=== PATIENT | female | born 1965 | race Caucasian/White ===

== ENCOUNTER 2024-01-04 17:53 | Observation (INO) | payer OTHER ==
[2024-01-04 19:42] LABS: Anisocytosis Slight; Basophils % (A) 0 %; Eosinophils # (A) 0.1 k/uL (0-0.7); Eosinophils % (A) 2 %; HCT 30.7 % (34.0-46.0); HGB 9.8 gm/dL (11.4-16.0); Hypochromasia Marked; Lymphocytes # (A) 0.4 k/uL (1.0-4.8); Lymphocytes % (A) 13 %; MCH 32.6 pg (25.0-35.0); MCHC 31.7 g/dL (31.0-37.0); MCV 102.7 fL (80.0-100.0); Macrocytosis Moderate; Mean Platelet Volume 9.5; Monocytes # (A) 0.2 k/uL (0-1.0); Monocytes % (A) 8 %; Neutrophils # (A) 2.1 k/uL (1.3-7.7); Neutrophils % (A) 75 %; RBC 2.99 m/uL (3.80-5.40); WBC 2.8 k/uL (3.8-10.6)
[2024-01-04 19:59] LABS: ALT 47 U/L (4-34); African American GFR (CKD) >90 (>60 ml/min/1.73 sqM); Albumin 2.5 g/dL (3.5-5.0); Anion Gap 4 mmol/L; Blood Urea Nitrogen 11 mg/dL (7-17); Calcium 7.6 mg/dL (8.4-10.2); Carbon Dioxide 28 mmol/L (22-30); Chloride 108 mmol/L (98-107); Glucose 120 mg/dL (74-99); Non-African American GFR(CKD) 90 (>60 ml/min/1.73 sqM); Sodium 140 mmol/L (137-145); Total Bilirubin 1.4 mg/dL (0.2-1.3); Total Protein 5.8 g/dL (6.3-8.2)
[2024-01-04 20:02] LABS: AST 75 U/L (14-36); Alkaline Phosphatase 139 U/L (38-126); Magnesium 1.4 mg/dL (1.6-2.3); NT-Pro-B-Type Natriuretic Pept 279 pg/mL; Potassium 3.3 mmol/L (3.5-5.1)
[2024-01-04] MEDS: IPRATROPIUM-ALBUTEROL 3 ML NEB INHALATION STA (20:25)
--- NOTE | 2024-01-04 20:53 | XR ---
EXAMINATION TYPE: XR chest 2V DATE OF EXAM: 01/04/2024 7:36 PM CLINICAL INDICATION:Female, 58 years old with history of difficulty breathing COMPARISON: None TECHNIQUE: XR chest 2V frontal and lateral views. FINDINGS: Patient is slightly rotated on exam. Patchy airspace and interstitial opacities are seen. Trace bilateral pleural effusions. No pneumothor ax. The cardiac silhouette is unremarkable. Surgical hardware is seen in the cervical spine and parti ally within the left humerus. Left humeral head deformity is noted. IMPRESSION: 1. Patchy airspace disease may relate to acute infectious/inflammatory process. 2. Mild pulmonary edema. 3. Remote-appearing left humeral head deformity. Correlate with point tenderness.
[2024-01-04 21:02] LABS: INR 1.6 (<1.2); Partial Thromboplastin Time 31.1 sec (22.0-30.0); Prothrombin Time 16.3 sec (10.0-12.5)
[2024-01-04 21:23] LABS: Poikilocytosis (M) Present; RBC Fragments Present
[2024-01-04 21:24] LABS: Platelet Count 50 k/uL (150-450)
--- NOTE | 2024-01-04 21:50 | US ---
EXAMINATION TYPE: US liver DATE OF EXAM: 01/04/2024 COMPARISON: NONE CLINICAL INDICATION: Female, 58 years old with history of eval for cirrhosis; Hep C. Eval for cirrhos is. Abdominal distention. Patient states slight pain TECHNIQUE: Multiple sonographic images of the right upper quadrant are obtained. FINDINGS: EXAM MEASUREMENTS: Liver Length: 17.0 cm Gallbladder Wall: Anechoic area seen that may represent the gallbladder, wall measures 0.2cm. CBD: 1.4m Right Kidney: 8.6 x 5.0 x 4.8cm FIREFIGHTER NOTES:Very limited due to overlying bowel and patient body habitus Pancreas: Obscured by bowel gas Liver: Nodular contour, coarse echotexture. Free fluid seen within the abdomen Gallbladder: Structure seen that may represent the gallbladder vs fluid. WNL as best seen Evidence for sonographic Smith's sign: No CBD: Enlarged measuring 1.4 cm. Right Kidney: Very difficult to visualize, small echogenic area seen which may relate to small focus of fat versus nonobstructive punctate calculus. Small volume of fluid is noted within the 4 quadrants of the abdomen most pronounced in the bilateral lower quadrants. IMPRESSION: 1. Cirrhotic liver with small volume intra-abdominal ascites. 2. Enlarged common bile duct. Correlate with any known history or prior imaging otherwise further saima racterization with MRCP is recommended.
[2024-01-04] MEDS ORDERED: NALOXONE 0.4 MG/ML 1 ML VIAL IV PRN (21:59)
[2024-01-04] MEDS: MAGNESIUM SULFATE-D5W PMX 1 GM in DEXTROSE/WATER 1 100ML.BAG IVPB ONE (22:07)
[2024-01-04 22:10] LABS: Appearance,Urine Cloudy (Clear); Bacteria,Urine Few /hpf; Bilirubin,Urine Negative (Negative); Blood,Urine Negative (Negative); Color,Urine Yellow; Glucose,Urine (UA) Negative (Negative); Hyaline Casts,Urine 11 /lpf (0-2); Ketones,Urine Negative (Negative); Leukocyte Esterase,Urine Large (Negative); Mucus,Urine Occasional /hpf; Nitrite,Urine Positive (Negative); Protein,Urine Negative (Negative); RBC,Urine 1 /hpf (0-5); Specific Gravity,Urine 1.017 (1.001-1.035); Squamous Epithelial Cell,Urine 3 /hpf (0-4); Urobilinogen,Urine <2.0 mg/dL (<2.0); WBC,Urine 112 /hpf (0-5)
--- NOTE | 2024-01-04 22:20 | ED ---
General Adult HPI - General Chief complaint: Recheck/Abnormal Lab/Rx Stated complaint: fluid retention Time Seen by Provider: 01/04/24 19:04 Source: patient, RN notes reviewed, old records reviewed Mode of arrival: ambulatory - History of Present Illness Initial comments: Patient is a 58-year-old female presents emergency department for lower extremity swelling, abdominal swelling, nonproductive cough. Symptoms have been ongoing for weeks with worsening of symptoms over the last few days. Patient is currently at [facility] for cocaine abuse. Does have a remote history of hepatitis as well as cirrhosis. Was just started on diuretic recently however presents for further evaluation at this time. Think she has a history of heart failure but is noncompliant with medications. Has a history of COPD. Is not usually on oxygen. Denies any productive cough. Denies chest pain. Denies abdominal pain. Denies nausea or vomiting or diarrhea. No other acute c omplaints at this time. - Related Data Allergies Allergy/AdvReac Type Severity Reaction Status Date / Time tetracycline Allergy Rash/Hives Verified 01/04/24 21:13 Review of Systems ROS Statement: Those systems with pertinent positive or pertinent negative responses have been documented in the HPI. Review of Systems: CONST: Denies fever EYES: Denies blurry vision ENT: Denies nasal congestion C/V: Denies Chest pain RESP: Denies shortness of breath GI: Endorses abdominal distention : Denies dysuria SKIN: Denies rash. MSK: Endorses lower extremity swelling NEURO: Denies headache ROS Other: All systems not noted in ROS Statement are negative. Past Medical History Past Medical History: Heart Failure, COPD, Liver Disease Additional Past Medical History / Comment(s): hep c History of Any Multi-Drug Resistant Organisms: MRSA Date of last positivie culture/infection: 1999 MDRO Source:: skull Past Surgical History: Orthopedic Surgery Additional Past Surgical History / Comment(s): C1C2 fusion. Fusion thoracic spine. Brain bleed sx Past Psychological History: PTSD Smoking Status: Current every day smoker Past Alcohol Use History: Occasional Past Drug Use History: Cocaine, Opiates, Prescription Drug Abuse General Exam - General Exam Comments Initial Comments: General: Appears in no acute distress. HEAD: Normal with no signs of head trauma. EYES: PERRLA, EOMI, conjunctiva normal, no discharge. ENT: Hearing grossly intact, normal oropharynx. RESPIRATORY: Coarse breath sounds bilaterally. No significant hypoxia. No significant increased work of breathing. C/V: Regular rate and rhythm. S1 and S2 auscultated, bilateral lower extremity pitting edema, peripheral pulses 2+ and intact throughout ABD: Abdomen is distended. No tenderness. EXT: Normal range of motion, no obvious deformity SKIN: No rashes or lesions observed on exposed skin. NEURO: Alert and oriented x 4. Course Vital Signs 01/04/24 01/04/24 01/04/24 18:11 18:42 19:00 Temperature 98.5 F Pulse Rate 79 Respiratory 18 Rate Blood Pressure 125/77 122/58 O2 Sat by Pulse 94 L 93 L Oximetry 01/04/24 01/04/24 01/04/24 19:30 20:00 20:27 Temperature Pulse Rate 86 80 82 Respiratory 14 17 Rate Blood Pressure 104/68 O2 Sat by Pulse Oximetry 01/04/24 01/04/24 01/04/24 20:30 20:35 21:00 Temperature Pulse Rate 79 89 86 Respiratory 16 14 Rate Blood Pressure 118/75 98/59 O2 Sat by Pulse Oximetry 01/04/24 21:48 Temperature Pulse Rate 87 Respiratory 16 Rate Blood Pressure 113/65 O2 Sat by Pulse 97 Oximetry Medical Decision Making - Medical Decision Making Was pt. sent in by a medical professional or institution (, PA, BUNDLE SHAKER, urgent care, hospital, or usp...) When possible be specific @ -No Did you speak to anyone other than the patient for history (EMS, parent, family, police, friend...)? What history was obtained from this source @ -No Did you review nursing and triage notes (agree or disagree)? Why? @ -I reviewed and agree with nursing and triage notes Were old charts reviewed (outside hosp., previous admission, EMS record, old EKG, old radiological studies, urgent care reports/EKG's, usp records)? Report findings @ -No old charts were reviewed Differential Diagnosis (chest pain, altered mental status, abdominal pain women, abdominal pain men, vaginal bleeding, weakness, fever, dyspnea, syncope, headache, dizziness, GI bleed, back pain, seizure, CVA, palpatations, mental health, musculoskeletal)? @ -CHF, ascites, cirrhosis of the liver. This list is not all inclusive. EKG interpreted by me (3pts min.). @ -As above X-rays interpreted by me (1pt min.). @ -Chest x-ray interpreted by myself as revealing pulmonary vascular congestion and edema. Radiology concern for patchy airspace disease but clinical presen leander fits more with CHF and I believe this is likely the cause of the chest x- ray findings. CT interpreted by me (1pt min.). @ -None done U/S interpreted by me (1pt. min.). @ -Liver ultrasound shows cirrhosis. What testing was considered but not performed or refused? (CT, X-rays, U/S, labs)? Why? @ -None What meds were considered but not given or refused? Why? @ -None Did you discuss the management of the patient with other professionals (professionals i.e. , PA, [facility], lab, RT, psych nurse, psychiatric social worker supervisor, bundle packer, teacher, police officer crime prevention, director of casework services)? Give summary @ -Spoke with admitting physician, Dr. Avila who accepted the admission. Was smoking cessation discussed for >3mins.? @ -No Was critical care preformed (if so, how long)? @ -No Were there social determinants of health that impacted care today? How? (Homelessness, low income, unemployed, alcoholism, drug addiction, transportation, low edu. Level, literacy, decrease access to med. care, ch[facility], rehab)? @ -No Was there de-escalation of care discussed even if they declined (Discuss DNR or withdrawal of care, Hospice)? DNR status @ -No What co-morbidities impacted this encounter? (DM, HTN, Smoking, COPD, CAD, Canc er, CVA, ARF, Chemo, Hep., AIDS, mental health diagnosis, sleep apnea, morbid obesity)? @ -Cirrhosis, hepatitis, history of cocaine abuse Was patient admitted / discharged? Hospital course, mention meds given and route, prescriptions, significant lab abnormalities, going to OR and other pertinent info. @ -Patient presents with volume overload. Appears to be CHF based on her symptoms. She does have ascites and this could be contributed as well. We will obtain cardiopulmonary workup. She was in agreement this plan. Vital signs within acceptable limits. EKG shows no findings of acute ischemia chest x-ray shows what I interpret to be pulmonary vascular congestion. Radiology is concern for possible pneumonia however patient has no productive cough. Cough is nonproductive. No fevers. No congestion. She does have clinical lower extremity edema, exertional dyspnea. This seems to be more congestive heart failure and not infectious etiology. Liver ultrasound shows liver cirrhosis. Labs remarkable for anemia, leukopenia, hypomagnesemia, as well as slightly elevated LFTs. BNP is not significantly elevated however clinically patient does present as a CHF exacerbation. Urinalysis did return remarkable for findings consistent with UTI. On reevaluation, vitals remain within acceptable limits. Patient be started on IV antibiotics for urinalysis and urine culture sent. Patient be initiated on IV Lasix. Echo will be ordered. Cardiology consulted. Patient was in agreement this plan. I spoke with Dr. Avila of [facility] who accepted the admission and was in agreement the plan. Undiagnosed new problem with uncertain prognosis? @ -No Drug Therapy requiring intensive monitoring for toxicity (Heparin, Nitro, Insulin, Cardizem)? @ -No Were any procedures done? @ -No Diagnosis/symptom? @ -CHF, ascites, UTI, cirrhosis Acute, or Chronic, or Acute on Chronic? @ -Acute Uncomplicated (without systemic symptoms) or Complicated (systemic symptoms)? @ -Complicated Side effects of treatment? @ -No Exacerbation, Progression, or Severe Exacerbation? @ -No Poses a threat to life or bodily function? How? (Chest pain, [place], PR, pneumonia, PE, COPD, DKA, ARF, appy, cholecystitis, CVA, Diverticulitis, Homicidal, Suicidal, threat to staff... and all critical care pts) @ -Yes - Lab Data Result diagrams: 01/04/24 19:14 01/04/24 19:14 Lab Results 01/04/24 01/04/24 01/04/24 Range/Units 19:14 19:14 19:14 WBC 2.8 L (3.8-10.6) k/uL RBC 2.99 L (3.80-5.40) m/uL Hgb 9.8 L (11.4-16.0) gm/dL Hct 30.7 L (34.0-46.0) % MCV 102.7 H (80.0-100.0) fL MCH 32.6 (25.0-35.0) pg MCHC 31.7 (31.0-37.0) g/dL RDW 17.0 H (11.5-15.5) % Plt Count 50 L (150-450) k/uL MPV 9.5 Neutrophils % 75 % Lymphocytes % 13 % Monocytes % 8 % Eosinophils % 2 % Basophils % 0 % Neutrophils # 2.1 (1.3-7.7) k/uL Lymphocytes # 0.4 L (1.0-4.8) k/uL Monocytes # 0.2 (0-1.0) k/uL Eosinophils # 0.1 (0-0.7) k/uL Basophils # 0.0 (0-0.2) k/uL Manual Slide Review Performed Hypochromasia Marked Poikilocytosis (manual Present Anisocytosis Slight Macrocytosis Moderate Fragmented RBCs Present PT (10.0-12.5) sec INR (<1.2) APTT (22.0-30.0) sec Sodium 140 (137-145) mmol/L Potassium 3.3 L (3.5-5.1) mmol/L Chloride 108 H (98-107) mmol/L Carbon Dioxide 28 (22-30) mmol/L Anion Gap 4 mmol/L BUN 11 (7-17) mg/dL Creatinine 0.74 (0.52-1.04) mg/dL Est GFR (CKD-EPI)AfAm >90 (>60 ml/min/1.73 sqM) Est GFR (CKD-EPI)NonAf 90 (>60 ml/min/1.73 sqM) Glucose 120 H (74-99) mg/dL Calcium 7.6 L (8.4-10.2) mg/dL Magnesium 1.4 L (1.6-2.3) mg/dL Total Bilirubin 1.4 H (0.2-1.3) mg/dL AST 75 H (14-36) U/L ALT 47 H (4-34) U/L Alkaline Phosphatase 139 H (38-126) U/L Troponin I (0.000-0.034) ng/mL NT-Pro-B Natriuret Pep 279 pg/mL Total Protein 5.8 L (6.3-8.2) g/dL Albumin 2.5 L (3.5-5.0) g/dL Urine Color Yellow Urine Appearance Cloudy H (Clear) Urine pH 6.0 (5.0-8.0) Ur Specific [place] 1.017 (1.001-1.035) Urine Protein Negative (Negative) Urine Glucose (UA) Negative (Negative) Urine Ketones Negative (Negative) Urine Blood Negative (Negative) Urine Nitrite Positive H (Negative) Urine Bilirubin Negative (Negative) Urine Urobilinogen <2.0 (<2.0) mg/dL Ur Leukocyte Esterase Large H (Negative) Urine RBC 1 (0-5) /hpf Urine WBC 112 H (0-5) /hpf Urine WBC Clumps Rare H (None) /hpf Ur Squamous Epith Cells 3 (0-4) /hpf Urine Bacteria Few H (None) /hpf Hyaline Casts 11 H (0-2) /lpf Urine Mucus Occasional H (None) /hpf 01/04/24 01/04/24 Range/Units 19:14 20:35 WBC (3.8-10.6) k/uL RBC (3.80-5.40) m/uL Hgb (11.4-16.0) gm/dL Hct (34.0-46.0) % MCV (80.0-100.0) fL MCH (25.0-35.0) pg MCHC (31.0-37.0) g/dL RDW (11.5-15.5) % Plt Count (150-450) k/uL MPV Neutrophils % % Lymphocytes % % Monocytes % % Eosinophils % % Basophils % % Neutrophils # (1.3-7.7) k/uL Lymphocytes # (1.0-4.8) k/uL Monocytes # (0-1.0) k/uL Eosinophils # (0-0.7) k/uL Basophils # (0-0.2) k/uL Manual Slide Review Hypochromasia Poikilocytosis (manual Anisocytosis Macrocytosis Fragmented RBCs PT 16.3 H (10.0-12.5) sec INR 1.6 H (<1.2) APTT 31.1 H (22.0-30.0) sec Sodium (137-145) mmol/L Potassium (3.5-5.1) mmol/L Chloride (98-107) mmol/L Carbon Dioxide (22-30) mmol/L Anion Gap mmol/L BUN (7-17) mg/dL Creatinine (0.52-1.04) mg/dL Est GFR (CKD-EPI)AfAm (>60 ml/min/1.73 sqM) Est GFR (CKD-EPI)NonAf (>60 ml/min/1.73 sqM) Glucose (74-99) mg/dL Calcium (8.4-10.2) mg/dL Magnesium (1.6-2.3) mg/dL Total Bilirubin (0.2-1.3) mg/dL AST (14-36) U/L ALT (4-34) U/L Alkaline Phosphatase (38-126) U/L Troponin I 0.020 (0.000-0.034) ng/mL NT-Pro-B Natriuret Pep pg/mL Total Protein (6.3-8.2) g/dL Albumin (3.5-5.0) g/dL Urine Color Urine Appearance (Clear) Urine pH (5.0-8.0) Ur Specific [place] (1.001-1.035) Urine Protein (Negative) Urine Glucose (UA) (Negative) Urine Ketones (Negative) Urine Blood (Negative) Urine Nitrite (Negative) Urine Bilirubin (Negative) Urine Urobilinogen (<2.0) mg/dL Ur Leukocyte Esterase (Negative) Urine RBC (0-5) /hpf Urine WBC (0-5) /hpf Urine WBC Clumps (None) /hpf Ur Squamous Epith Cells (0-4) /hpf Urine Bacteria (None) /hpf Hyaline Casts (0-2) /lpf Urine Mucus (None) /hpf - EKG Data -: EKG Interpreted by Me EKG Comments: 12-lead Electrocardiogram Interpretation Note EKG was reviewed and interpreted by myself. 12-lead ECG performed at 1910 is interpreted by me as revealing normal sinus rhythm at a rate of 84 beats per minute. [place] is normal. [place] interval is 144 ms, QRS durations 101 ms, QTc is 430 ms.. There were no ST or T wave abnormalities to suggest myocardial ischemia or injury. R wave progression across the precordium was satisfactory. By my interpretation this EKG is non-diagnostic for acute ischemia. Disposition Clinical Impression: CHF (congestive heart failure), Ascites, Cirrhosis, UTI (urinary tract infection) Disposition: ADMITTED IP TO THIS HOSP Condition: Stable Time of Disposition: 21:59
[2024-01-04] MEDS: FUROSEMIDE 10 MG/ML 4 ML VIAL IV STA (23:07)
[2024-01-04] MEDS ORDERED: Potassium Replacement Protocol 1 EACH MISC MISCELLANE PRN (23:23)
[2024-01-04] MEDS: POTASSIUM CHLORIDE ER 20 MEQ TAB.ER PO SCH (23:43)
--- NOTE | 2024-01-05 01:06 | P.HPIM ---
History of Present Illness H&P Date: 01/04/24 Chief Complaint: SOB, ascites Patient is a 58-year-old female with a history of COPD, and unconfirmed congestive heart failure and liver failure secondary to hepatitis C presents to the ER with progressively worsening dyspnea since 1 week. Patient states that her dyspnea is exertional, worse with movements such as walking and standing up from sitting position and better with rest. It is associated with mild cough with clear and nonbloody 1 teaspoonful sputum. Patient denies chest pain. Patient also endorses bilateral leg swelling since 2 weeks. Patient states her right leg is worse than left and she was started on Lasix 40 mg p.o. daily 2 weeks ago at [facility] [address]. Reports that Lasix has been mildly effective in reducing her swelling of both legs. Denies recent hospitalization, calf pain, recent travel. Patient also endorses abdominal distention since 1 week and reports no previous episodes of ascites. Patient denies tremors. Patient states that she has been treated for congestive heart failure 6 months ago at [facility] and her symptoms especially shortness of breath is much worse this time around. Denies any prior episodes of heart failure and/or stroke. Patient reports that she has a remote history of hepatitis C. Per patient, she always knew that she has hepatitis C from long time but was diagnosed as per serology at [facility] while she was getting treated for CHF. Patient is currently undergoing rehab at [place] for drug addiction. Patient admits to having had used cocaine, fentanyl, and morphine in the past. Patient used cocaine last time 2 weeks ago before her rehab started. Patient otherwise denies fever, chills, nausea, vomiting, dizziness, abdominal pain, numbness or tingling or weakness in upper or lower extremities. At the end of interview, she does however reports increased urinary urgency and frequency since 1 week with no burning pain upon urination. Chest x-ray in the ER shows patchy airspace disease may relate to acute infectious/inflammatory process. Mild pulmonary edema. Liver ultrasound is remarkable for small volume of fluid within the 4 quadrants of the abdomen most pronounced in the bilateral lower quadrants EKG in the ER shows sinus rhythm with heart rate 84 bpm. WV interval 144 ms. QTc 433 ms, not prolonged. Normal R wave progression. Laboratory evaluation shows WBC 2.8, hemoglobin 9.8, hematocrit 30.7, MCV 102.7, platelet count 50, PT 16.3, INR 1.6, APTT 31.1, sodium 140, potassium 3.3, chloride 108, bicarb 28, BUN 11, creatinine 0.74, EGFR 90, glucose 120, calcium 7.6, magnesium 1.4, total bilirubin 1.4, AST 75, ALT 47, alkaline phosphate 139, troponin one 0.02, NT proBNP 279, albumin 2.5. Urinalysis shows nitrate positive, leukoesterase positive. Review of systems: Pertinent positives and negatives as discussed in HPI, a complete review of systems was performed and all other systems are negative. Social history: Tobacco: 2 packs/day x 25 years, quit recently Alcohol: Occasionally Recreational drugs: Cocaine (last used 2 weeks ago), opioids Travel: None Occupation: None Family History: Noncontributory Physical examination: Vital signs reviewed General: non toxic, no distress, appears at stated age, normal weight Derm: Large petechiae on the lateral side of the right upper arm (patient reports accidentally bumping into thermostat on the wall at the rehab center 2 weeks ago). No unusual rashes/lesions, warm Head: atraumatic, normocephalic, symmetric Eyes: EOMI, no lid lag, anicteric sclera, pupils equal round reactive to light ENT: Nose and ears atraumatic Mouth: no lip lesion, mucus membranes moist Cardiovascular: S1S2 reg, no murmur, positive dorsalis pedis pulse bilateral, ++ bilateral peripheral edema legs Lungs: Diffuse wheezing with bilateral expiratory rhonchi, no rales, no accessory muscle use Abdominal: Distended, nontender to palpation, no guarding, bowel sounds positive, transmitted thrill positive Ext: muscle strength 5 out of 5 in all 4 extremities grossly, no gross muscle atrophy, no contractures, Neuro: CN II-XI grossly intact, no gross focal neuro deficits Psych: Alert, oriented, appropriate affect Assessment/Plan: 58-year-old female with a history of COPD, and unconfirmed congestive heart failure and liver failure secondary to hepatitis C presents to the ER with progressively worsening dyspnea with peripheral edema, ascites and UTI since 1 to 2 weeks. #Acute on chronic congestive heart Chest x-ray in the ER shows patchy airspace disease may relate to acute infectious/inflammatory process. Mild pulmonary edema. Recent history of drug abuse such as cocaine. Continue with IV Lasix 40 mg every 12 hours Continue with cardiac monitoring Consult cardiology daily weight fluid restriction to 2 L daily strict I/O s check echo #Acute COPD exacerbation Patient is not on home oxygen therapy Continue with DuoNebs [id number] and as needed Continue with oxygen therapy nasal cannula 2 L Ordered prednisone 40 mg p.o. daily #Ascites, suspected due to cirrhosis secondary to hepatitis C Order hepatitis serology panel Consult IR for diagnostic and therapeutic paracentesis check ammonia level Total bilirubin 1.4, AST 75, ALT 47, alkaline phosphatase 139, Albumin 2.5 Continue to monitor CMP Abnormal coagulation profile, likely secondary to liver failure PT 16.3, INR 1.6, APTT 31.1 Continue monitor coagulation profile Patient is not on blood thinner #Uncomplicated urinary tract infection Urinalysis is positive for nitrite and leukoesterase Follow-up with urine culture Continue with ceftriaxone 2 g IVPB every 24 over #Pancytopenia, likely secondary to hepatitis C and liver failure WBC 2.8, hemoglobin 9.8, hematocrit 30.7, platelet count 50 Patient reports no active bleeding Continue monitoring CBC #Hypokalemia, likely secondary to nutritional deficiency Potassium 3.3 Ordered per patient chloride 40 mg mg p.o. with 1 dose of 20 mg every hourX2 Continue monitor potassium level #Hypomagnesemia Magnesium 1.4 ordered magnesium sulfate 1 g IVPB once Continue monitor magnesium levels corrected Ca level is 8.8 DVT prophylaxis: Mechanical secondary to thrombocytopenia The patient is admitted with an anticipated more than 2 midnight stay for evaluation of CHF, ascites CODE STATUS: Full code Discussed with: Patient Anticipated discharge place: Home Past Medical History Past Medical History: Heart Failure, COPD, Liver Disease Additional Past Medical History / Comment(s): hep c History of Any Multi-Drug Resistant Organisms: MRSA Date of last positivie culture/infection: 1999 MDRO Source:: skull Past Surgical History: Orthopedic Surgery Additional Past Surgical History / Comment(s): C1C2 fusion. Fusion thoracic spine. Brain bleed sx Past Psychological History: PTSD Smoking Status: Current every day smoker Past Alcohol Use History: Occasional Past Drug Use History: Cocaine, Opiates, Prescription Drug Abuse Medications and Allergies Allergies Allergy/AdvReac Type Severity Reaction Status Date / Time tetracycline Allergy Rash/Hives Verified 01/04/24 21:13 Physical Exam Vitals: Vital Signs Temp Pulse Resp BP Pulse Ox 01/04/24 21:48 87 16 113/65 97 01/04/24 21:00 86 14 98/59 01/04/24 20:35 89 01/04/24 20:30 79 16 118/75 01/04/24 20:27 82 01/04/24 20:00 80 17 01/04/24 19:30 86 14 104/68 01/04/24 19:00 122/58 01/04/24 18:42 93 L 01/04/24 18:11 98.5 F 79 18 125/77 94 L Intake and Output 01/04/24 01/04/24 01/05/24 14:59 22:59 06:59 Other: Weight 63.957 kg Results CBC & Chem 7: 01/04/24 19:14 01/04/24 19:14 Labs: Abnormal Lab Results - Last 24 Hours (Table) 01/04/24 01/04/24 01/04/24 Range/Units 19:14 19:14 19:14 WBC 2.8 L (3.8-10.6) k/uL RBC 2.99 L (3.80-5.40) m/uL Hgb 9.8 L (11.4-16.0) gm/dL Hct 30.7 L (34.0-46.0) % MCV 102.7 H (80.0-100.0) fL RDW 17.0 H (11.5-15.5) % Plt Count 50 L (150-450) k/uL Lymphocytes # 0.4 L (1.0-4.8) k/uL PT (10.0-12.5) sec INR (<1.2) APTT (22.0-30.0) sec Potassium 3.3 L (3.5-5.1) mmol/L Chloride 108 H (98-107) mmol/L Glucose 120 H (74-99) mg/dL Calcium 7.6 L (8.4-10.2) mg/dL Magnesium 1.4 L (1.6-2.3) mg/dL Total Bilirubin 1.4 H (0.2-1.3) mg/dL AST 75 H (14-36) U/L ALT 47 H (4-34) U/L Alkaline Phosphatase 139 H (38-126) U/L Total Protein 5.8 L (6.3-8.2) g/dL Albumin 2.5 L (3.5-5.0) g/dL Urine Appearance Cloudy H (Clear) Urine Nitrite Positive H (Negative) Ur Leukocyte Esterase Large H (Negative) Urine WBC 112 H (0-5) /hpf Urine WBC Clumps Rare H (None) /hpf Urine Bacteria Few H (None) /hpf Hyaline Casts 11 H (0-2) /lpf Urine Mucus Occasional H (None) /hpf 01/04/24 Range/Units 20:35 WBC (3.8-10.6) k/uL RBC (3.80-5.40) m/uL Hgb (11.4-16.0) gm/dL Hct (34.0-46.0) % MCV (80.0-100.0) fL RDW (11.5-15.5) % Plt Count (150-450) k/uL Lymphocytes # (1.0-4.8) k/uL PT 16.3 H (10.0-12.5) sec INR 1.6 H (<1.2) APTT 31.1 H (22.0-30.0) sec Potassium (3.5-5.1) mmol/L Chloride (98-107) mmol/L Glucose (74-99) mg/dL Calcium (8.4-10.2) mg/dL Magnesium (1.6-2.3) mg/dL Total Bilirubin (0.2-1.3) mg/dL AST (14-36) U/L ALT (4-34) U/L Alkaline Phosphatase (38-126) U/L Total Protein (6.3-8.2) g/dL Albumin (3.5-5.0) g/dL Urine Appearance (Clear) Urine Nitrite (Negative) Ur Leukocyte Esterase (Negative) Urine WBC (0-5) /hpf Urine WBC Clumps (None) /hpf Urine Bacteria (None) /hpf Hyaline Casts (0-2) /lpf Urine Mucus (None) /hpf Assessment and Plan Assessment: I have seen and evaluated the patient today. I Discussed the case with the resident and agree with the resident's findings I edited the assessment and plan as necessary as documented in the resident's note.
[2024-01-05] MEDS ORDERED: IPRATROPIUM-ALBUTEROL 3 ML NEB INHALATION PRN (02:56)
[2024-01-05 06:25] LABS: Anisocytosis Slight; Basophils % (A) 0 %; Eosinophils # (A) 0.1 k/uL (0-0.7); Eosinophils % (A) 4 %; HCT 32.5 % (34.0-46.0); HGB 10.4 gm/dL (11.4-16.0); Hypochromasia Marked; Lymphocytes # (A) 0.4 k/uL (1.0-4.8); Lymphocytes % (A) 20 %; MCH 32.9 pg (25.0-35.0); MCHC 31.9 g/dL (31.0-37.0); MCV 103.1 fL (80.0-100.0); Macrocytosis Moderate; Mean Platelet Volume 9.5; Monocytes # (A) 0.2 k/uL (0-1.0); Monocytes % (A) 10 %; Neutrophils # (A) 1.3 k/uL (1.3-7.7); Neutrophils % (A) 61 %; RBC 3.15 m/uL (3.80-5.40); RDW 16.9 % (11.5-15.5); WBC 2.2 k/uL (3.8-10.6)
[2024-01-05 06:34] LABS: Platelet Count 60 k/uL (150-450)
[2024-01-05] MEDS: NICOTINE GUM (POLACRILEX) 2 MG GUM BUCCAL STA (06:41)
[2024-01-05 06:44] LABS: ALT 50 U/L (4-34); AST 72 U/L (14-36); African American GFR (CKD) >90 (>60 ml/min/1.73 sqM); Albumin 2.5 g/dL (3.5-5.0); Alkaline Phosphatase 128 U/L (38-126); Anion Gap 0 mmol/L; Blood Urea Nitrogen 10 mg/dL (7-17); Calcium 7.7 mg/dL (8.4-10.2); Carbon Dioxide 28 mmol/L (22-30); Chloride 110 mmol/L (98-107); Glucose 80 mg/dL (74-99); Non-African American GFR(CKD) 87 (>60 ml/min/1.73 sqM); Potassium 3.3 mmol/L (3.5-5.1); Sodium 138 mmol/L (137-145); Total Bilirubin 1.5 mg/dL (0.2-1.3); Total Protein 5.9 g/dL (6.3-8.2)
[2024-01-05] MEDS: predniSONE 20 MG TAB PO SCH (08:22)
[2024-01-05] MEDS: FUROSEMIDE 10 MG/ML 4 ML VIAL IV SCH (08:22)
[2024-01-05] MEDS: SPIRONOLACTONE 25 MG TAB PO SCH (10:10)
--- NOTE | 2024-01-05 11:05 | P.CRDCN ---
History of Present Illness History of present illness: HISTORY OF PRESENT ILLNESS: This is a 58-year-old female with a past medical history significant for congestive heart failure, hepatitis C, history of drug abuse currently on methadone, and nicotine dependence. Patient does not follow with a parts control clerk. We have been asked to see the patient in consultation for congestive heart failure. Patient examined at the bedside. Patient presented to the hospital with a chief complaint of increasing swelling in her abdomen, legs, and shortn ess of breath. She states that she has had swelling in her legs previously but never this significant in her abdomen. She states because of the bloating she is having a hard time breathing. She does report she has gained about 15 pounds in the last 2 weeks. She reports a history of hepatitis C but denies a history of liver cirrhosis. She is a current cigarette smoker and smokes 3 to 5 cigaret michelle a day. DIAGNOSTICS: - EKG reveals sinus mechanism with no signs of acute ischemia - Chest xray patchy airspace disease may relate to acute infectious/inflammatory process. Mild pulmonary edema. - Laboratory data: WBC 2.2. Hemoglobin 10.4. Platelet count 60. INR 1.6. Sodium 138. Potassium 3.3. BUN 10. Creatinine 0.76. Magnesium 1.5. Bilirubin 1.5. AST 72. ALT 50. Troponin negative x 1. proBNP 279. - Current home cardiac medications include Lasix 40 mg daily REVIEW OF SYSTEMS: At the time of my exam: CONSTITUTIONAL: Denies fever or chills. HEENT: Denies blurred vision, vision changes, or eye pain. Denies hemoptysis CARDIOVASCULAR: Denies chest pain. Denies orthopnea. Denies PND. Denies palpitations RESPIRATORY: + shortness of breath. GASTROINTESTINAL: Denies abdominal pain. Denies nausea or vomiting. + abdominal bloating HEMATOLOGIC: Denies bleeding disorders. GENITOURINARY: Denies any blood in urine. SKIN: Denies pruitis. Denies rash. PHYSICAL EXAM: VITAL SIGNS: Reviewed. GENERAL: Well-developed in no acute distress. HEENT: Head is normocephalic. Pupils are equal, round. Sclerae anicteric. Mucous membranes of the mouth are moist. Neck supple. No JVD or thyromegaly LUNGS: Respirations even and unlabored. Lungs diminished bilaterally HEART: Regular rate and rhythm. S1 and S2 heard. ABDOMEN: Firm. Distended. EXTREMITIES: Normal range of motion. No clubbing or cyanosis. Peripheral pulses intact. 3+ pitting bilateral lower extremity edema NEUROLOGIC: Awake and alert. Oriented x 3. ASSESSMENT: Shortness of breath Acute on chronic congestive heart failure, type unknown, echo pending Ascites Hepatitis C Mild transaminitis Mild coagulopathy, INR 1.6 Thrombocytopenia, platelet count 60 History of drug abuse, currently on methadone Nicotine dependence, currently smoking 3 to 5 cigarettes a day PLAN: Interventional radiology consulted for possible paracentesis Obtain 2D echo to assess cardiac structure and function Continue IV Lasix 40 mg twice a day Daily weights, accurate intake and output, and monitoring of kidney function Add Aldactone 25 mg daily Further recommendations pending patient course Nurse practitioner note has been reviewed by physician. Signing provider agrees with the documented findings, assessment, and plan of care documented by SCHOOL CROSSING GUARD SUPERVISOR as a scribe. Past Medical History Past Medical History: Heart Failure, COPD, Liver Disease Additional Past Medical History / Comment(s): hep c History of Any Multi-Drug Resistant Organisms: MRSA Date of last positivie culture/infection: 1999 MDRO Source:: skull Past Surgical History: Orthopedic Surgery Additional Past Surgical History / Comment(s): C1C2 fusion. Fusion thoracic spine. Brain bleed sx Past Psychological History: PTSD Smoking Status: Current every day smoker Past Alcohol Use History: Occasional Past Drug Use History: Cocaine, Opiates, Prescription Drug Abuse Medications and Allergies Home Medications Medication Instructions Recorded Confirmed Type Acetaminophen [Tylenol] 650 mg PO Q4H PRN 01/05/24 01/05/24 History Albuterol Sulfate [Ventolin HFA] 1 - 2 puff INHALATION RT-QID PRN 01/05/24 01/05/24 History Budesonide/Formoterol Fumarate 2 puff INHALATION RT-BID 01/05/24 01/05/24 History [Symbicort 80-4.5 Mcg Inhaler] Calcium Carbonate [Tums] 1,000 mg PO Q4H PRN 01/05/24 01/05/24 History Calcium Phos/D3/Magnesium/Zinc 1 tab PO TID PRN 01/05/24 01/05/24 History [Souirgl-Jxw-Uozz-Vitamin D3] Citalopram Hydrobromide [CeleXA] 40 mg PO DAILY 01/05/24 01/05/24 History Furosemide [Lasix] 40 mg PO DAILY 01/05/24 01/05/24 History Gabapentin 600 mg PO BID PRN 01/05/24 01/05/24 History Ibuprofen [Motrin Ib] 600 mg PO Q6H PRN 01/05/24 01/05/24 History Loperamide HCl [Imodium A-D] 4 mg PO QID PRN 01/05/24 01/05/24 History Mag Hydrox/Aluminum Hyd/Simeth 30 ml PO Q4H PRN 01/05/24 01/05/24 History [Mylanta Maximum Strength Liq] Melatonin 10 mg PO HS 01/05/24 01/05/24 History Methadone HCl [Methadone Intensol] 55 mg PO DAILY 01/05/24 01/05/24 History Multivitamins, Thera [Multivitamin 1 tab PO DAILY 01/05/24 01/05/24 History (formulary)] Thiamine [Vitamin B-1] 100 mg PO DAILY 01/05/24 01/05/24 History Zofran 2ml(4mg) 4 mg IM Q6H PRN 01/05/24 01/05/24 History ondansetron HCL [Ondansetron HCl] 8 mg PO Q6H PRN 01/05/24 01/05/24 History traZODone HCL [Desyrel] 50 mg PO HS 01/05/24 01/05/24 History Allergies Allergy/AdvReac Type Severity Reaction Status Date / Time tetracycline Allergy Rash/Hives Verified 01/04/24 21:13 Physical Exam Vitals: Vital Signs Temp Pulse Resp BP Pulse Ox 01/05/24 07:53 88 18 107/85 94 L 01/05/24 05:00 88 20 107/85 95 01/05/24 04:00 82 20 112/79 99 01/05/24 00:31 80 18 111/78 94 L 01/04/24 21:48 87 16 113/65 97 01/04/24 21:00 86 14 98/59 01/04/24 20:35 89 01/04/24 20:30 79 16 118/75 01/04/24 20:27 82 01/04/24 20:00 80 17 01/04/24 19:30 86 14 104/68 01/04/24 19:00 122/58 01/04/24 18:42 93 L 01/04/24 18:11 98.5 F 79 18 125/77 94 L Intake and Output 01/04/24 01/05/24 01/05/24 22:59 06:59 14:59 Intake Total 830 Balance 830 Intake: Oral 830 Other: Weight 63.957 kg Results 01/05/24 05:57 01/05/24 05:57 Cardiac Enzymes 01/04/24 01/04/24 01/05/24 Range/Units 19:14 19:14 05:57 AST 75 H 72 H (14-36) U/L Troponin I 0.020 (0.000-0.034) ng/mL Coagulation 01/04/24 Range/Units 20:35 PT 16.3 H (10.0-12.5) sec APTT 31.1 H (22.0-30.0) sec CBC 01/04/24 01/05/24 Range/Units 19:14 05:57 WBC 2.8 L 2.2 L (3.8-10.6) k/uL RBC 2.99 L 3.15 L (3.80-5.40) m/uL Hgb 9.8 L 10.4 L (11.4-16.0) gm/dL Hct 30.7 L 32.5 L (34.0-46.0) % Plt Count 50 L 60 L (150-450) k/uL Comprehensive Metabolic Panel 01/04/24 01/05/24 Range/Units 19:14 05:57 Sodium 140 138 (137-145) mmol/L Potassium 3.3 L 3.3 L (3.5-5.1) mmol/L Chloride 108 H 110 H (98-107) mmol/L Carbon Dioxide 28 28 (22-30) mmol/L BUN 11 10 (7-17) mg/dL Creatinine 0.74 0.76 (0.52-1.04) mg/dL Glucose 120 H 80 (74-99) mg/dL Calcium 7.6 L 7.7 L (8.4-10.2) mg/dL AST 75 H 72 H (14-36) U/L ALT 47 H 50 H (4-34) U/L Alkaline Phosphatase 139 H 128 H (38-126) U/L Total Protein 5.8 L 5.9 L (6.3-8.2) g/dL Albumin 2.5 L 2.5 L (3.5-5.0) g/dL Current Medications Generic Name Dose Route Start Last Admin Trade Name Freq PRN Reason Stop Dose Admin Albuterol/Ipratropium 3 ml 01/05/24 02:56 Ipratropium-Albuterol 3 Ml Neb INHALATION RT-Q2H PRN Shortness Of Breath Or Wheezing Furosemide 40 mg 01/05/24 09:00 01/05/24 08:22 Furosemide 10 Mg/Ml 4 Ml Vial IV 40 mg Q12HR PRECIOUS Administration Ceftriaxone Sodium 2 gm/ 50 mls @ 100 mls/hr 01/04/24 23:30 01/05/24 08:21 Sodium Chloride IVPB 100 mls/hr Q24HR PRECIOUS Administration Protocol Miscellaneous Information 1 each 01/04/24 23:23 Potassium Replacement Protocol 1 Each Misc MISCELLANE DAILY PRN Per Protocol Protocol Naloxone HCl 0.2 mg 01/04/24 21:59 Naloxone 0.4 Mg/Ml 1 Ml Vial IV Q2M PRN Opioid Reversal Prednisone 40 mg 01/05/24 09:00 01/05/24 08:22 Prednisone 20 Mg Tab PO 40 mg DAILY PRECIOUS Administration Intake and Output 01/04/24 01/05/24 01/05/24 22:59 06:59 14:59 Intake Total 830 Balance 830 Intake: Oral 830 Other: Weight 63.957 kg 01/05/24 05:57 01/05/24 05:57
[2024-01-05 11:10] LABS: Hepatitis B Surface Antigen Nonreactive (Nonreactive); Hepatitis C IgG Antibody Reactive (Nonreactive)
[2024-01-05] MEDS: METHADONE 10 MG TAB PO SCH (14:29)
[2024-01-05] MEDS: METHADONE 10 MG TAB PO ONE (14:30)
[2024-01-05] MEDS: METHADONE 5 MG TAB PO SCH (14:32)
--- NOTE | 2024-01-05 14:46 | P.PN ---
Subjective Progress Note Date: 01/05/24 Hospital course Patient is a 58-year-old female with a history of COPD, and unconfirmed congestive heart failure and liver failure secondary to hepatitis C presents to the ER with progressively worsening dyspnea since 1 week. Patient states that her dyspnea is exertional, worse with movements such as walking and standing up from sitting position and better with rest. It is associated with mild cough with clear and nonbloody 1 teaspoonful sputum. Patient denies chest pain. Patient also endorses bilateral leg swelling since 2 weeks. Patient states her right leg is worse than left and she was started on Lasix 40 mg p.o. daily 2 weeks ago at [facility]. Reports that Lasix has been mildly effective in reducing her swelling of both legs.Patient also endorses abdominal distention since 1 week and reports no previous episodes of ascites. Patient denies tremors. Patient states that she has been treated for congestive heart failure 6 months ago at [facility] and her symptoms especially shortness of breath is much worse this time around. Patient reports that she has a remote history of hepatitis C. Patient is currently undergoing rehab at [facility] for drug addiction. Patient admits to having had used cocaine, fentanyl, and morphine in the past. Patient used cocaine last time 2 weeks ago before her rehab started. She reports increased urinary urgency and frequency since 1 week with no burning pain upon urination. Chest x-ray in the ER shows patchy airspace disease may relate to acute infectious/inflammatory process. Mild pulmonary edema. Liver ultrasound is remarkable for small volume of fluid within the 4 quadrants of the abdomen most pronounced in the bilateral lower quadrants. EKG in the ER shows sinus rhythm with heart rate 84 bpm. NH interval 144 ms. QTc 433 ms, not prolonged. Normal R wave progression. Laboratory evaluation shows WBC 2.8, hemoglobin 9.8, hematocrit 30.7, MCV 102.7, platelet count 50, PT 16.3, INR 1.6, APTT 31.1, sodium 140, potassium 3.3, chloride 108, bicarb 28, BUN 11, creatinine 0.74, EGFR 90, glucose 120, calcium 7.6, magnesium 1.4, total bilirubin 1.4, AST 75, ALT 47, alkaline phosphate 139, troponin one 0.02, NT proBNP 279, albumin 2.5. Urinalysis shows nitrate positive, leukoesterase positive. Subjective: Patient seen and examined at bedside. No acute events overnight. Pertinent positives and negatives as discussed above, a complete review of systems was performed and all other systems are negative. Vitals: Signs Reviewed Physical Exam: General: non toxic, no distress, appears at stated age, normal weight Derm: Large petechiae on the lateral side of the right upper arm (patient reports accidentally bumping into thermostat on the wall at the rehab center 2 weeks ago). No unusual rashes/lesions, warm Head: atraumatic, normocephalic, symmetric Eyes: EOMI, no lid lag, anicteric sclera, pupils equal round reactive to light ENT: Nose and ears atraumatic Mouth: no lip lesion, mucus membranes moist Cardiovascular: S1S2 reg, no murmur, positive dorsalis pedis pulse bilateral, ++ bilateral peripheral edema legs Lungs: Diffuse wheezing with bilateral expiratory rhonchi, no rales, no accessory muscle use Abdominal: Distended, nontender to palpation, no guarding, bowel sounds positive, transmitted thrill positive Ext: muscle strength 5 out of 5 in all 4 extremities grossly, no gross muscle atrophy, no contractures, Neuro: CN II-XI grossly intact, no gross focal neuro deficits Psych: Alert, oriented, appropriate affect Data Received Today: Pertinent Labs: WBC 2.2, Hgb 10.4, PLT 60, potassium, AST 72 ALT 50, alkaline phosphatase 120, total protein 5.9, albumin 5.2, ammonia 73, magnesium 1.5, hep C IgG antibody: Reactive Imaging: No new imaging Assessment and Plan: 58-year-old female with a history of COPD, and unconfirmed congestive heart failure and liver failure secondary to hepatitis C presents to the ER with progressively worsening dyspnea with peripheral edema, ascites and UTI since 1 to 2 weeks. #Suspected acute on chronic CHF Chest x-ray in the ER shows patchy airspace disease may relate to acute infectious/inflammatory process. Mild pulmonary edema. Recent history of drug abuse such as cocaine. Continue with cardiac monitoring daily weight checks fluid restriction to 2 L daily strict I/O s Echo pending Cardiology note reviewed.Continue with IV Lasix 40 mg every 12 hours. Added spironolactone 25mg p.o. daily #Acute COPD exacerbation Patient is not on home oxygen therapy Continue with DuoNebs [id number] and as needed Continue with oxygen therapy nasal cannula 2 L Ordered prednisone 40 mg p.o. daily On Symbicort inhaler #Ascites, suspected due to cirrhosis secondary to hepatitis C hep C IgG antibody: Reactive ammonia 73 Continue to monitor CMP Abnormal coagulation profile, likely secondary to liver failure 40 mg IV Lasix Continue monitor coagulation profile Continue spironolactone 25 mg p.o. daily Continue with ceftriaxone 2 g IVPB, SPO ppx Consulted IR for diagnostic and therapeutic paracentesis #Uncomplicated urinary tract infection Urinalysis is positive for nitrite and leukoesterase Follow-up with urine culture #Pancytopenia, likely secondary to hepatitis C and liver failure WBC 2.8, hemoglobin 9.8, hematocrit 30.7, platelet count 50 Patient reports no active bleeding Continue monitoring CBC #Hypokalemia, likely secondary to nutritional deficiency Potassium 3.3 Ordered per patient chloride 40 mg mg p.o. with 1 dose of 20 mg every hourX2 Continue monitor potassium level #Hypomagnesemia Magnesium 1.4 ordered magnesium sulfate 1 g IVPB once Continue monitor magnesium levels corrected Ca level is 8.8 Anxiety/depression Celexa 40 mg p.o. daily GI prophylaxis: Tums DVT prophylaxis: CODE STATUS: Full I have seen and evaluated the patient today. Discussed with the resident and agree with the residents subjective and objective as documented in the resident's note. The assessment and plan was discussed and outlined as below. Patient requesting to restart Methadone, Cymbalta, Ibuprofen and Gabapentin. Dyspnea likely related to pulmonary edema: Cardiology consulted. Lasix 40 mg IV BID. Strict intake and outtake. Daily weights. Await Echo. Acute COPD exacerbation: Duoneb scheduled and PRN for SOB/wheezing. Prednisone 40 mg PO QD. Symbicort 2 INH BID. Ascites related to decompensated cirrhosis: IR consulted for paracentesis. Rocephin 2g IV QD for SBP prophylaxis. Aldactone 25 mg PO QD. Currently being worked up outpatient for treatment of Hep C. Abnormal UA: Follow UCx. Rocephin as above. Pancytopenia and Supratherapeutic INR due to cirrhosis Hypokalemia: KCl 40 meq PO x 1. HypoMag Mag sulfate IV x 1. Objective - Vital Signs Vital signs: Vital Signs Temp 98.5 F 01/04/24 18:11 Pulse 88 01/05/24 07:53 Resp 18 07/23/24 07:53 BP 107/85 01/05/24 07:53 Pulse Ox 94 L 01/05/24 07:53 FiO2 Intake & Output 01/04/24 01/05/24 01/05/24 18:59 06:59 18:59 Intake Total 948 Balance 948 Weight 63.957 kg Intake: Oral 948 - Labs CBC & Chem 7: 01/05/24 05:57 01/05/24 05:57 Labs: Abnormal Lab Results - Last 24 Hours (Table) 01/04/24 01/04/24 01/04/24 Range/Units 19:14 19:14 19:14 WBC 2.8 L (3.8-10.6) k/uL RBC 2.99 L (3.80-5.40) m/uL Hgb 9.8 L (11.4-16.0) gm/dL Hct 30.7 L (34.0-46.0) % MCV 102.7 H (80.0-100.0) fL RDW 17.0 H (11.5-15.5) % Plt Count 50 L (150-450) k/uL Lymphocytes # 0.4 L (1.0-4.8) k/uL PT (10.0-12.5) sec INR (<1.2) APTT (22.0-30.0) sec Potassium 3.3 L (3.5-5.1) mmol/L Chloride 108 H (98-107) mmol/L Glucose 120 H (74-99) mg/dL Calcium 7.6 L (8.4-10.2) mg/dL Magnesium 1.4 L (1.6-2.3) mg/dL Total Bilirubin 1.4 H (0.2-1.3) mg/dL AST 75 H (14-36) U/L ALT 47 H (4-34) U/L Alkaline Phosphatase 139 H (38-126) U/L Ammonia (<30) umol/L Total Protein 5.8 L (6.3-8.2) g/dL Albumin 2.5 L (3.5-5.0) g/dL Urine Appearance Cloudy H (Clear) Urine Nitrite Positive H (Negative) Ur Leukocyte Esterase Large H (Negative) Urine WBC 112 H (0-5) /hpf Urine WBC Clumps Rare H (None) /hpf Urine Bacteria Few H (None) /hpf Hyaline Casts 11 H (0-2) /lpf Urine Mucus Occasional H (None) /hpf Hep C IgG Ab (Nonreactive) 01/04/24 01/05/24 01/05/24 Range/Units 20:35 05:57 05:57 WBC 2.2 L (3.8-10.6) k/uL RBC 3.15 L (3.80-5.40) m/uL Hgb 10.4 L (11.4-16.0) gm/dL Hct 32.5 L (34.0-46.0) % MCV 103.1 H (80.0-100.0) fL RDW 16.9 H (11.5-15.5) % Plt Count 60 L (150-450) k/uL Lymphocytes # 0.4 L (1.0-4.8) k/uL PT 16.3 H (10.0-12.5) sec INR 1.6 H (<1.2) APTT 31.1 H (22.0-30.0) sec Potassium 3.3 L (3.5-5.1) mmol/L Chloride 110 H (98-107) mmol/L Glucose (74-99) mg/dL Calcium 7.7 L (8.4-10.2) mg/dL Magnesium (1.6-2.3) mg/dL Total Bilirubin 1.5 H (0.2-1.3) mg/dL AST 72 H (14-36) U/L ALT 50 H (4-34) U/L Alkaline Phosphatase 128 H (38-126) U/L Ammonia (<30) umol/L Total Protein 5.9 L (6.3-8.2) g/dL Albumin 2.5 L (3.5-5.0) g/dL Urine Appearance (Clear) Urine Nitrite (Negative) Ur Leukocyte Esterase (Negative) Urine WBC (0-5) /hpf Urine WBC Clumps (None) /hpf Urine Bacteria (None) /hpf Hyaline Casts (0-2) /lpf Urine Mucus (None) /hpf Hep C IgG Ab (Nonreactive) 01/05/24 01/05/24 01/05/24 Range/Units 05:57 05:57 05:57 WBC (3.8-10.6) k/uL RBC (3.80-5.40) m/uL Hgb (11.4-16.0) gm/dL Hct (34.0-46.0) % MCV (80.0-100.0) fL RDW (11.5-15.5) % Plt Count (150-450) k/uL Lymphocytes # (1.0-4.8) k/uL PT (10.0-12.5) sec INR (<1.2) APTT (22.0-30.0) sec Potassium (3.5-5.1) mmol/L Chloride (98-107) mmol/L Glucose (74-99) mg/dL Calcium (8.4-10.2) mg/dL Magnesium 1.5 L (1.6-2.3) mg/dL Total Bilirubin (0.2-1.3) mg/dL AST (14-36) U/L ALT (4-34) U/L Alkaline Phosphatase (38-126) U/L Ammonia 73 H (<30) umol/L Total Protein (6.3-8.2) g/dL Albumin (3.5-5.0) g/dL Urine Appearance (Clear) Urine Nitrite (Negative) Ur Leukocyte Esterase (Negative) Urine WBC (0-5) /hpf Urine WBC Clumps (None) /hpf Urine Bacteria (None) /hpf Hyaline Casts (0-2) /lpf Urine Mucus (None) /hpf Hep C IgG Ab Reactive A (Nonreactive)
[2024-01-05 14:58] LABS: Hepatitis B Surface AB- Quant 3.5 mIU/mL
--- NOTE | 2024-01-05 17:40 | CA ---
Transthoracic Echo Report Name: Lyn West Age: 58 Gender: F : 1965 Exam Date: 01/05/2024 10:21 Exam Location: [place] Echo Ht (in): 64 Wt (lb): 141 Ordering Physician: Milton Shankar MD Attending/Referring Phys: Electric Motor Repair Supervisor Sanjuana Barnett RDCS Procedure CPT: Indications: chf Cardiac Hx: Technical Quality: Good Contrast 1: Total Dose (mL): Contrast 2: Total Dose (mL): MEASUREMENTS (Male / Female) Normal Values 2D ECHO LV Diastolic Diameter PLAX 3.8 cm 4.2 - 5.9 / 3.9 - 5.3 cm LV Systolic Diameter PLAX 2.7 cm IVS Diastolic Thickness 0.9 cm 0.6 - 1.0 / 0.6 - 0.9 cm LVPW Diastolic Thickness 0.9 cm 0.6 - 1.0 / 0.6 - 0.9 cm LV Relative Wall Thickness 0.5 RV Internal Dim ED PLAX 2.8 cm LA Systolic Diameter LX 3.8 cm 3.0 - 4.0 / 2.7 - 3.8 cm LV Diastolic Volume MOD 4C 87.4 cm??? LV Systolic Volume MOD 4C 38.7 cm??? LV Ejection Fraction MOD 4C 55.7 % LV Cardiac Index MOD 4C 2166.2 cm???/min???m??? LV Diastolic Length 4C 8.3 cm LV Systolic Length 4C 6.1 cm LV Diastolic Volume MOD 2C 77.2 cm??? LV Systolic Volume MOD 2C 24.7 cm??? LV Ejection Fraction MOD 2C 68.0 % LV Cardiac Index MOD 2C 2335.9 cm???/min???m??? LV Diastolic Length 2C 8.9 cm LV Systolic Length 2C 6.1 cm LA Volume 58.0 cm??? 18 - 58 / 22 - 52 cm??? LA Volume Index 34.0 cm???/m??? 16 - 28 cm???/m??? M-MODE Aortic Root Diameter MM 2.9 cm AV Cusp Separation MM 2.2 cm DOPPLER AV Peak Velocity 201.1 cm/s AV Peak Gradient 16.2 mmHg AV Mean Velocity 131.7 cm/s AV Mean Gradient 8.0 mmHg AV Velocity Time Integral 44.2 cm LVOT Peak Velocity 177.0 cm/s LVOT Peak Gradient 12.5 mmHg LVOT Velocity Time Integral 40.8 cm MV Area PHT 2.7 cm??? Mitral E Point Velocity 133.8 cm/s Mitral A Point Velocity 122.5 cm/s Mitral E to A Ratio 1.1 MV Deceleration Time 275.9 ms TR Peak Velocity 302.7 cm/s TR Peak Gradient 36.7 mmHg Right Ventricular Systolic Press 41.7 mmHg FINDINGS Left Ventricle Left ventricular ejection fraction is estimated at 60-65 %. Small left ventricular cavity. Normal left ventricular wall motion. Left ventricular wall thickness normal. Right Ventricle Normal right ventricular size and function. Mild pulmonary hypertension. Right Atrium Normal right atrial size. No right atrial thrombus or mass seen. Left Atrium Mildly increased left atrial volume. No left atrial thrombus or mass present. Mitral Valve Mitral valve thickened. Trace to mild mitral regurgitation. Aortic Valve Trileaflet aortic valve. No aortic valve stenosis or regurgitation. Tricuspid Valve Structurally normal tricuspid valve. Mild tricuspid regurgitation. Pulmonic Valve Structurally normal pulmonic valve. No pulmonic regurgitation. Pericardium No pericardial effusion. Pleural effusioN with fibryn Aorta Normal size aortic root and proximal ascending aorta. CONCLUSIONS Normal LV function Mild pulmonary hypertension Previewed by: Dr. Marvel Rodríguez MD (Electronically Signed) Final Date: 05 January 2024 17:39
[2024-01-05] MEDS: IBUPROFEN 400 MG TAB PO PRN (17:53)
[2024-01-05] MEDS: MAGNESIUM SULFATE-D5W PMX 1 GM in DEXTROSE/WATER 1 100ML.BAG IVPB SCH (17:55)
[2024-01-05] MEDS ORDERED: Potassium Replacement Protocol 1 EACH MISC MISCELLANE PRN (18:00)
[2024-01-05] MEDS: POTASSIUM CHLORIDE ER 20 MEQ TAB.ER PO SCH (18:07)
[2024-01-05] MEDS: traZODone HCL 50 MG TAB PO SCH (20:11)
[2024-01-05] MEDS: GABAPENTIN 300 MG CAP PO PRN (20:11)
[2024-01-05] MEDS: SYMBICORT 80-4.5 MCG INHALER INHALATION SCH (20:41)
[2024-01-06 01:13] VITALS: TEMP 98.1
[2024-01-06] MEDS: CALCIUM CARBONATE 500 MG CHEWABLE PO PRN (04:46)
[2024-01-06 08:46] VITALS: BP 113/71; PULSE 75; RESP 16
[2024-01-06] MEDS: CITALOPRAM HYDROBROMIDE 20 MG TAB PO SCH (08:46)
[2024-01-06 09:16] LABS: Anisocytosis Slight; Basophils % (A) 0 %; Eosinophils # (A) 0.1 k/uL (0-0.7); Eosinophils % (A) 3 %; HCT 31.5 % (34.0-46.0); Hypochromasia Moderate; Lymphocytes # (A) 0.5 k/uL (1.0-4.8); Lymphocytes % (A) 20 %; MCH 32.9 pg (25.0-35.0); MCHC 31.9 g/dL (31.0-37.0); Macrocytosis Moderate; Mean Platelet Volume 9.7; Monocytes # (A) 0.2 k/uL (0-1.0); Monocytes % (A) 8 %; Neutrophils # (A) 1.6 k/uL (1.3-7.7); Neutrophils % (A) 65 %; RBC 3.06 m/uL (3.80-5.40); RDW 17.1 % (11.5-15.5); WBC 2.5 k/uL (3.8-10.6)
[2024-01-06 09:22] LABS: Platelet Count 62 k/uL (150-450)
[2024-01-06 10:45] LABS: African American GFR (CKD) >90 (>60 ml/min/1.73 sqM); Anion Gap 2 mmol/L; Blood Urea Nitrogen 13 mg/dL (7-17); Calcium 8.3 mg/dL (8.4-10.2); Carbon Dioxide 31 mmol/L (22-30); Chloride 106 mmol/L (98-107); Glucose 91 mg/dL (74-99); Magnesium 1.8 mg/dL (1.6-2.3); Non-African American GFR(CKD) 84 (>60 ml/min/1.73 sqM); Potassium 3.6 mmol/L (3.5-5.1); Sodium 139 mmol/L (137-145)
--- NOTE | 2024-01-06 11:09 | P.DS ---
Providers Date of admission: 01/04/24 22:01 Discharge Diagnosis: Dyspnea likely related to pulmonary edema Acute COPD exacerbation Ascites related to decompensated cirrhosis Abnormal UA Pancytopenia and subtherapeutic INR due to cirrhosis Hypokalemia Hypomagnesemia Hospital Course: Patient is a 58-year-old female with a history of COPD, and unconfirmed congestive heart failure and liver failure secondary to hepatitis C presents to the ER with progressively worsening dyspnea since 1 week. Patient states that her dyspnea is exertional, worse with movements such as walking and standing up from sitting position and better with rest. It is associated with mild cough with clear and nonbloody 1 teaspoonful sputum. Patient denies chest pain. Patient also endorses bilateral leg swelling since 2 weeks. Patient states her right leg is worse than left and she was started on Lasix 40 mg p.o. daily 2 weeks ago at [facility]. Reports that Lasix has been mildly effective in reducing her swelling of both legs.Patient also endorses abdominal distention since 1 week and reports no previous episodes of ascites. Patient denies tremors. Patient states that she has been treated for congestive heart failure 6 months ago at [facility] and her symptoms especially shortness of breath is much worse this time around. Patient reports that she has a remote history of hepatitis C. Patient is currently undergoing rehab at [facility] for drug addiction. Patient admits to having had used cocaine, fentanyl, and morphine in the past. Patient used cocaine last time 2 weeks ago before her rehab started. She reports increased urinary urgency and frequency since 1 week with no burning pain upon urination. Chest x-ray in the ER shows patchy airspace disease may relate to acute infectious/inflammatory process. Mild pulmonary edema. Liver ultrasound is remarkable for small volume of fluid within the 4 quadrants of the abdomen most pronounced in the bilateral lower quadrants. EKG in the ER shows sinus rhythm with heart rate 84 bpm. MO interval 144 ms. QTc 433 ms, not prolonged. Normal R wave progression. Laboratory evaluation shows WBC 2.8, hemoglobin 9.8, hematocrit 30.7, MCV 102.7, platelet count 50, PT 16.3, INR 1.6, APTT 31.1, sodium 140, potassium 3.3, chloride 108, bicarb 28, BUN 11, creatinine 0.74, EGFR 90, glucose 120, calcium 7.6, magnesium 1.4, total bilirubin 1.4, AST 75, ALT 47, alkaline phosphate 139, troponin one 0.02, NT pr oBNP 279, albumin 2.5. Urinalysis shows nitrate positive, leukoesterase positive. IR consulted for possible diagnostic and therapeutic paracentesis. Cardiology consulted. To be admitted for further assessment. Echocardiogram left ventricular ejection fraction 60 to 65%. Small left ventricular cavity. Normal left ventricular wall motion. Left ventricular wall thickness normal. Mild pulmonary hypertension. Was seen by IR and was decided that she did not have enough fluid to do a paracentesis. She was given inhalers and oral steroids for her COPD exacerbation. Her breathing has improved. Being sent home with oral steroids to finish off course. Also being sent home with Aldactone. She is to follow-up with cardiology and PCP. She is being discharged to home. 01/06/2024: Patient seen and examined at bedside. No acute events overnight. Says shortness of breath has improved. Vital signs reviewed and stable. Physical Exam: General: non toxic, no distress, appears at stated age, normal weight Derm: No unusual rashes/lesions, warm Head: atraumatic, normocephalic, symmetric Eyes: EOMI, no lid lag, anicteric sclera, pupils equal round reactive to light ENT: Nose and ears atraumatic Mouth: no lip lesion, mucus membranes moist Cardiovascular: S1S2 reg, no murmur, positive dorsalis pedis pulse bilateral, ++ bilateral peripheral edema legs Lungs: Diffuse wheezing with bilateral expiratory rhonchi, no rales, no accessory muscle use Abdominal: Distended, nontender to palpation, no guarding, bowel sounds positive, transmitted thrill positive Ext: muscle strength 5 out of 5 in all 4 extremities grossly, no gross muscle atrophy, no contractures, Neuro: CN II-XI grossly intact, no gross focal neuro deficits Psych: Alert, oriented, appropriate affect A total of 30 minutes of time were spent preparing this complex discharge summary. Patient was discharge on 01/06/2024 at 10:58 AM Expected date of discharge: 01/06/24 Attending physician: Evan Avila MD Consults: 01/04/24 22:50 Consult Physician Routine Consulting Provider: [facility] Consult Reason/Comments: volume overload, concern for chf Do you want consulting provider notified?: Yes Primary care physician: Stated None Hospital Course: I have seen and evaluated the patient today. Discussed with the resident and agree with the residents subjective and objective as documented in the resident's note. The assessment and plan was discussed and outlined as below. Breathing and lower extremity swelling improved. Not enough peritoneal fluid for paracentesis. Echo shows normal LV function. Will convert Lasix IV to 40 mg PO QD. Prescription for Aldactone 25 mg PO QD sent. 3 days of Prednisone 40 mg PO QD to complete a total of 5 days for mild asthma exacerbation. Advised 1.5L fluid restriction and 2g salt restriction. Follow up with PCP in 1-[address] Rodríguez (or her Cheese Cook) within 1 week of discharge for further workup and management of cirrhosis/Hep C. Discharge Diagnosis: Dyspnea likely related to pulmonary edema Acute COPD exacerbation Ascites related to decompensated cirrhosis from Hep C Abnormal UA Pancytopenia and Supratherapeutic INR due to cirrhosis Hypokalemia HypoMag Patient Condition at Discharge: Stable Plan - Discharge Summary Discharge Rx Participant: No New Discharge Prescriptions: New predniSONE [Deltasone] 40 mg PO DAILY #3 tab Spironolactone [Aldactone] 25 mg PO DAILY #30 tab Continue Acetaminophen [Tylenol] 650 mg PO Q4H PRN PRN Reason: Fever And/ Or Pain Thiamine [Vitamin B-1] 100 mg PO DAILY Calcium Carbonate [Tums] 1,000 mg PO Q4H PRN PRN Reason: Gi Upset Multivitamins, Thera [Multivitamin (formulary)] 1 tab PO DAILY Mag Hydrox/Aluminum Hyd/Simeth [Mylanta Maximum Strength Liq] 30 ml PO Q4H PRN PRN Reason: Gi Upset Melatonin 10 mg PO HS Loperamide HCl [Imodium A-D] 4 mg PO QID PRN PRN Reason: Loose Stool Calcium Phos/D3/Magnesium/Zinc [Wgpetey-Ojt-Joix-Vitamin D3] 1 tab PO TID PRN PRN Reason: Supplement Albuterol Sulfate [Ventolin HFA] 1 - 2 puff INHALATION RT-QID PRN PRN Reason: Shortness Of Breath Citalopram Hydrobromide [CeleXA] 40 mg PO DAILY ondansetron HCL [Zofran] 8 mg PO Q6H PRN PRN Reason: Nausea And Vomiting Zofran 2ml(4mg) 4 mg IM Q6H PRN PRN Reason: Nausea And Vomiting Furosemide [Lasix] 40 mg PO DAILY Ibuprofen [Motrin Ib] 600 mg PO Q6H PRN PRN Reason: Fever And/ Or Pain traZODone HCL [Desyrel] 50 mg PO HS Gabapentin 600 mg PO BID PRN PRN Reason: Pain Budesonide/Formoterol Fumarate [Symbicort 80-4.5 Mcg Inhaler] 2 puff INHALATION RT-BID Methadone HCl [Methadone Intensol] 55 mg PO DAILY Discharge Medication List Acetaminophen [Tylenol] 650 mg PO Q4H PRN 01/05/24 [History] Albuterol Sulfate [Ventolin HFA] 1 - 2 puff INHALATION RT-QID PRN 01/05/24 [History] Budesonide/Formoterol Fumarate [Symbicort 80-4.5 Mcg Inhaler] 2 puff INHALATION RT-BID 01/05/24 [History] Calcium Carbonate [Tums] 1,000 mg PO Q4H PRN 01/05/24 [History] Calcium Phos/D3/Magnesium/Zinc [Vwqvold-Ffs-Aunz-Vitamin D3] 1 tab PO TID PRN 01/05/24 [History] Citalopram Hydrobromide [CeleXA] 40 mg PO DAILY 01/05/24 [History] Furosemide [Lasix] 40 mg PO DAILY 01/05/24 [History] Gabapentin 600 mg PO BID PRN 01/05/24 [History] Ibuprofen [Motrin Ib] 600 mg PO Q6H PRN 01/05/24 [History] Loperamide HCl [Imodium A-D] 4 mg PO QID PRN 01/05/24 [History] Mag Hydrox/Aluminum Hyd/Simeth [Mylanta Maximum Strength Liq] 30 ml PO Q4H PRN 01/05/24 [History] Melatonin 10 mg PO HS 01/05/24 [History] Methadone HCl [Methadone Intensol] 55 mg PO DAILY 01/05/24 [History] Multivitamins, Thera [Multivitamin (formulary)] 1 tab PO DAILY 01/05/24 [History] Thiamine [Vitamin B-1] 100 mg PO DAILY 01/05/24 [History] Zofran 2ml(4mg) 4 mg IM Q6H PRN 01/05/24 [History] ondansetron HCL [Zofran] 8 mg PO Q6H PRN 01/05/24 [History] traZODone HCL [Desyrel] 50 mg PO HS 01/05/24 [History] Spironolactone [Aldactone] 25 mg PO DAILY #30 tab 01/06/24 [Rx] predniSONE [Deltasone] 40 mg PO DAILY #3 tab 01/06/24 [Rx] Follow up Appointment(s)/Referral(s): Mayda Rodríguez MD [STAFF PHYSICIAN] - 1 Week None,Stated [Primary Care Provider] - 1-2 days Activity/Diet/Wound Care/Special Instructions: 1.5 L fluid restriction Salt restriction to 2g/day Discharge Disposition: HOME SELF-CARE
--- NOTE | 2024-01-06 13:27 | P.PN ---
Subjective HISTORY OF PRESENT ILLNESS: This is a 58-year-old female with a past medical history significant for congestive heart failure, hepatitis C, history of drug abuse currently on methadone, and nicotine dependence. 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 We have been asked to see the patient in consultation for congestive heart failure. Patient examined at the bedside. Patient presented to the hospital with a chief complaint of increasing swelling in her abdomen, legs, and shortness of breath. She states that she has had swelling in her legs previously but never this significant in her abdomen. She states because of the bloating she is having a hard time breathing. She does report she has gained about 15 pounds in the last 2 weeks. She reports a history of hepatitis C but denies a history of liver cirrhosis. She is a current cigarette smoker and smokes 3 to 5 cigarettes a day. DIAGNOSTICS: - EKG reveals sinus mechanism with no signs of acute ischemia - Chest xray patchy airspace disease may relate to acute infectious/inflammatory process. Mild pulmonary edema. - Laboratory data: WBC 2.2. Hemoglobin 10.4. Platelet count 60. INR 1.6. Sodium 138. Potassium 3.3. BUN 10. Creatinine 0.76. Magnesium 1.5. Bilirubin 1.5. AST 72. ALT 50. Troponin negative x 1. proBNP 279. - Current home cardiac medications include Lasix 40 mg daily 01/06/2024 Patient examined this morning at bedside. Patient denies chest pain or pressure. She denies shortness of breath. Patient continues to have significant lower extremity edema. She remains on IV diuretics. Echocardiogram completed revealing ejection fraction 60 to 65%, mild pulmonary hypertension PHYSICAL EXAM: VITAL SIGNS: Reviewed. GENERAL: Well-developed in no acute distress. HEENT: Head is normocephalic. Pupils are equal, round. Sclerae anicteric. Mucous membranes of the mouth are moist. Neck supple. No JVD or thyromegaly LUNGS: Respirations even and unlabored. Lungs diminished bilaterally HEART: Regular rate and rhythm. S1 and S2 heard. ABDOMEN: Firm. Distended. EXTREMITIES: Normal range of motion. No clubbing or cyanosis. Peripheral pulses intact. 3-4+ pitting bilateral lower extremity edema NEUROLOGIC: Awake and alert. Oriented x 3. ASSESSMENT: Shortness of breath Acute on chronic congestive heart failure with preserved EF, 60 to 65% Ascites Hepatitis C Mild transaminitis Mild coagulopathy, INR 1.6 Thrombocytopenia, platelet count 60 History of drug abuse, currently on methadone Nicotine dependence, currently smoking 3 to 5 cigarettes a day PLAN: Continue current cardiac medications Continue IV diuretics for an additional 24-48 hours due to significant lower extremity edema Daily weights, accurate intake and output, and monitoring of kidney function Further recommendations pending patient course Nurse practitioner note has been reviewed by physician. Signing provider agrees with the documented findings, assessment, and plan of care documented by ALTERATION WORKER as a scribe. Objective - Vital Signs Vital signs: Vital Signs Temp 98.1 F 01/06/24 08:45 Pulse 75 01/06/24 08:45 Resp 16 01/06/24 08:45 BP 113/71 01/06/24 08:45 Pulse Ox 94 L 01/06/24 08:45 FiO2 Intake & Output 01/05/24 01/06/24 01/06/24 18:59 06:59 18:59 Intake Total 1488 10 Output Total 950 1000 Balance 1488 -950 -990 Weight 63.957 kg 62.3 kg Intake: IV 10 Invasive Line 2 10 Oral 1488 Output: Urine 950 1000 Other: Voiding Method Toilet Toilet # Voids 3 0 # Bowel Movements 0 - Labs CBC & Chem 7: 01/06/24 08:47 01/06/24 08:47 Labs: Abnormal Lab Results - Last 24 Hours (Table) 01/06/24 01/06/24 Range/Units 08:47 08:47 WBC 2.5 L (3.8-10.6) k/uL RBC 3.06 L (3.80-5.40) m/uL Hgb 10.0 L (11.4-16.0) gm/dL Hct 31.5 L (34.0-46.0) % MCV 103.0 H (80.0-100.0) fL RDW 17.1 H (11.5-15.5) % Plt Count 62 L (150-450) k/uL Lymphocytes # 0.5 L (1.0-4.8) k/uL Carbon Dioxide 31 H (22-30) mmol/L Calcium 8.3 L (8.4-10.2) mg/dL Microbiology - Last 24 Hours (Table) 01/05/24 01:35 Urine Culture - Final Urine,Clean Catch
== END 2024-01-06 12:45 | disposition home or self-care (01) ==
LOC: EC 17:53 → 3SCARD 22:01 → INTOOBSV 22:01 → 3SCARD 01-05 00:05 → UNDODISIN 01-06 12:45
PROVIDERS: ADMIT Internal Medicine; ATTEND Internal Medicine
DX: I50.33 Acute on chronic diastolic (congestive) heart failure (principal); J44.1 Chronic obstructive pulmonary disease with (acute) exacerbation; J45.901 Unspecified asthma with (acute) exacerbation; K74.69 Other cirrhosis of liver; R18.8 Other ascites; D61.818 Other pancytopenia; E83.42 Hypomagnesemia; E87.6 Hypokalemia; I27.20 Pulmonary hypertension, unspecified; R79.1 Abnormal coagulation profile; Z91.148 Patient's other noncompliance with medication regimen for other reason; K72.90 Hepatic failure, unspecified without coma; B19.20 Unspecified viral hepatitis C without hepatic coma; F14.20 Cocaine dependence, uncomplicated; F11.20 Opioid dependence, uncomplicated; F32.A Depression, unspecified; F41.9 Anxiety disorder, unspecified; F17.210 Nicotine dependence, cigarettes, uncomplicated; Z79.51 Long term (current) use of inhaled steroids; Z79.899 Other long term (current) drug therapy; Z88.1 Allergy status to other antibiotic agents
CPT/HCPCS: 96376 ×3; 96366 ×3; 96365; 96367; 96375; 99285; 36415; 94640 ×3; 93005; 93306; 86803; 86705; 83880; 80053 ×2; 80048; 82140; 83735 ×3; 84484; 85025 ×3; 85610; 85730; 86706; 87340; 81001; 86704; 87086; 71046; 76705; G0378 ×3; J1940 ×3; J0696 ×3; S0109 ×3; J3475 ×2; J7512 ×2

== ENCOUNTER 2024-01-10 12:57 | Observation (INO) | payer OTHER ==
--- NOTE | 2024-01-10 13:48 | ED ---
Altered Mental Status HPI - General Chief Complaint: Altered Mental Status Stated Complaint: Weakness, shaking, AMS Time Seen by Provider: 01/10/24 13:15 Source: patient, RN notes reviewed Mode of arrival: wheelchair Limitations: no limitations - History of Present Illness Initial Comments: 59-year-old female who is here from [place] where she has been on for 3 weeks for rehab for heroin and cocaine abuse who also does have a history of cirrhosis COPD hypertension she is currently a smoker. She was sent in for decreased level of consciousness slow to response to verbal stimulus. She denies any drug or alcohol use since her arrival at [place] no new edema no shortness of breath or cough fevers chills or sweats. She was noticed to have some protrusion of her tongue and some erratic extremity movements. This apparently is new per the report. MD Complaint: confusion, decreased responsiveness - Related Data Home Medications Medication Instructions Recorded Confirmed Albuterol Sulfate [Ventolin HFA] 1 - 2 puff INHALATION RT-QID PRN 01/05/24 01/10/24 Budesonide/Formoterol Fumarate 2 puff INHALATION RT-BID 01/05/24 01/10/24 [Symbicort 80-4.5 Mcg Inhaler] Calcium Carbonate [Tums] 1,000 mg PO Q4H PRN 01/05/24 01/10/24 Calcium Phos/D3/Magnesium/Zinc 1 tab PO TID PRN 01/05/24 01/10/24 [Xjimchj-Mmw-Ldpk-Vitamin D3] Citalopram Hydrobromide [CeleXA] 40 mg PO DAILY 01/05/24 01/10/24 Furosemide [Lasix] 40 mg PO DAILY 01/05/24 01/10/24 Gabapentin 600 mg PO TID PRN 01/05/24 01/10/24 Ibuprofen [Motrin Ib] 600 mg PO Q6H PRN 01/05/24 01/10/24 Loperamide HCl [Imodium A-D] 4 mg PO QID PRN MDD 16 MG 01/05/24 01/10/24 Melatonin 10 mg PO HS 01/05/24 01/10/24 Methadone HCl [Methadone Intensol] 55 mg PO DAILY 01/05/24 01/10/24 Multivitamins, Thera [Multivitamin 1 tab PO DAILY 01/05/24 01/10/24 (formulary)] Thiamine [Vitamin B-1] 100 mg PO DAILY 01/05/24 01/10/24 Zofran 2ml(4mg) 4 mg IM Q6H PRN 01/05/24 01/10/24 ondansetron HCL [Zofran] 8 mg PO Q6H PRN 01/05/24 01/10/24 traZODone HCL [Desyrel] 50 mg PO HS 01/05/24 01/10/24 Chlorpheniramine Maleate 4 mg PO Q4H PRN 01/10/24 01/10/24 [Chlor-Trimeton] Mylanta Regular Strength 30 ml PO Q4H PRN 01/10/24 01/10/24 Previous Rx's Medication Instructions Recorded Spironolactone [Aldactone] 25 mg PO DAILY #30 tab 01/06/24 Allergies Allergy/AdvReac Type Severity Reaction Status Date / Time tetracycline Allergy Rash/Hives Verified 01/10/24 16:31 Review of Systems ROS Statement: Those systems with pertinent positive or pertinent negative responses have been documented in the HPI. ROS Other: All systems not noted in ROS Statement are negative. Past Medical History Past Medical History: Heart Failure, COPD, Hypertension, Liver Disease Additional Past Medical History / Comment(s): hep c History of Any Multi-Drug Resistant Organisms: MRSA Date of last positivie culture/infection: 1999 MDRO Source:: skull Past Surgical History: Orthopedic Surgery Additional Past Surgical History / Comment(s): C1C2 fusion. Fusion thoracic spine. Brain bleed sx Past Psychological History: PTSD Smoking Status: Current every day smoker Past Alcohol Use History: Occasional Past Drug Use History: Cocaine, Opiates, Prescription Drug Abuse General Exam - General Exam Comments Initial Comments: Is a well-developed frail-appearing female who is awake and does respond though slowly to questions. She denies any pain any increased girth of his abdomen no peripheral edema that is new. Limitations: no limitations General appearance: lethargic Head exam: Present: atraumatic, normocephalic, normal inspection Eye exam: Present: normal appearance, PERRL, EOMI. Absent: scleral icterus, conjunctival injection, periorbital swelling ENT exam: Present: mucous membranes dry, other (Protrusion of the tongue) Neck exam: Present: normal inspection, full ROM, other (No Stridor JVD or bruits) Respiratory exam: Present: wheezes, decreased breath sounds Cardiovascular Exam: Present: regular rate, normal rhythm, normal heart sounds. Absent: systolic murmur, diastolic murmur, rubs, gallop, clicks GI/Abdominal exam: Present: soft, distended Extremities exam: Present: pedal edema Back exam: Present: normal inspection Neurological exam: Present: alert, CN II-XII intact Psychiatric exam: Present: flat affect Skin exam: Present: warm, dry, intact, normal color. Absent: rash Course Vital Signs 01/10/24 01/10/24 01/10/24 13:05 13:39 14:04 Temperature 98.1 F Pulse Rate 78 72 73 Respiratory 16 18 18 Rate Blood Pressure 100/60 111/76 109/68 O2 Sat by Pulse 94 L 94 L 95 Oximetry 01/10/24 01/10/24 01/10/24 15:18 15:26 17:00 Temperature Pulse Rate 70 70 Respiratory 18 16 20 Rate Blood Pressure 121/75 O2 Sat by Pulse 93 L Oximetry 01/10/24 18:00 Temperature 98.1 F Pulse Rate Respiratory 20 Rate Blood Pressure 122/82 O2 Sat by Pulse 93 L Oximetry Medical Decision Making - Medical Decision Making Discussed the findings with Dr. Serrano. The patient demonstrates altered mental status she does have an elevated ammonia level evidence of dehydration and anemia. CT negative for acute process does have elevated liver enzymes. Patient will be admitted with consultation by neurology and GI. Was pt. sent in by a medical professional or institution (, PA, EXPLORATION DRILLER, urgent care, hospital, or jail...) When possible be specific @ -No Did you speak to anyone other than the patient for history (EMS, parent, family, police, friend...)? What history was obtained from this source @ -Personnel Did you review nursing and triage notes (agree or disagree)? Why? @ -I reviewed and agree with nursing and triage notes Were old charts reviewed (outside hosp., previous admission, EMS record, old EKG, old radiological studies, urgent care reports/EKG's, jail records)? Report findings @ -Old charts were reviewed Differential Diagnosis (chest pain, altered mental status, abdominal pain women, abdominal pain men, vaginal bleeding, weakness, fever, dyspnea, syncope, headache, dizziness, GI bleed, back pain, seizure, CVA, palpatations, mental health, musculoskeletal)? @ -Mental status alteration EKG interpreted by me (3pts min.). @ -As above EKG interpreted by me normal sinus rhythm at 71 UT interval 154 QRS duration 96 QT/QTc 429/[address]-T wave changes X-rays interpreted by me (1pt min.). @ -X-ray interpreted by me no acute findings CT interpreted by me (1pt min.). @ -CT interpreted by me no evidence of acute process U/S interpreted by me (1pt. min.). @ -None done What testing was considered but not performed or refused? (CT, X-rays, U/S, labs)? Why? @ -None What meds were considered but not given or refused? Why? @ -None Did you discuss the management of the patient with other professionals (professionals i.e. , PA, EXPLORATION DRILLER, lab, RT, psych nurse, social media editor, oracle specialist, teacher, county health officer, case work aide)? Give summary @ -No Was smoking cessation discussed for >3mins.? @ -No Was critical care preformed (if so, how long)? @ -31 minutes Were there social determinants of health that impacted care today? How? (Home lessness, low income, unemployed, alcoholism, drug addiction, transportation, low edu. Level, literacy, decrease access to med. care, half-way, rehab)? @ -No Was there de-escalation of care discussed even if they declined (Discuss DNR or withdrawal of care, Hospice)? DNR status @ -No What co-morbidities impacted this encounter? (DM, HTN, Smoking, COPD, CAD, Cancer, CVA, ARF, Chemo, Hep., AIDS, mental health diagnosis, sleep apnea, morbid obesity)? @ -COPD, hypertension, cirrhosis, hepatitis C] Was patient admitted / discharged? Hospital course, mention meds given and route, prescriptions, significant lab abnormalities, going to OR and other pertinent info. @ -Hospital course was admitted Undiagnosed new problem with uncertain prognosis? @ -No Drug Therapy requiring intensive monitoring for toxicity (Heparin, Nitro, Insulin, Cardizem)? @ -No Were any procedures done? @ -No Diagnosis/symptom? @ -Confusional state, elevated ammonia level, altered mental status, dehydration Acute, or Chronic, or Acute on Chronic? @ -Default Uncomplicated (without systemic symptoms) or Complicated (systemic symptoms)? @ -Default Side effects of treatment? @ -No Exacerbation, Progression, or Severe Exacerbation? @ -No Poses a threat to life or bodily function? How? (Chest pain, [place], [place], pneumonia, PE, COPD, DKA, ARF, appy, cholecystitis, CVA, Diverticulitis, Homicidal, Suicidal, threat to staff... and all critical care pts) @ -Potential - Lab Data Result diagrams: 01/10/24 14:00 01/10/24 14:00 Lab Results 01/10/24 01/10/24 01/10/24 Range/Units 14:00 14:00 14:00 WBC 2.0 L (3.8-10.6) k/uL RBC 3.23 L (3.80-5.40) m/uL Hgb 9.8 L (11.4-16.0) gm/dL Hct 33.0 L (34.0-46.0) % MCV 102.3 H (80.0-100.0) fL MCH 30.4 (25.0-35.0) pg MCHC 29.7 L (31.0-37.0) g/dL RDW 16.7 H (11.5-15.5) % Plt Count 62 L (150-450) k/uL MPV 9.4 Neutrophils % 57 % Lymphocytes % 21 % Monocytes % 12 % Eosinophils % 6 % Basophils % 1 % Neutrophils # 1.2 L (1.3-7.7) k/uL Lymphocytes # 0.4 L (1.0-4.8) k/uL Monocytes # 0.3 (0-1.0) k/uL Eosinophils # 0.1 (0-0.7) k/uL Basophils # 0.0 (0-0.2) k/uL Manual Slide Review Performed Hypochromasia Moderate Anisocytosis Slight Macrocytosis Moderate PT 14.8 H (10.0-12.5) sec INR 1.4 H (<1.2) APTT 31.4 H (22.0-30.0) sec Sodium (137-145) mmol/L Potassium (3.5-5.1) mmol/L Chloride (98-107) mmol/L Carbon Dioxide (22-30) mmol/L Anion Gap mmol/L BUN (7-17) mg/dL Creatinine (0.52-1.04) mg/dL Est GFR (CKD-EPI)AfAm (>60 ml/min/1.73 sqM) Est GFR (CKD-EPI)NonAf (>60 ml/min/1.73 sqM) Glucose (74-99) mg/dL Calcium (8.4-10.2) mg/dL Magnesium (1.6-2.3) mg/dL Total Bilirubin (0.2-1.3) mg/dL AST (14-36) U/L ALT (4-34) U/L Alkaline Phosphatase (38-126) U/L Ammonia (<30) umol/L Creatine Kinase (30-135) U/L Troponin I (0.000-0.034) ng/mL NT-Pro-B Natriuret Pep pg/mL Total Protein (6.3-8.2) g/dL Albumin (3.5-5.0) g/dL Lipase (23-300) U/L TSH (0.465-4.680) mIU/L Urine Color Colorless Urine Appearance Clear (Clear) Urine pH 7.0 (5.0-8.0) Ur Specific [place] 1.005 (1.001-1.035) Urine Protein Negative (Negative) Urine Glucose (UA) Negative (Negative) Urine Ketones Negative (Negative) Urine Blood Negative (Negative) Urine Nitrite Negative (Negative) Urine Bilirubin Negative (Negative) Urine Urobilinogen <2.0 (<2.0) mg/dL Ur Leukocyte Esterase Negative (Negative) Urine Opiates Screen Not Detected (NotDetected) Ur Oxycodone Screen Not Detected (NotDetected) Urine Methadone Screen Detected H (NotDetected) Ur Barbiturates Screen Not Detected (NotDetected) U Tricyclic Antidepress Not Detected (NotDetected) Ur Phencyclidine Scrn Not Detected (NotDetected) Ur Amphetamines Screen Not Detected (NotDetected) U Methamphetamines Scrn Not Detected (NotDetected) U Benzodiazepines Scrn Not Detected (NotDetected) Urine Cocaine Screen Not Detected (NotDetected) U Marijuana (THC) Screen Not Detected (NotDetected) Serum Alcohol mg/dL Influenza Type A (PCR) (Not Detectd) Influenza Type B (PCR) (Not Detectd) RSV (PCR) (Not Detectd) SARS-CoV-2 (PCR) (Not Detectd) 01/10/24 01/10/24 01/10/24 Range/Units 14:00 14:00 14:00 WBC (3.8-10.6) k/uL RBC (3.80-5.40) m/uL Hgb (11.4-16.0) gm/dL Hct (34.0-46.0) % MCV (80.0-100.0) fL MCH (25.0-35.0) pg MCHC (31.0-37.0) g/dL RDW (11.5-15.5) % Plt Count (150-450) k/uL MPV Neutrophils % % Lymphocytes % % Monocytes % % Eosinophils % % Basophils % % Neutrophils # (1.3-7.7) k/uL Lymphocytes # (1.0-4.8) k/uL Monocytes # (0-1.0) k/uL Eosinophils # (0-0.7) k/uL Basophils # (0-0.2) k/uL Manual Slide Review Hypochromasia Anisocytosis Macrocytosis PT (10.0-12.5) sec INR (<1.2) APTT (22.0-30.0) sec Sodium 139 (137-145) mmol/L Potassium 4.0 (3.5-5.1) mmol/L Chloride 103 (98-107) mmol/L Carbon Dioxide 37 H (22-30) mmol/L Anion Gap -1 mmol/L BUN 15 (7-17) mg/dL Creatinine 0.68 (0.52-1.04) mg/dL Est GFR (CKD-EPI)AfAm >90 (>60 ml/min/1.73 sqM) Est GFR (CKD-EPI)NonAf >90 (>60 ml/min/1.73 sqM) Glucose 103 H (74-99) mg/dL Calcium 8.0 L (8.4-10.2) mg/dL Magnesium 1.9 (1.6-2.3) mg/dL Total Bilirubin 1.5 H (0.2-1.3) mg/dL AST 67 H (14-36) U/L ALT 48 H (4-34) U/L Alkaline Phosphatase 124 (38-126) U/L Ammonia 57 H (<30) umol/L Creatine Kinase 49 (30-135) U/L Troponin I <0.012 (0.000-0.034) ng/mL NT-Pro-B Natriuret Pep 244 pg/mL Total Protein 6.1 L (6.3-8.2) g/dL Albumin 2.8 L (3.5-5.0) g/dL Lipase 67 (23-300) U/L TSH 3.660 (0.465-4.680) mIU/L Urine Color Urine Appearance (Clear) Urine pH (5.0-8.0) Ur Specific [place] (1.001-1.035) Urine Protein (Negative) Urine Glucose (UA) (Negative) Urine Ketones (Negative) Urine Blood (Negative) Urine Nitrite (Negative) Urine Bilirubin (Negative) Urine Urobilinogen (<2.0) mg/dL Ur Leukocyte Esterase (Negative) Urine Opiates Screen (NotDetected) Ur Oxycodone Screen (NotDetected) Urine Methadone Screen (NotDetected) Ur Barbiturates Screen (NotDetected) U Tricyclic Antidepress (NotDetected) Ur Phencyclidine Scrn (NotDetected) Ur Amphetamines Screen (NotDetected) U Methamphetamines Scrn (NotDetected) U Benzodiazepines Scrn (NotDetected) Urine Cocaine Screen (NotDetected) U Marijuana (THC) Screen (NotDetected) Serum Alcohol <10 mg/dL Influenza Type A (PCR) (Not Detectd) Influenza Type B (PCR) (Not Detectd) RSV (PCR) (Not Detectd) SARS-CoV-2 (PCR) (Not Detectd) 01/10/24 Range/Units 14:00 WBC (3.8-10.6) k/uL RBC (3.80-5.40) m/uL Hgb (11.4-16.0) gm/dL Hct (34.0-46.0) % MCV (80.0-100.0) fL MCH (25.0-35.0) pg MCHC (31.0-37.0) g/dL RDW (11.5-15.5) % Plt Count (150-450) k/uL MPV Neutrophils % % Lymphocytes % % Monocytes % % Eosinophils % % Basophils % % Neutrophils # (1.3-7.7) k/uL Lymphocytes # (1.0-4.8) k/uL Monocytes # (0-1.0) k/uL Eosinophils # (0-0.7) k/uL Basophils # (0-0.2) k/uL Manual Slide Review Hypochromasia Anisocytosis Macrocytosis PT (10.0-12.5) sec INR (<1.2) APTT (22.0-30.0) sec Sodium (137-145) mmol/L Potassium (3.5-5.1) mmol/L Chloride (98-107) mmol/L Carbon Dioxide (22-30) mmol/L Anion Gap mmol/L BUN (7-17) mg/dL Creatinine (0.52-1.04) mg/dL Est GFR (CKD-EPI)AfAm (>60 ml/min/1.73 sqM) Est GFR (CKD-EPI)NonAf (>60 ml/min/1.73 sqM) Glucose (74-99) mg/dL Calcium (8.4-10.2) mg/dL Magnesium (1.6-2.3) mg/dL Total Bilirubin (0.2-1.3) mg/dL AST (14-36) U/L ALT (4-34) U/L Alkaline Phosphatase (38-126) U/L Ammonia (<30) umol/L Creatine Kinase (30-135) U/L Troponin I (0.000-0.034) ng/mL NT-Pro-B Natriuret Pep pg/mL Total Protein (6.3-8.2) g/dL Albumin (3.5-5.0) g/dL Lipase (23-300) U/L TSH (0.465-4.680) mIU/L Urine Color Urine Appearance (Clear) Urine pH (5.0-8.0) Ur Specific [place] (1.001-1.035) Urine Protein (Negative) Urine Glucose (UA) (Negative) Urine Ketones (Negative) Urine Blood (Negative) Urine Nitrite (Negative) Urine Bilirubin (Negative) Urine Urobilinogen (<2.0) mg/dL Ur Leukocyte Esterase (Negative) Urine Opiates Screen (NotDetected) Ur Oxycodone Screen (NotDetected) Urine Methadone Screen (NotDetected) Ur Barbiturates Screen (NotDetected) U Tricyclic Antidepress (NotDetected) Ur Phencyclidine Scrn (NotDetected) Ur Amphetamines Screen (NotDetected) U Methamphetamines Scrn (NotDetected) U Benzodiazepines Scrn (NotDetected) Urine Cocaine Screen (NotDetected) U Marijuana (THC) Screen (NotDetected) Serum Alcohol mg/dL Influenza Type A (PCR) Not Detected (Not Detectd) Influenza Type B (PCR) Not Detected (Not Detectd) RSV (PCR) Not Detected (Not Detectd) SARS-CoV-2 (PCR) Not Detected (Not Detectd) Disposition Clinical Impression: Altered mental status, Delirium due to general medical condition, Hyperammonemia, Dehydration Disposition: ADMITTED IP TO THIS [facility] Condition: Fair Referrals: None,Stated [Primary Care Provider] - 1-2 days Time of Disposition: 18:30 Decision Date: 01/10/24 Decision Time: 18:30
[2024-01-10] MEDS: SODIUM CHLORIDE 0.9% 1,000 ML IV ONE (14:13)
[2024-01-10] MEDS: diphenhydrAMINE 50 MG/ML 1 ML VIAL IVP STA ×2 (14:13→17:01)
[2024-01-10 14:33] LABS: Anisocytosis Slight; Basophils % (A) 1 %; Eosinophils # (A) 0.1 k/uL (0-0.7); Eosinophils % (A) 6 %; HGB 9.8 gm/dL (11.4-16.0); Hypochromasia Moderate; Lymphocytes # (A) 0.4 k/uL (1.0-4.8); Lymphocytes % (A) 21 %; MCH 30.4 pg (25.0-35.0); MCHC 29.7 g/dL (31.0-37.0); MCV 102.3 fL (80.0-100.0); Macrocytosis Moderate; Mean Platelet Volume 9.4; Monocytes # (A) 0.3 k/uL (0-1.0); Monocytes % (A) 12 %; Neutrophils # (A) 1.2 k/uL (1.3-7.7); Neutrophils % (A) 57 %; RBC 3.23 m/uL (3.80-5.40); RDW 16.7 % (11.5-15.5)
[2024-01-10 14:39] LABS: ALT 48 U/L (4-34); AST 67 U/L (14-36); African American GFR (CKD) >90 (>60 ml/min/1.73 sqM); Albumin 2.8 g/dL (3.5-5.0); Alcohol <10 mg/dL; Alkaline Phosphatase 124 U/L (38-126); Anion Gap -1 mmol/L; Blood Urea Nitrogen 15 mg/dL (7-17); Carbon Dioxide 37 mmol/L (22-30); Chloride 103 mmol/L (98-107); Creatine Kinase 49 U/L (30-135); Glucose 103 mg/dL (74-99); Lipase 67 U/L (23-300); Magnesium 1.9 mg/dL (1.6-2.3); Non-African American GFR(CKD) >90 (>60 ml/min/1.73 sqM); Sodium 139 mmol/L (137-145); Total Bilirubin 1.5 mg/dL (0.2-1.3); Total Protein 6.1 g/dL (6.3-8.2)
--- NOTE | 2024-01-10 14:44 | XR ---
EXAMINATION TYPE: XR chest 2V DATE OF EXAM: 01/10/2024 2:37 PM CLINICAL INDICATION:Female, 59 years old with history of altered mental status; COMPARISON: Chest radiographs from 01/04/2024. TECHNIQUE: XR chest 2V Frontal view of the chest. FINDINGS: Lungs/Pleura: There is no evidence of pleural effusion, focal consolidation, or pneumothorax. Pulmonary vascularity: Unremarkable. Heart/mediastinum: Cardiomediastinal silhouette is unremarkable. Musculoskeletal: No acute osseous pathology. There is fixation hardware in the lower cervical spine. Left fixation hardware in the humerus. Deformity to the left humerus surgical neck/humeral head. Other findings: None IMPRESSION: Similar appearance of the lung. No definitive airspace disease.
[2024-01-10 14:47] LABS: NT-Pro-B-Type Natriuretic Pept 244 pg/mL
[2024-01-10 14:57] LABS: Platelet Count 62 k/uL (150-450)
[2024-01-10] MEDS: IPRATROPIUM-ALBUTEROL 3 ML NEB INHALATION STA (15:18)
[2024-01-10 15:54] LABS: Appearance,Urine Clear (Clear); Bilirubin,Urine Negative (Negative); Blood,Urine Negative (Negative); Color,Urine Colorless; Glucose,Urine (UA) Negative (Negative); Ketones,Urine Negative (Negative); Leukocyte Esterase,Urine Negative (Negative); Nitrite,Urine Negative (Negative); Protein,Urine Negative (Negative); Specific Gravity,Urine 1.005 (1.001-1.035); Urobilinogen,Urine <2.0 mg/dL (<2.0)
--- NOTE | 2024-01-10 15:55 | CT ---
EXAMINATION TYPE: CT brain wo con CT DLP: 1145.4 mGycm, Automated exposure control for dose reduction was used. DATE OF EXAM: 01/10/2024 3:17 PM COMPARISON: None. CLINICAL INDICATION:Female, 59 years old with history of Altered mental status, AMS TECHNIQUE: Brain: Axial CT images of the brain were obtained with coronal and sagittal reformats created and rev iewed. Contrast used: None. Oral contrast used: None. FINDINGS: Brain: Extra-axial spaces: No abnormal extra-axial fluid collections. Ventricular system: Within normal limits Cerebral parenchyma: No acute intraparenchymal hemorrhage or mass effect. The [place]-white junction is well differentiated. Cerebellum: Unremarkable. Mass effect: No evidence of midline shift. Intracranial vasculature: Atherosclerotic calcifications of the intracranial vessels. Soft tissues: Normal. Calvarium/osseous structures: No depressed skull fracture. Postsurgical changes to the right scalp. Paranasal sinuses and mastoid air cells: Mild scattered paranasal sinus disease. Visualized orbits: Orbital contents are intact. IMPRESSION: No acute intracranial process.
[2024-01-10 16:06] LABS: INR 1.4 (<1.2); Partial Thromboplastin Time 31.4 sec (22.0-30.0); Prothrombin Time 14.8 sec (10.0-12.5)
[2024-01-10 16:07] LABS: Amphetamine Screen,Urine Not Detected (NotDetected); Barbiturate Screen,Urine Not Detected (NotDetected); Benzodiazepines Screen,Urine Not Detected (NotDetected); Cocaine Screen,Urine Not Detected (NotDetected); Methadone Screen, Urine Detected (NotDetected); Opiate Screen,Urine Not Detected (NotDetected); Oxycodone Screen, Urine Not Detected (NotDetected); Phencyclidine Screen,Urine Not Detected (NotDetected); Tricyclic Antidepressant,Urine Not Detected (NotDetected); Urn Cannabinoid Scrn Not Detected (NotDetected)
[2024-01-10] MEDS ORDERED: NALOXONE 0.4 MG/ML 1 ML VIAL IV PRN (20:15)
[2024-01-10] MEDS ORDERED: LOPERAMIDE 2 MG CAP PO PRN (20:19)
[2024-01-10] MEDS ORDERED: GABAPENTIN 300 MG CAP PO PRN (20:19)
[2024-01-10] MEDS ORDERED: IBUPROFEN 600 MG TAB PO PRN (20:19)
[2024-01-10] MEDS ORDERED: diphenhydrAMINE 25 MG CAP PO PRN (20:19)
[2024-01-10] MEDS ORDERED: ONDANSETRON 4 MG TAB PO PRN (20:19)
[2024-01-10] MEDS ORDERED: ALBUTEROL NEBULIZED 2.5 MG/3 ML INHALATION PRN (20:19)
[2024-01-10] MEDS ORDERED: NON FORMULARY DRUG (Calcium Phos/D3/Magnesium/Zinc [Calcium-Mag-Zinc-Vitamin D3] 1 EACH Ta PO PRN (20:19)
[2024-01-10] MEDS ORDERED: CALCIUM CARBONATE 500 MG CHEWABLE PO PRN (20:19)
[2024-01-10] MEDS: SODIUM CHLORIDE 0.9% 1,000 ML IV SCH (21:09)
[2024-01-10] MEDS: MELATONIN 5 MG TABLET PO SCH (21:10)
[2024-01-10] MEDS: traZODone HCL 50 MG TAB PO SCH (21:10)
[2024-01-10] MEDS: LACTULOSE 20 GM/30 ML CUP PO ONE (23:04)
--- NOTE | 2024-01-11 01:44 | P.HPIM ---
History of Present Illness H&P Date: 01/10/24 Patient is a 59-year-old female with a PMH of cirrhosis secondary to hepatitis C, COPD, and polysubstance abuse who was sent in from [place] for altered mental status and generalized weakness. The patient notes that she has been at [facility] for the past several days due to her substance use including cocaine and methadone. She does report abdominal bloating but had no additional complaints. Denied experiencing abdominal discomfort, nausea, vomiting, fever, chills, cough, diarrhea. Reports that she last used any substances several weeks ago. CT brain was unremarkable with chest x-ray also unremarkable and EKG showing sinus rhythm at [address]/T wave changes noted as reviewed by me. Laboratory evaluation revealed ammonia of 67, T. bili 1.5, AST 67, ALT 48, troponin less than 0.012, pancytopenia with WBC count 2.0, hemoglobin 9.8, and platelet count 62 (all at baseline), CO2 37,, with urine toxicology positive for methadone. ED documentation reviewed and case discussed with ED provider. Review of systems: Pertinent positives and negatives as discussed in HPI, a complete review of systems was performed and all other systems are negative. Physical examination: Vital signs reviewed General: non toxic, no distress, appears older than stated age, normal weight Derm: no unusual rashes/lesions, warm Head: atraumatic, normocephalic, symmetric Eyes: EOMI, no lid lag, anicteric sclera, pupils equal round reactive to light ENT: Nose and ears atraumatic Neck: No cervical lymphadenopathy, trachea midline, supple Mouth: no lip lesion, mucus membranes moist Cardiovascular: S1S2 reg, no murmur, positive dorsalis pedis pulse bilateral, no edema Lungs: CTA bilateral, no rhonchi, no rales, no accessory muscle use Abdominal: Mildly distended, nontender to palpation, no guarding Ext: muscle strength 5 out of 5 in all 4 extremities grossly, no gross muscle atrophy, no contractures, no asterixis noted on examination Neuro: CN II-XI grossly intact, no gross focal neuro deficits Psych: Alert, oriented, appropriate affect Assessment: Altered mental status and generalized weakness, possibly secondary to hepatic encephalopathy, now improved Abnormal LFTs in setting of cirrhosis secondary to chronic hep C, at baseline Pancytopenia, at baseline Alkalosis, suspect due to underlying COPD with chronic hypercapnia Chronic conditions: COPD, Polysusbtance abuse Imaging: CT brain was unremarkable with chest x-ray also unremarkable and EKG showing sinus rhythm at [address]/T wave changes noted as reviewed by me. Data Review: Laboratory evaluation revealed ammonia of 67, T. bili 1.5, AST 67, ALT 48, troponin less than 0.012, pancytopenia with WBC count 2.0, hemoglobin 9.8, and platelet count 62 (all at baseline), CO2 37,, with urine toxicology positive for methadone. Plan: Start patient on lactulose 20 mg QID, titrate to 2-3 soft bowel movements daily Monitor ammonia levels GI consulted Continue with neurochecks every 4 hours Resume home medications including Symbicort, Celexa, Lasix, gabapentin, melatonin, methadone, Aldactone, trazodone DVT prophylaxis: Lovenox subcu The patient is admitted with an anticipated greater than 2 midnight stay for evaluation of altered mental status CODE STATUS: Full Code Discussed with: Patient Anticipated discharge place: Home Past Medical History Past Medical History: Heart Failure, COPD, Hypertension, Liver Disease Additional Past Medical History / Comment(s): hep c History of Any Multi-Drug Resistant Organisms: MRSA Date of last positivie culture/infection: 1999 MDRO Source:: skull Past Surgical History: Orthopedic Surgery Additional Past Surgical History / Comment(s): C1C2 fusion. Fusion thoracic spine. Brain bleed sx Past Psychological History: PTSD Smoking Status: Current every day smoker Past Alcohol Use History: Occasional Past Drug Use History: Cocaine, Opiates, Prescription Drug Abuse Medications and Allergies Home Medications Medication Instructions Recorded Confirmed Type Albuterol Sulfate [Ventolin HFA] 1 - 2 puff INHALATION RT-QID PRN 01/05/24 01/10/24 History Budesonide/Formoterol Fumarate 2 puff INHALATION RT-BID 01/05/24 01/10/24 History [Symbicort 80-4.5 Mcg Inhaler] Calcium Carbonate [Tums] 1,000 mg PO Q4H PRN 01/05/24 01/10/24 History Calcium Phos/D3/Magnesium/Zinc 1 tab PO TID PRN 01/05/24 01/10/24 History [Sykpurc-Udm-Cswz-Vitamin D3] Citalopram Hydrobromide [CeleXA] 40 mg PO DAILY 01/05/24 01/10/24 History Furosemide [Lasix] 40 mg PO DAILY 01/05/24 01/10/24 History Gabapentin 600 mg PO TID PRN 01/05/24 01/10/24 History Ibuprofen [Motrin Ib] 600 mg PO Q6H PRN 01/05/24 01/10/24 History Loperamide HCl [Imodium A-D] 4 mg PO QID PRN MDD 16 MG 01/05/24 01/10/24 History Melatonin 10 mg PO HS 01/05/24 01/10/24 History Methadone HCl [Methadone Intensol] 55 mg PO DAILY 01/05/24 01/10/24 History Multivitamins, Thera [Multivitamin 1 tab PO DAILY 01/05/24 01/10/24 History (formulary)] Thiamine [Vitamin B-1] 100 mg PO DAILY 01/05/24 01/10/24 History Zofran 2ml(4mg) 4 mg IM Q6H PRN 01/05/24 01/10/24 History ondansetron HCL [Zofran] 8 mg PO Q6H PRN 01/05/24 01/10/24 History traZODone HCL [Desyrel] 50 mg PO HS 01/05/24 01/10/24 History Spironolactone [Aldactone] 25 mg PO DAILY #30 tab 01/06/24 01/10/24 Rx Chlorpheniramine Maleate 4 mg PO Q4H PRN 01/10/24 01/10/24 History [Chlor-Trimeton] Mylanta Regular Strength 30 ml PO Q4H PRN 01/10/24 01/10/24 History Allergies Allergy/AdvReac Type Severity Reaction Status Date / Time tetracycline Allergy Rash/Hives Verified 01/10/24 16:31 Physical Exam Vitals: Vital Signs Temp Pulse Resp BP Pulse Ox 01/10/24 20:56 80 18 138/94 94 L 01/10/24 18:00 98.1 F 20 122/82 93 L 01/10/24 17:00 20 121/75 93 L 01/10/24 15:26 70 16 01/10/24 15:18 70 18 01/10/24 14:04 73 18 109/68 95 01/10/24 13:39 72 18 111/76 94 L 01/10/24 13:05 98.1 F 78 16 100/60 94 L Intake and Output 01/10/24 01/10/24 01/10/24 06:59 14:59 22:59 Other: Weight 61.235 kg Results CBC & Chem 7: 01/10/24 14:00 01/10/24 14:00 Labs: Abnormal Lab Results - Last 24 Hours (Table) 01/10/24 01/10/24 01/10/24 Range/Units 14:00 14:00 14:00 WBC 2.0 L (3.8-10.6) k/uL RBC 3.23 L (3.80-5.40) m/uL Hgb 9.8 L (11.4-16.0) gm/dL Hct 33.0 L (34.0-46.0) % MCV 102.3 H (80.0-100.0) fL MCHC 29.7 L (31.0-37.0) g/dL RDW 16.7 H (11.5-15.5) % Plt Count 62 L (150-450) k/uL Neutrophils # 1.2 L (1.3-7.7) k/uL Lymphocytes # 0.4 L (1.0-4.8) k/uL PT 14.8 H (10.0-12.5) sec INR 1.4 H (<1.2) APTT 31.4 H (22.0-30.0) sec Carbon Dioxide (22-30) mmol/L Glucose (74-99) mg/dL Calcium (8.4-10.2) mg/dL Total Bilirubin (0.2-1.3) mg/dL AST (14-36) U/L ALT (4-34) U/L Ammonia (<30) umol/L Total Protein (6.3-8.2) g/dL Albumin (3.5-5.0) g/dL Urine Methadone Screen Detected H (NotDetected) 01/10/24 01/10/24 Range/Units 14:00 14:00 WBC (3.8-10.6) k/uL RBC (3.80-5.40) m/uL Hgb (11.4-16.0) gm/dL Hct (34.0-46.0) % MCV (80.0-100.0) fL MCHC (31.0-37.0) g/dL RDW (11.5-15.5) % Plt Count (150-450) k/uL Neutrophils # (1.3-7.7) k/uL Lymphocytes # (1.0-4.8) k/uL PT (10.0-12.5) sec INR (<1.2) APTT (22.0-30.0) sec Carbon Dioxide 37 H (22-30) mmol/L Glucose 103 H (74-99) mg/dL Calcium 8.0 L (8.4-10.2) mg/dL Total Bilirubin 1.5 H (0.2-1.3) mg/dL AST 67 H (14-36) U/L ALT 48 H (4-34) U/L Ammonia 57 H (<30) umol/L Total Protein 6.1 L (6.3-8.2) g/dL Albumin 2.8 L (3.5-5.0) g/dL Urine Methadone Screen (NotDetected)
[2024-01-11 07:06] LABS: Anisocytosis Slight; HCT 32.2 % (34.0-46.0); HGB 10.2 gm/dL (11.4-16.0); Hypochromasia Marked; MCH 33.1 pg (25.0-35.0); MCHC 31.7 g/dL (31.0-37.0); MCV 104.4 fL (80.0-100.0); Macrocytosis Moderate; RBC 3.08 m/uL (3.80-5.40); RDW 16.8 % (11.5-15.5)
[2024-01-11 07:20] LABS: Platelet Count 43 k/uL (150-450)
[2024-01-11 07:21] LABS: ALT 49 U/L (4-34); AST 66 U/L (14-36); African American GFR (CKD) >90 (>60 ml/min/1.73 sqM); Albumin 2.7 g/dL (3.5-5.0); Albumin/Globulin Ratio 0.8; Alkaline Phosphatase 115 U/L (38-126); Anion Gap -2 mmol/L; Blood Urea Nitrogen 13 mg/dL (7-17); Calcium 8.1 mg/dL (8.4-10.2); Carbon Dioxide 38 mmol/L (22-30); Chloride 104 mmol/L (98-107); Globulin 3.4 g/dL; Glucose 102 mg/dL (74-99); Non-African American GFR(CKD) >90 (>60 ml/min/1.73 sqM); Potassium 3.9 mmol/L (3.5-5.1); Sodium 140 mmol/L (137-145); Total Bilirubin 1.5 mg/dL (0.2-1.3); Total Protein 6.1 g/dL (6.3-8.2)
[2024-01-11] MEDS: SYMBICORT 80-4.5 MCG INHALER INHALATION SCH (08:08)
[2024-01-11] MEDS: ENOXAPARIN 40 MG/0.4 ML SYRINGE SQ SCH (10:31)
[2024-01-11] MEDS: LACTULOSE 20 GM/30 ML CUP PO SCH (10:31)
[2024-01-11] MEDS: MAG HYDROX/AL HYDROX/SIMETH 30 ML CUP PO PRN (10:31)
[2024-01-11] MEDS: THIAMINE 100 MG TAB PO SCH (10:32)
[2024-01-11] MEDS: MULTIVITAMINS, THERA 1 EACH TAB PO SCH (10:32)
[2024-01-11] MEDS: METHADONE 5 MG TAB PO SCH (10:32)
[2024-01-11] MEDS: FUROSEMIDE 40 MG TAB PO SCH (10:32)
[2024-01-11] MEDS: SPIRONOLACTONE 25 MG TAB PO SCH (10:32)
[2024-01-11] MEDS: METHADONE 10 MG TAB PO SCH (10:33)
[2024-01-11] MEDS: CITALOPRAM HYDROBROMIDE 20 MG TAB PO SCH (10:46)
--- NOTE | 2024-01-11 11:24 | P.PN ---
Subjective Progress Note Date: 01/11/24 Subjective: Patient seen at bedside. No significant overnight events. Patient reports she is feeling less confused and has decreased weakness compared to when she arrived. Pertinent positives and negatives discussed above, a complete review of systems was preformed and all the other sytems were negative. Vitals Signs Reveiwed. General: non toxic, no distress, appears older than stated age, normal weight Derm: no unusual rashes/lesions, warm Head: atraumatic, normocephalic, symmetric Eyes: EOMI, no lid lag, anicteric sclera, pupils equal round reactive to light ENT: Nose and ears atraumatic Neck: No cervical lymphadenopathy, trachea midline, supple Mouth: no lip lesion, mucus membranes moist Cardiovascular: S1S2 reg, no murmur, positive dorsalis pedis pulse bilateral, no edema Lungs: CTA bilateral, no rhonchi, no rales, no accessory muscle use Abdominal: Mildly distended, nontender to palpation, no guarding Ext: muscle strength 5 out of 5 in all 4 extremities grossly, no gross muscle atrophy, no contractures, no asterixis noted on examination Neuro: CN II-XI grossly intact, no gross focal neuro deficits Psych: Alert, oriented, appropriate affect Data Reveiwed Today: Patient Labs: Sodium 140, potassium 3.9, chloride 104, bicarb 38, glucose 102, calcium 8.1, total bili 1.5, AST 66, ALT 49, ammonia 52, WBC 2, hemoglobin 10.2, MCV 104.4, and platelet count 43. Imaging: No new imaging Assessment: 59-year-old female with a past medical history of cirrhosis secondary to hepatitis C, COPD, and polysubstance abuse presents from [facility] for altered mental status and generalized weakness. Patient is being worked up and treated for altered mental status likely secondary to hepatic encephalopathy. Plan: Altered mental status and generalized weakness, possibly secondary to hepatic encephalopathy, now improved: Continue lactulose 20 mg QID, titrate to 2-3 soft bowel movements daily Ammonia levels decreased from 57 on admission to now 52, lactulose is working Per GI, will continue lactulose and titrate to have 3-4 bowel movements daily. They also recommend increasing lactulose to 30 g 3 times daily on discharge. They also recommended discontinuing Imodium. Abdominal ultrasound ordered to evaluate for ascites Continue with neurochecks every 4 hours Transaminitis: Abnormal LFTs in setting of cirrhosis secondary to chronic hep C, at baseline Pancytopenia: Currently at baseline Continue to monitor Alkalosis, suspect due to underlying COPD with chronic hypercapnia Chronic conditions: COPD, Polysusbtance abuse Resume home medications including Symbicort, Celexa, Lasix, gabapentin, melatonin, methadone, Aldactone, trazodone F none E thiamine 100 mg p.o. daily DVT ppx: Lovenox 40 SQ Code Status: Full code Anticipated discharge place: Likely back to [facility] Anticipated discharge time: Pending clinical course I have seen and evaluated the patient today. Discussed with the resident and agree with the residents subjective and objective as documented in the resident's note. The assessment and plan was discussed and outlined as below. Patient no longer confused. She is somewhat lethargic but she is also on Benadryl, Methadone and Gabapentin. Acute metabolic encephalopathy due to hyperammonemia: Lactulose 30 g PO TID. Discontinue Immodium. Repeat Ammonia levels tomorrow. Stop Benadryl and Gabapentin. GI on board. Ascites related to decompensated cirrhosis from Hep C: Lasix 40 mg PO QD. Aldactone 25 mg PO QD. Lactulose as above. Outpatient GI followup to initiate treatment for Hep C. Abd US ordered to evaluate for ascites. Pancytopenia and Supratherapeutic INR due to cirrhosis Metabolic alkalosis: Likely due to initiation of Lasix. Anticipate discharge tomorrow if ammonia levels continue to trend down. Objective - Vital Signs Vital signs: Vital Signs Temp 98.1 F 01/10/24 18:00 Pulse 69 01/11/24 07:11 Resp 16 01/11/24 07:11 BP 127/84 01/11/24 07:11 Pulse Ox 100 01/11/24 07:11 FiO2 Intake & Output 01/10/24 01/11/24 01/11/24 18:59 06:59 18:59 Weight 61.235 kg - Labs CBC & Chem 7: 01/11/24 06:49 01/11/24 06:49 Labs: Abnormal Lab Results - Last 24 Hours (Table) 01/10/24 01/10/24 01/10/24 Range/Units 14:00 14:00 14:00 WBC 2.0 L (3.8-10.6) k/uL RBC 3.23 L (3.80-5.40) m/uL Hgb 9.8 L (11.4-16.0) gm/dL Hct 33.0 L (34.0-46.0) % MCV 102.3 H (80.0-100.0) fL MCHC 29.7 L (31.0-37.0) g/dL RDW 16.7 H (11.5-15.5) % Plt Count 62 L (150-450) k/uL Neutrophils # 1.2 L (1.3-7.7) k/uL Lymphocytes # 0.4 L (1.0-4.8) k/uL PT 14.8 H (10.0-12.5) sec INR 1.4 H (<1.2) APTT 31.4 H (22.0-30.0) sec Carbon Dioxide (22-30) mmol/L Glucose (74-99) mg/dL Calcium (8.4-10.2) mg/dL Total Bilirubin (0.2-1.3) mg/dL AST (14-36) U/L ALT (4-34) U/L Ammonia (<30) umol/L Total Protein (6.3-8.2) g/dL Albumin (3.5-5.0) g/dL Urine Methadone Screen Detected H (NotDetected) 01/10/24 01/10/24 01/11/24 Range/Units 14:00 14:00 06:49 WBC 2.0 L (3.8-10.6) k/uL RBC 3.08 L (3.80-5.40) m/uL Hgb 10.2 L (11.4-16.0) gm/dL Hct 32.2 L (34.0-46.0) % MCV 104.4 H (80.0-100.0) fL MCHC (31.0-37.0) g/dL RDW 16.8 H (11.5-15.5) % Plt Count 43 L (150-450) k/uL Neutrophils # (1.3-7.7) k/uL Lymphocytes # (1.0-4.8) k/uL PT (10.0-12.5) sec INR (<1.2) APTT (22.0-30.0) sec Carbon Dioxide 37 H (22-30) mmol/L Glucose 103 H (74-99) mg/dL Calcium 8.0 L (8.4-10.2) mg/dL Total Bilirubin 1.5 H (0.2-1.3) mg/dL AST 67 H (14-36) U/L ALT 48 H (4-34) U/L Ammonia 57 H (<30) umol/L Total Protein 6.1 L (6.3-8.2) g/dL Albumin 2.8 L (3.5-5.0) g/dL Urine Methadone Screen (NotDetected) 01/11/24 01/11/24 Range/Units 06:49 06:49 WBC (3.8-10.6) k/uL RBC (3.80-5.40) m/uL Hgb (11.4-16.0) gm/dL Hct (34.0-46.0) % MCV (80.0-100.0) fL MCHC (31.0-37.0) g/dL RDW (11.5-15.5) % Plt Count (150-450) k/uL Neutrophils # (1.3-7.7) k/uL Lymphocytes # (1.0-4.8) k/uL PT (10.0-12.5) sec INR (<1.2) APTT (22.0-30.0) sec Carbon Dioxide 38 H (22-30) mmol/L Glucose 102 H (74-99) mg/dL Calcium 8.1 L (8.4-10.2) mg/dL Total Bilirubin 1.5 H (0.2-1.3) mg/dL AST 66 H (14-36) U/L ALT 49 H (4-34) U/L Ammonia 52 H (<30) umol/L Total Protein 6.1 L (6.3-8.2) g/dL Albumin 2.7 L (3.5-5.0) g/dL Urine Methadone Screen (NotDetected)
--- NOTE | 2024-01-11 12:45 | P.CONS ---
History of Present Illness - Reason for Consult Consult date: 01/11/24 elevated amminia levels Requesting physician: Sergio Macdonald - Chief Complaint Altered mental status changes - History of Present Illness This is a pleasant 59-year-old female who was sent into the emergency department from [facility] for concerns of altered mental status changes. According to the emergency department note patient was found to be lethargic and difficult to arouse so she was sent into the emergency department. She has a past medical history including cocaine and heroin abuse, nicotine dependence, hepatitis C, cirrhosis of the liver, COPD, and hypertension. Patient is currently alert and oriented x 3. She does seem somewhat drowsy. She had an elevated ammonia level on admission and was given lactulose 40 g x 1 dose and now on lactulose 20 g 4 times daily. Patient denies knowing history of cirrhosis, she is not answering all questions and not answering if she has been treated for hepatitis C and apparently looking at patient's history she was just admitted for abdominal distention and shortness of breath week ago. At that time she had a ultrasound of the liver that showed cirrhotic appearing liver with small amount of ascites. Will interventional radiology was consulted however there was not enough fluid for paracentesis. Patient states she has not had previous paracentesis. She is on Aldactone 25 mg daily as well as Lasix 40 mg daily. Labs are consistent with underlying liver disease. Patient denies any abdominal pain, nausea, or vomiting. Review of Systems REVIEW OF SYSTEMS: CARDIOPULMONARY: No chest pain or shortness of breath. Gastrointestinal: No abdominal pain. No nausea or vomiting. No hematemesis, coffee-ground emesis. No rectal bleeding, or melena. GENITOURINARY: No dysuria or hematuria. MUSCULOSKELETAL: Reports normal range of motion., Joint pain. SKIN: No rashes. No jaundice. ENDOCRINE: No chills, fevers. No excessive weight gain or loss. No polydipsia or polyuria. PSYCHIATRIC: Unremarkable. NEUROLOGY: Altered mental status changes, decreased arousal. Denies dizziness, headache. ENT: Vision unremarkable. CONSTITUTIONAL: No recent weight loss. No fever, chills, night sweats. Past Medical History Past Medical History: Heart Failure, COPD, Hypertension, Liver Disease Additional Past Medical History / Comment(s): hep c History of Any Multi-Drug Resistant Organisms: MRSA Year Discovered:: 1999 MDRO Source:: skull Past Surgical History: Orthopedic Surgery Additional Past Surgical History / Comment(s): C1C2 fusion. Fusion thoracic spine. Brain bleed sx Past Psychological History: PTSD Smoking Status: Current every day smoker Past Alcohol Use History: Occasional Past Drug Use History: Cocaine, Opiates, Prescription Drug Abuse Medications and Allergies Home Medications Medication Instructions Recorded Confirmed Type Albuterol Sulfate [Ventolin HFA] 1 - 2 puff INHALATION RT-QID PRN 01/05/24 01/10/24 History Budesonide/Formoterol Fumarate 2 puff INHALATION RT-BID 01/05/24 01/10/24 History [Symbicort 80-4.5 Mcg Inhaler] Calcium Carbonate [Tums] 1,000 mg PO Q4H PRN 01/05/24 01/10/24 History Calcium Phos/D3/Magnesium/Zinc 1 tab PO TID PRN 01/05/24 01/10/24 History [Padbced-Zmn-Rkyg-Vitamin D3] Citalopram Hydrobromide [CeleXA] 40 mg PO DAILY 01/05/24 01/10/24 History Furosemide [Lasix] 40 mg PO DAILY 01/05/24 01/10/24 History Gabapentin 600 mg PO TID PRN 01/05/24 01/10/24 History Ibuprofen [Motrin Ib] 600 mg PO Q6H PRN 01/05/24 01/10/24 History Loperamide HCl [Imodium A-D] 4 mg PO QID PRN MDD 16 MG 01/05/24 01/10/24 History Melatonin 10 mg PO HS 01/05/24 01/10/24 History Methadone HCl [Methadone Intensol] 55 mg PO DAILY 01/05/24 01/10/24 History Multivitamins, Thera [Multivitamin 1 tab PO DAILY 01/05/24 01/10/24 History (formulary)] Thiamine [Vitamin B-1] 100 mg PO DAILY 01/05/24 01/10/24 History Zofran 2ml(4mg) 4 mg IM Q6H PRN 01/05/24 01/10/24 History ondansetron HCL [Zofran] 8 mg PO Q6H PRN 01/05/24 01/10/24 History traZODone HCL [Desyrel] 50 mg PO HS 01/05/24 01/10/24 History Spironolactone [Aldactone] 25 mg PO DAILY #30 tab 01/06/24 01/10/24 Rx Chlorpheniramine Maleate 4 mg PO Q4H PRN 01/10/24 01/10/24 History [Chlor-Trimeton] Mylanta Regular Strength 30 ml PO Q4H PRN 01/10/24 01/10/24 History Allergies Allergy/AdvReac Type Severity Reaction Status Date / Time tetracycline Allergy Rash/Hives Verified 01/10/24 16:31 Physical Exam Vitals: Vital Signs Temp Pulse Resp BP Pulse Ox 01/11/24 08:10 98 01/11/24 07:11 69 16 127/84 100 01/11/24 07:00 70 18 127/84 100 01/11/24 06:00 81 18 134/96 97 01/11/24 04:00 71 18 131/85 95 01/11/24 02:00 79 18 140/86 97 01/11/24 00:00 74 18 141/88 97 01/10/24 22:00 72 18 134/88 97 01/10/24 20:56 80 18 138/94 94 L 01/10/24 18:00 98.1 F 20 122/82 93 L 01/10/24 17:00 20 121/75 93 L 01/10/24 15:26 70 16 01/10/24 15:18 70 18 01/10/24 14:04 73 18 109/68 95 01/10/24 13:39 72 18 111/76 94 L 01/10/24 13:05 98.1 F 78 16 100/60 94 L General appearance: The patient is alert, oriented, appears in no acute distress. HET: Head is normocephalic and atraumatic. Conjunctiva pink. Sclera anicteric. Neck: Supple without lymphadenopathy. Trachea midline. Heart: Regular. Lungs: Equal expansion, normal respiratory effort. Abdomen: Distended, tympanic, nontender. Skin: No rashes. No jaundice. Extremities: Normal skin color and turgor. No pedal edema. Neurological: No focal deficits. Alert and oriented x3. Results CBC & Chem 7: 01/11/24 06:49 01/11/24 06:49 Labs: Abnormal Lab Results - Last 24 Hours (Table) 01/10/24 01/10/24 01/10/24 Range/Units 14:00 14:00 14:00 WBC 2.0 L (3.8-10.6) k/uL RBC 3.23 L (3.80-5.40) m/uL Hgb 9.8 L (11.4-16.0) gm/dL Hct 33.0 L (34.0-46.0) % MCV 102.3 H (80.0-100.0) fL MCHC 29.7 L (31.0-37.0) g/dL RDW 16.7 H (11.5-15.5) % Plt Count 62 L (150-450) k/uL Neutrophils # 1.2 L (1.3-7.7) k/uL Lymphocytes # 0.4 L (1.0-4.8) k/uL PT 14.8 H (10.0-12.5) sec INR 1.4 H (<1.2) APTT 31.4 H (22.0-30.0) sec Carbon Dioxide (22-30) mmol/L Glucose (74-99) mg/dL Calcium (8.4-10.2) mg/dL Total Bilirubin (0.2-1.3) mg/dL AST (14-36) U/L ALT (4-34) U/L Ammonia (<30) umol/L Total Protein (6.3-8.2) g/dL Albumin (3.5-5.0) g/dL Urine Methadone Screen Detected H (NotDetected) 01/10/24 01/10/24 01/11/24 Range/Units 14:00 14:00 06:49 WBC 2.0 L (3.8-10.6) k/uL RBC 3.08 L (3.80-5.40) m/uL Hgb 10.2 L (11.4-16.0) gm/dL Hct 32.2 L (34.0-46.0) % MCV 104.4 H (80.0-100.0) fL MCHC (31.0-37.0) g/dL RDW 16.8 H (11.5-15.5) % Plt Count 43 L (150-450) k/uL Neutrophils # (1.3-7.7) k/uL Lymphocytes # (1.0-4.8) k/uL PT (10.0-12.5) sec INR (<1.2) APTT (22.0-30.0) sec Carbon Dioxide 37 H (22-30) mmol/L Glucose 103 H (74-99) mg/dL Calcium 8.0 L (8.4-10.2) mg/dL Total Bilirubin 1.5 H (0.2-1.3) mg/dL AST 67 H (14-36) U/L ALT 48 H (4-34) U/L Ammonia 57 H (<30) umol/L Total Protein 6.1 L (6.3-8.2) g/dL Albumin 2.8 L (3.5-5.0) g/dL Urine Methadone Screen (NotDetected) 01/11/24 01/11/24 Range/Units 06:49 06:49 WBC (3.8-10.6) k/uL RBC (3.80-5.40) m/uL Hgb (11.4-16.0) gm/dL Hct (34.0-46.0) % MCV (80.0-100.0) fL MCHC (31.0-37.0) g/dL RDW (11.5-15.5) % Plt Count (150-450) k/uL Neutrophils # (1.3-7.7) k/uL Lymphocytes # (1.0-4.8) k/uL PT (10.0-12.5) sec INR (<1.2) APTT (22.0-30.0) sec Carbon Dioxide 38 H (22-30) mmol/L Glucose 102 H (74-99) mg/dL Calcium 8.1 L (8.4-10.2) mg/dL Total Bilirubin 1.5 H (0.2-1.3) mg/dL AST 66 H (14-36) U/L ALT 49 H (4-34) U/L Ammonia 52 H (<30) umol/L Total Protein 6.1 L (6.3-8.2) g/dL Albumin 2.7 L (3.5-5.0) g/dL Urine Methadone Screen (NotDetected) Comments: Brain CT reports no acute intracranial process Assessment and Plan (1) Hepatic encephalopathy Narrative/Plan: 59-year-old female presenting with altered mental status changes from rehab with known history of hepatitis C secondary to heroin IV use. Patient came in with elevated ammonia level at 57 secondary to liver cirrhosis from hepatitis C. Was started on lactulose with mild improvement to 52 however patient's mental status is improved. Patient is poor historian unclear if chronic hepatitis as he is untreated which is likely as patient still active heroin user up until 3 weeks ago. Will obtain hepatitis RNA and genotype. Continue with lactulose, patient will need to follow-up with outside machinist apprentice on discharge for continued surveillance of liver cirrhosis. Current Visit: Yes Status: Acute Code(s): K76.82 - HEPATIC ENCEPHALOPATHY SNOMED Code(s): 08552200 (2) Cirrhosis Current Visit: No Status: Acute Code(s): K74.60 - UNSPECIFIED CIRRHOSIS OF LIVER SNOMED Code(s): 54284271 (3) Hepatitis C Current Visit: Yes Status: Acute Code(s): B19.20 - UNSPECIFIED VIRAL HEPATITIS C WITHOUT HEPATIC COMA SNOMED Code(s): 13472213 (4) Heroin abuse Current Visit: Yes Status: Acute Code(s): F11.10 - OPIOID ABUSE, UNCOMPLICATED SNOMED Code(s): 9140186 (5) Cocaine abuse Current Visit: Yes Status: Acute Code(s): F14.10 - COCAINE ABUSE, UNCOMPLICATED SNOMED Code(s): 12671766 (6) Altered mental status Current Visit: Yes Status: Acute Code(s): R41.82 - ALTERED MENTAL STATUS, UNSPECIFIED SNOMED Code(s): 370015639 Plan: 1. Continue symptomatic and supportive care 2. Continue lactulose, titrate to have 3-4 bowel movements daily. Recommend lactulose 30 g 3 times daily on discharge with titrate to 2-4 bowel movements daily 3. Continue diuretics as ordered 4. Discontinue Imodium 5. Hepatitis C RNA and genotype ordered 6. Abdominal ultrasound ordered to evaluate for ascites 7. Discussed with patient importance to continue with refraining from heroin IV drug use 8. Patient will need follow-up with outside machinist apprentice to manage hepatitis C and for liver surveillance. Patient lives in [place] Thank you for this consultation, we will continue to follow. Dr. Paulina Rodríguez I agree with the dictator's note, documented as a scribe by Sherry Day
--- NOTE | 2024-01-11 16:10 | US ---
EXAMINATION TYPE: US abdomen limited DATE OF EXAM: 01/11/2024 COMPARISON: NONE CLINICAL INDICATION: Female, 59 years old with history of evaluate for ascites; eval for ascites Technique: Grayscale imaging of the abdomen for ascites. Findings: Anechoic fluid throughout 4 quadrants Mild ascites seen in all 4 quadrants. Incidental: spleen is measuring 19.7cm IMPRESSION: 1. Small ascites. 2. Splenomegaly.
[2024-01-11 20:12] LABS: Hepatitis A Antibody IgM Nonreactive (Nonreactive); Hepatitis B Core IgM Nonreactive (Nonreactive); Hepatitis B Surface Antigen Nonreactive (Nonreactive); Hepatitis C IgG Antibody Reactive (Nonreactive)
[2024-01-12 03:10] VITALS: RESP 16
[2024-01-12 07:59] LABS: ALT 43 U/L (4-34); AST 64 U/L (14-36); African American GFR (CKD) >90 (>60 ml/min/1.73 sqM); Albumin 2.4 g/dL (3.5-5.0); Albumin/Globulin Ratio 0.8; Alkaline Phosphatase 115 U/L (38-126); Anion Gap -1 mmol/L; Blood Urea Nitrogen 11 mg/dL (7-17); Carbon Dioxide 32 mmol/L (22-30); Chloride 107 mmol/L (98-107); Globulin 3.1 g/dL; Glucose 73 mg/dL (74-99); Non-African American GFR(CKD) >90 (>60 ml/min/1.73 sqM); Potassium 3.7 mmol/L (3.5-5.1); Sodium 138 mmol/L (137-145); Total Protein 5.5 g/dL (6.3-8.2)
[2024-01-12 08:01] LABS: Anisocytosis Slight; HCT 30.6 % (34.0-46.0); HGB 9.9 gm/dL (11.4-16.0); Hypochromasia Moderate; MCH 32.5 pg (25.0-35.0); MCHC 32.3 g/dL (31.0-37.0); MCV 100.5 fL (80.0-100.0); Macrocytosis Slight; Mean Platelet Volume 8.5; RBC 3.05 m/uL (3.80-5.40); RDW 16.4 % (11.5-15.5)
[2024-01-12 08:06] LABS: WBC 1.4 k/uL (3.8-10.6)
[2024-01-12 09:05] LABS: Platelet Count 58 k/uL (150-450)
[2024-01-12] MEDS: LACTULOSE 20 GM/30 ML CUP PO SCH (09:13)
[2024-01-12 09:20] LABS: Eosinophils # (M) 0.14 k/uL (0-0.7); Lymphocytes # (M) 0.43 k/uL (1.0-4.8); Metamyelocytes # (M) 0.04 k/uL (0); Metamyelocytes % 3 %; Monocytes # (M) 0.07 k/uL (0-1.0); Myelocytes # (M) 0.01 k/uL (0); Myelocytes % 1 %; Neutrophils # (M) 0.73 k/uL (1.3-7.7); Neutrophils % (M) 52 %; Nucleated Red Blood Cells 0 /100 WBC (0-0); Total Cells Counted 200
[2024-01-12 09:22] LABS: Ovalocytes Present; Poikilocytosis (M) Present
--- NOTE | 2024-01-12 11:42 | P.DS ---
Providers Date of admission: 01/10/24 20:15 Discharge Diagnosis: Acute metabolic encephalopathy due to hyperammonia Ascites related to decompensated cirrhosis from hep C Pancytopenia and supra therapeutic INR due to cirrhosis Metabolic alkalosis Hospital Course: 59-year-old female with a PMH of cirrhosis secondary to hepatitis C, COPD, and polysubstance abuse who was sent in from [facility] for altered mental status and generalized weakness. The patient notes that she has been at [facility] for the past several days due to her substance use including cocaine and methadone. She does report abdominal bloating but had no additional complaints. Denied experiencing abdominal discomfort, nausea, vomiting, fever, chills, cough, diarrhea. Reports that she last used any substances several weeks ago. In the ED patient's vitals were significant for temperature 98.1, heart rate 78, respiratory rate 16, blood pressure 100/60, and 94 L O2 saturation on room air. In the ED patient's labs were significant for sodium 139, potassium 4, BUN 15, creatinine 0.68, glucose 103, calcium 8, total bilirubin 1.5, AST 67, ALT 48, ammonia 57, troponins less than 0.012, BNP 244, creatinine kinase 49, lipase 67, WBC 2, hemoglobin 9.8, MCV 102.3, PT 14.8, INR 1.4, and APTT 31.4. Imaging in the ED included a chest x-ray which showed similar appearance of the lung. No definitive airspace disease. Patient also received a brain CT in the ED which showed no acute intracranial process. Patient also received an EKG in the ED which showed normal sinus rhythm with a ventricular rate of 71 bpm, MS interval 154, and QTc 452 not prolonged. At this point patient was admitted for further workup and treatment of her altered mental status and generalized weakness. While admitted, patient was started on lactulose 30 g p.o. 3 times daily with titration for 2-3 stools a day. This led to a significant improvement in the patient's altered mental status in congruence with a decrease in her ammonia level from 57 on arrival to 38. Patient also received an abdominal ultrasound which showed a small amount of ascitic fluid and splenomegaly. At this stage with the patient's weakness improved and altered mental status receding in the context of an improving ammonia level status post lactulose it was decided the patient was hemodynamically stable and medically clear for discharge back to rehab at [facility]. Patient is discharged to [facility] rehabilitation facility. Patient is advised to follow-up with her primary care and her her custom applicator. Patient advised to read literature given upon discharge in regards to diet and low-salt 1.5 L fluid restriction. (01/11) Pt seen and examined at bedside: Patient seen at bedside this morning, patient was drowsy but able to communicate. Patient reported her weakness had improved since admission. Vital signs reveiwed and stable: General: non toxic, no distress, appears older than stated age, normal weight Derm: no unusual rashes/lesions, warm Head: atraumatic, normocephalic, symmetric Eyes: EOMI, no lid lag, anicteric sclera, pupils equal round reactive to light ENT: Nose and ears atraumatic Neck: No cervical lymphadenopathy, trachea midline, supple Mouth: no lip lesion, mucus membranes moist Cardiovascular: S1S2 reg, no murmur, positive dorsalis pedis pulse bilateral, no edema Lungs: CTA bilateral, no rhonchi, no rales, no accessory muscle use Abdominal: Mildly distended, nontender to palpation, no guarding Ext: muscle strength 5 out of 5 in all 4 extremities grossly, no gross muscle atrophy, no contractures, no asterixis noted on examination Neuro: CN II-XI grossly intact, no gross focal neuro deficits Psych: Alert, oriented, appropriate affect A total of [] minutes were spent preparing this complex discarge summary. Patient was discharged on []. Attending physician: Phoenix Savage MD Consults: 01/10/24 20:15 Consult Physician Routine Consulting Provider: Mayda Rodríguez Consult Reason/Comments: elevated ammonia levels Do you want consulting provider notified?: Yes, Notify in am Primary care physician: Stated None Hospital Course: I have seen and evaluated the patient today. Discussed with the resident and agree with the residents subjective and objective as documented in the reside nt's note. The assessment and plan was discussed and outlined as below. Patient no longer confused. She is somewhat lethargic but she is also on Benadryl, Methadone and Gabapentin. Ammonia is trending down. B I recommend discontinuing Imodium, Benadryl, Chlorpheniramine, Trazaone and Gabapentin. Since Methadone is hepatically metabolized, we will decrease her dose to Meth adone 15 mg PO QD. Continue Lactulose 30g PO TID. Follow up with PCP within 1-2 days and GI within 1 week of discharge. Discharge Diagnosis: Acute metabolic encephalopathy due to hyperammonemia Ascites related to decompensated cirrhosis from Hep C Pancytopenia and Supratherapeutic INR due to cirrhosis Metabolic alkalosis Patient Condition at Discharge: Fair Plan - Discharge Summary Discharge Rx Participant: Yes New Discharge Prescriptions: New Lactulose [Cephulac] 30 gm PO TID #4050 ml Methadone [Dolophine] 15 mg PO DAILY tab Continue Thiamine [Vitamin B-1] 100 mg PO DAILY Calcium Carbonate [Tums] 1,000 mg PO Q4H PRN PRN Reason: Gi Upset Multivitamins, Thera [Multivitamin (formulary)] 1 tab PO DAILY Melatonin 10 mg PO HS Calcium Phos/D3/Magnesium/Zinc [Myzminx-Jrb-Cjcw-Vitamin D3] 1 tab PO TID PRN PRN Reason: Supplement Albuterol Sulfate [Ventolin HFA] 1 - 2 puff INHALATION RT-QID PRN PRN Reason: Shortness Of Breath Citalopram Hydrobromide [CeleXA] 40 mg PO DAILY ondansetron HCL [Zofran] 8 mg PO Q6H PRN PRN Reason: Nausea And Vomiting Zofran 2ml(4mg) 4 mg IM Q6H PRN PRN Reason: Nausea And Vomiting Furosemide [Lasix] 40 mg PO DAILY Ibuprofen [Motrin Ib] 600 mg PO Q6H PRN PRN Reason: Fever And/ Or Pain Budesonide/Formoterol Fumarate [Symbicort 80-4.5 Mcg Inhaler] 2 puff INHALATION RT-BID Spironolactone [Aldactone] 25 mg PO DAILY #30 tab Mylanta Regular Strength 30 ml PO Q4H PRN PRN Reason: GI UPSET Discontinued Loperamide HCl [Imodium A-D] 4 mg PO QID PRN MDD 16 MG PRN Reason: Loose Stool Chlorpheniramine Maleate [Chlor-Trimeton] 4 mg PO Q4H PRN PRN Reason: Allergy Symptoms traZODone HCL [Desyrel] 50 mg PO HS Gabapentin 600 mg PO TID PRN PRN Reason: Pain Methadone HCl [Methadone Intensol] 55 mg PO DAILY Discharge Medication List Albuterol Sulfate [Ventolin HFA] 1 - 2 puff INHALATION RT-QID PRN 01/05/24 [History] Budesonide/Formoterol Fumarate [Symbicort 80-4.5 Mcg Inhaler] 2 puff INHALATION RT-BID 01/05/24 [History] Calcium Carbonate [Tums] 1,000 mg PO Q4H PRN 01/05/24 [History] Calcium Phos/D3/Magnesium/Zinc [Yembhwb-Kwe-Jtav-Vitamin D3] 1 tab PO TID PRN 01/05/24 [History] Citalopram Hydrobromide [CeleXA] 40 mg PO DAILY 01/05/24 [History] Furosemide [Lasix] 40 mg PO DAILY 01/05/24 [History] Ibuprofen [Motrin Ib] 600 mg PO Q6H PRN 01/05/24 [History] Melatonin 10 mg PO HS 01/05/24 [History] Multivitamins, Thera [Multivitamin (formulary)] 1 tab PO DAILY 01/05/24 [History] Thiamine [Vitamin B-1] 100 mg PO DAILY 01/05/24 [History] Zofran 2ml(4mg) 4 mg IM Q6H PRN 01/05/24 [History] ondansetron HCL [Zofran] 8 mg PO Q6H PRN 01/05/24 [History] Spironolactone [Aldactone] 25 mg PO DAILY #30 tab 01/06/24 [Rx] Mylanta Regular Strength 30 ml PO Q4H PRN 01/10/24 [History] Lactulose [Cephulac] 30 gm PO TID #4050 ml 01/12/24 [Rx] Methadone [Dolophine] 15 mg PO DAILY tab 01/12/24 [Rx] Follow up Appointment(s)/Referral(s): Mayda Rodríguez MD [STAFF PHYSICIAN] - 1 Week (Please follow-up with our office or custom applicator near your home to follow-up on hepatitis C treatment and decompensated cirrhosis of the liver.) None,Stated [Primary Care Provider] - 1-2 days Activity/Diet/Wound Care/Special Instructions: Diet: Low salt 1.5L fluid restriction Discharge Disposition: OTHER INSTITUTION NOT DEFINED
--- NOTE | 2024-01-12 11:58 | P.PN ---
Subjective Progress Note Date: 01/12/24 Principal diagnosis: Altered mental status changes, hepatic encephalopathy This is a pleasant 59-year-old female who was sent into the emergency department from [facility] for concerns of altered mental status changes. According to the emergency department note patient was found to be lethargic and difficult to arouse so she was sent into the emergency department. She has a past medical history including cocaine and heroin abuse, nicotine dependence, hepatitis C, cirrhosis of the liver, COPD, and hypertension. Patient is currently alert and oriented x 3. She does seem somewhat drowsy. She had an elevated ammonia level on admission and was given lactulose 40 g x 1 dose and now on lactulose 20 g 4 times daily. Patient denies knowing history of cirrhosis, she is not answering all questions and not answering if she has been treated for hepatitis C and apparently looking at patient's history she was just admitted for abdominal distention and shortness of breath week ago. At that time she had a ultrasound of the liver that showed cirrhotic appearing liver with small amount of ascites. Will interventional radiology was consulted however there was not enough fluid for paracentesis. Patient states she has not had previous paracentesis. She is on Aldactone 25 mg daily as well as Lasix 40 mg daily. Labs are consistent with underlying liver disease. Patient denies any abdominal pain, nausea, or vomiting. 01/12/2024 Patient seen and examined today as a follow-up. Patient remains drowsy. States she had several bowel movements yesterday. Abdominal ultrasound completed yesterday to evaluate for ascites and reports small ascites, splenomegaly. Today's labs WBC 1.4 hemoglobin 9.9 platelet count 58,000 total bilirubin 2.0 AST 64 ALT 43 alkaline phosphatase 115 ammonia 38 hepatitis C antibody reactive. Quantitative and genotype pending. Discharge orders have been placed per primary medical team. Objective - Vital Signs Vital signs: Vital Signs Temp 98.1 F 01/10/24 18:00 Pulse 73 01/12/24 02:00 Resp 16 01/12/24 02:00 BP 144/77 01/12/24 02:00 Pulse Ox 96 01/12/24 08:33 FiO2 Intake & Output 01/11/24 01/12/24 01/12/24 18:59 06:59 18:59 Weight 61.235 kg - Exam General appearance: The patient is alert, oriented, drowsy but easily arousable. Appears in no acute distress. HET: Head is normocephalic and atraumatic. Conjunctiva pink. Sclera anicteric. Neck: Supple without lymphadenopathy. Trachea midline. Heart: Regular. Lungs: Equal expansion, normal respiratory effort. Abdomen: Soft, nontender, distended. Skin: No rashes. No jaundice. Extremities: Normal skin color and turgor. No pedal edema. Neurological: No focal deficits. Alert and oriented x3. - Labs CBC & Chem 7: 01/12/24 07:23 01/12/24 07:23 Labs: Abnormal Lab Results - Last 24 Hours (Table) 01/11/24 01/12/24 01/12/24 Range/Units 06:49 07:23 07:23 WBC 1.4 L* (3.8-10.6) k/uL RBC 3.05 L (3.80-5.40) m/uL Hgb 9.9 L (11.4-16.0) gm/dL Hct 30.6 L (34.0-46.0) % MCV 100.5 H (80.0-100.0) fL RDW 16.4 H (11.5-15.5) % Plt Count 58 L (150-450) k/uL Carbon Dioxide 32 H (22-30) mmol/L Glucose 73 L (74-99) mg/dL Calcium 8.0 L (8.4-10.2) mg/dL Total Bilirubin 2.0 H (0.2-1.3) mg/dL AST 64 H (14-36) U/L ALT 43 H (4-34) U/L Ammonia (<30) umol/L Total Protein 5.5 L (6.3-8.2) g/dL Albumin 2.4 L (3.5-5.0) g/dL Hep C IgG Ab Reactive A (Nonreactive) 01/12/24 Range/Units 07:23 WBC (3.8-10.6) k/uL RBC (3.80-5.40) m/uL Hgb (11.4-16.0) gm/dL Hct (34.0-46.0) % MCV (80.0-100.0) fL RDW (11.5-15.5) % Plt Count (150-450) k/uL Carbon Dioxide (22-30) mmol/L Glucose (74-99) mg/dL Calcium (8.4-10.2) mg/dL Total Bilirubin (0.2-1.3) mg/dL AST (14-36) U/L ALT (4-34) U/L Ammonia 38 H (<30) umol/L Total Protein (6.3-8.2) g/dL Albumin (3.5-5.0) g/dL Hep C IgG Ab (Nonreactive) Assessment and Plan (1) Hepatic encephalopathy Narrative/Plan: 59-year-old female presenting with altered mental status changes from rehab with known history of hepatitis C secondary to heroin IV use. Patient came in with elevated ammonia level at 57 secondary to liver cirrhosis from hepatitis C. Was started on lactulose with mild improvement to 52 however patient's mental status is improved. Patient is poor historian unclear if chronic hepatitis as he is untreated which is likely as patient still active heroin user up until 3 weeks ago. Will obtain hepatitis RNA and genotype. Continue with lactulose, patient will need to follow-up with spout liner helper on discharge for continued surveillance of liver cirrhosis. Continue with lactulose 30 g 3 times daily. Current Visit: Yes Status: Acute Code(s): K76.82 - HEPATIC ENCEPHALOPATHY SNOMED Code(s): 37697370 (2) Cirrhosis Narrative/Plan: [place] ultrasound with small amount of ascites, not enough for paracentesis. Current Visit: No Status: Acute Code(s): K74.60 - UNSPECIFIED CIRRHOSIS OF LIVER SNOMED Code(s): 92515931 (3) Hepatitis C Current Visit: Yes Status: Acute Code(s): B19.20 - UNSPECIFIED VIRAL HEPATITIS C WITHOUT HEPATIC COMA SNOMED Code(s): 92485939 (4) Heroin abuse Current Visit: Yes Status: Acute Code(s): F11.10 - OPIOID ABUSE, UNCOMPLICATED SNOMED Code(s): 9309691 (5) Cocaine abuse Current Visit: Yes Status: Acute Code(s): F14.10 - COCAINE ABUSE, UNCOMPLICATED SNOMED Code(s): 51667833 (6) Altered mental status Current Visit: Yes Status: Acute Code(s): R41.82 - ALTERED MENTAL STATUS, UNSPECIFIED SNOMED Code(s): 808051861 Plan: 1. Continue symptomatic and supportive care 2. Continue lactulose. Recommend lactulose 30 g 3 times daily on discharge with titrate to 2-4 bowel movements daily 3. Continue diuretics as ordered 4. Discontinue Imodium 5. Hepatitis C RNA and genotype ordered, pending 6. Abdominal ultrasound ordered to evaluate for ascites and reviewed 7. Discussed with patient importance to continue with refraining from heroin IV drug use 8. Patient will need follow-up with spout liner helper to manage hepatitis C and for liver surveillance. Patient lives in [place] but certainly can follow-up with us. Thank you for this consultation, patient is cleared from gastroenterology for discharge. Dr. Paulina Rodríguez I agree with the dictator's note, documented as a scribe by Sherry Reid.
[2024-01-12 13:02] VITALS: BP 113/81; PULSE 68; TEMP 97.6
[2024-01-13] MEDS ORDERED: METHADONE 5 MG TAB PO SCH (09:00)
== END 2024-01-12 12:10 | disposition other institution (70) ==
LOC: EC 12:57 → 5NMEDONC 20:15 → INTOOBSV 20:15
PROVIDERS: ADMIT Internal Medicine; ATTEND Internal Medicine
DX: R41.82 Altered mental status, unspecified (principal); R53.1 Weakness; K76.82 Hepatic encephalopathy; K74.60 Unspecified cirrhosis of liver; R18.8 Other ascites; B18.2 Chronic viral hepatitis C; F11.10 Opioid abuse, uncomplicated; F14.10 Cocaine abuse, uncomplicated; E87.3 Alkalosis; D61.818 Other pancytopenia; J44.9 Chronic obstructive pulmonary disease, unspecified; I11.0 Hypertensive heart disease with heart failure; I50.9 Heart failure, unspecified; E86.0 Dehydration; R79.1 Abnormal coagulation profile; F17.200 Nicotine dependence, unspecified, uncomplicated; Z79.51 Long term (current) use of inhaled steroids; Z79.899 Other long term (current) drug therapy; Z88.1 Allergy status to other antibiotic agents; Z11.52 Encounter for screening for COVID-19
CPT/HCPCS: 96376; 96361 ×2; 96372 ×2; 96374; 99285; 36415; 94640 ×4; 94760 ×2; 93005; 83880; 87522; 80053 ×3; 80074; 84443; 82140 ×3; 82550; 83690; 83735; 84484; 85025 ×2; 85027; 85610; 85730; 81003; 80306; 87636; 71046; 76705; 70450; G0378 ×3; G0480; J1200; J1650 ×2; S0109 ×4; 80320

== ENCOUNTER 2024-04-28 17:32 | Inpatient (IN) | payer OTHER ==
--- NOTE | 2024-04-28 17:50 | ED ---
SOB HPI - General Source: patient, RN notes reviewed Mode of arrival: wheelchair Limitations: no limitations - History of Present Illness MD Complaint: shortness of breath Onset/Timin -: days(s) Worsens With: exertion Known History Of: COPD <Pankaj Willingham - Last Filed: 04/28/24 17:48> - General Source: patient, RN notes reviewed, old records reviewed Limitations: no limitations <Santo Cabrera - Last Filed: 04/28/24 20:32> - General Stated Complaint: SOB Time Seen by Provider: 04/28/24 17:48 - History of Present Illness Initial Comments: Quick note: This is a 59-year-old female with history of COPD presenting with shortness of breath, dyspnea and fatigue x 2 days. Patient endorses significant worsening symptoms with any type of exertion. Patient denies fever, chills, chest pain, cough. (Pankaj Willingham) 59-year-old female presenting to the emergency department for difficulty in breathing. Patient states symptoms have progressed over the past couple of days. Patient does have occasional cough. Patient has some chest congestion that she is not able to get up. Patient feels fatigued. No fever. Patient does have some abdominal distention which she has had a couple times previously associated with cirrhosis. Patient has had this drained twice previously. P fercho does have history of alcohol use however not recently. Patient was currently at [place] for cocaine use. (Santo Cabrera) - Related Data Home Medications Medication Instructions Recorded Confirmed Albuterol Sulfate [Ventolin HFA] 1 - 2 puff INHALATION RT-QID PRN 01/05/24 04/28/24 Calcium Phos/D3/Magnesium/Zinc 1 tab PO TID PRN 01/05/24 04/28/24 [Lgcxhsa-Ghz-Uqjt-Vitamin D3] Citalopram Hydrobromide [CeleXA] 40 mg PO DAILY 01/05/24 04/28/24 Ibuprofen [Motrin Ib] 600 mg PO Q6H PRN 01/05/24 04/28/24 Multivitamins, Thera [Multivitamin 1 tab PO DAILY 01/05/24 04/28/24 (formulary)] Thiamine [Vitamin B-1] 100 mg PO DAILY 01/05/24 04/28/24 ondansetron HCL [Zofran] 8 mg PO Q6H PRN 01/05/24 04/28/24 Mylanta Regular Strength 30 ml PO Q4H PRN 01/10/24 04/28/24 Chlorpheniramine Maleate 4 mg PO Q4H PRN 04/28/24 04/28/24 [Chlor-Trimeton] Docusate [Colace] 100 mg PO BID PRN 04/28/24 04/28/24 Gabapentin 600 mg PO BID PRN 04/28/24 04/28/24 busPIRone HCL 15 mg PO TID PRN 04/28/24 04/28/24 traZODone HCL [Desyrel] 50 mg PO HS 04/28/24 04/28/24 Allergies Allergy/AdvReac Type Severity Reaction Status Date / Time levofloxacin [From Levaquin] Allergy Rash/Hives Verified 04/28/24 18:23 tetracycline Allergy Rash/Hives Verified 04/28/24 18:23 Review of Systems ROS Other: All systems not noted in ROS Statement are negative. <Pankaj Willingham - Last Filed: 04/28/24 17:48> ROS Other: All systems not noted in ROS Statement are negative. Constitutional: Denies: fever Eyes: Denies: eye pain ENT: Denies: ear pain Respiratory: Reports: as per HPI, cough, dyspnea Cardiovascular: Denies: chest pain Endocrine: Reports: fatigue Gastrointestinal: Reports: as per HPI Musculoskeletal: Denies: back pain <Santo Cabrera - Last Filed: 04/28/24 20:32> ROS Statement: Those systems with pertinent positive or pertinent negative responses have been documented in the HPI. Past Medical History Past Medical History: Heart Failure, COPD, Hypertension, Liver Disease Additional Past Medical History / Comment(s): hep C, drug abuse History of Any Multi-Drug Resistant Organisms: MRSA Date of last positivie culture/infection: 1999 MDRO Source:: skull Past Surgical History: Orthopedic Surgery Additional Past Surgical History / Comment(s): C1C2 fusion. Fusion thoracic s pine. Brain bleed sx Past Anesthesia/Blood Transfusion Reactions: No Reported Reaction Past Psychological History: PTSD Smoking Status: Current every day smoker Past Alcohol Use History: Occasional Past Drug Use History: Cocaine, Heroin, Opiates, Prescription Drug Abuse <Pankaj Willingham - Last Filed: 04/28/24 17:48> General Exam <Pankaj Willingham Last Filed: 04/28/24 17:48> Limitations: no limitations General appearance: alert, in no apparent distress Head exam: Present: normocephalic Eye exam: Present: normal appearance Neck exam: Present: normal inspection Respiratory exam: Present: decreased breath sounds Cardiovascular Exam: Present: regular rate, normal rhythm GI/Abdominal exam: Present: soft, distended. Absent: tenderness, pulsatile mass Extremities exam: Present: pedal edema (Trace bilateral). Absent: calf tenderness Neurological exam: Present: alert Psychiatric exam: Present: normal affect, normal mood Skin exam: Present: normal color <Santo Cabrera - Last Filed: 04/28/24 20:32> - General Exam Comments Initial Comments: Visual Physical Exam Vital signs reviewed General: Well-appearing, nontoxic. Patient appears very fatigued in wheelchair Head: Normocephalic, atraumatic Eyes: PERRLA, EOMI ENT: Airway patent Chest: Labored breathing Skin: No visual rash, normal skin tone Neuro: Alert and oriented 3 Musculoskeletal: No gross abnormalities (Pankaj Willingham) Course Vital Signs 04/28/24 04/28/24 04/28/24 17:52 18:30 19:00 Temperature 99.2 F Pulse Rate 103 H 101 H 102 H Respiratory 20 24 26 H Rate Blood Pressure 106/72 120/73 119/73 O2 Sat by Pulse 96 98 97 Oximetry Medical Decision Making <Pankaj Willingham - Last Filed: 04/28/24 17:48> - Lab Data Result diagrams: 04/28/24 18:27 04/28/24 18:27 <Santo Cabrera - Last Filed: 04/28/24 20:32> - Medical Decision Making I completed the quick note portion of this chart signed VIVI Garcia (Pankaj Willingham) EKG interpreted by myself shows sinus tach with a rate of 103. Normal axis. Normal intervals. Normal QRS. No acute ST change. Was pt. sent in by a medical professional or institution ([facility], [employer], urgent care, hospital, or half-way...) When possible be specific @ -Patient was sent in by [facility] Did you speak to anyone other than the patient for history (EMS, parent, family, police, friend...)? What history was obtained from this source @ -No Did you review nursing and triage notes (agree or disagree)? Why? @ -I reviewed and agree with nursing and triage notes Were old charts reviewed (outside hosp., previous admission, EMS record, old EKG, old radiological studies, urgent care reports/EKG's, half-way records)? Report findings @ -No old charts were reviewed Differential Diagnosis (chest pain, altered mental status, abdominal pain women, abdominal pain men, vaginal bleeding, weakness, fever, dyspnea, syncope, headache, dizziness, GI bleed, back pain, seizure, CVA, palpatations, mental health, musculoskeletal)? @ -MDM differential disc differential Dyspnea: Coronary syndrome, arrhythmia, tamponade, asthma, COPD, pulmonary embolism, pneumonia, pneumothorax, pulmonary effusion, anaphylaxis, diabetic ketoacidosis, flailed chest, pulmonary contusion, diaphragmatic rupture, anemia, neuromuscular, this is not meant to be an all-inclusive list. EKG interpreted by me (3pts min.). @ -As above X-rays interpreted by me (1pt min.). @ -Chest x-ray does show some cephalization CT interpreted by me (1pt min.). @ -CT chest negative for pulmonary embolism. There is some pulmonary edema and ascites U/S interpreted by me (1pt. min.). @ -None done What testing was considered but not performed or refused? (CT, X-rays, U/S, labs)? Why? @ -None What meds were considered but not given or refused? Why? @ -None Did you discuss the management of the patient with other professionals (professionals i.e. , PA, [employer]ACHINE [employer], lab, RT, psych nurse, social media community manager, wood stainer, teacher, chief lifestyle officer, case manager specialist)? Give summary @ -[facility] Dr. Jeter who will admit to cover for hospital call Was smoking cessation discussed for >3mins.? @ -No Was critical care preformed (if so, how long)? @ -No Were there social determinants of health that impacted care today? How? (Homelessness, low income, unemployed, alcoholism, drug addiction, transportation, low edu. Level, literacy, decrease access to med. care, [place] [facility], rehab)? @ -No Was there de-escalation of care discussed even if they declined (Discuss DNR or withdrawal of care, Hospice)? DNR status @ -No What co-morbidities impacted this encounter? (DM, HTN, Smoking, COPD, CAD, Cancer, CVA, ARF, Chemo, Hep., AIDS, mental health diagnosis, sleep apnea, morbid obesity)? @ -History of cirrhosis associated with alcohol use. Was patient admitted / discharged? Hospital course, mention meds given and route, prescriptions, significant lab abnormalities, going to OR and other pertinent info. @ -Patient presents with dyspnea and ascites. Patient to be admitted with diuresis, admission orders written Undiagnosed new problem with uncertain prognosis? @ -No Drug Therapy requiring intensive monitoring for toxicity (Heparin, Nitro, Insulin, Cardizem)? @ -No Were any procedures done? @ -No Diagnosis/symptom? @ -Farzad edema , ascites Acute, or Chronic, or Acute on Chronic? @ -Acute , acute on chronic Uncomplicated (without systemic symptoms) or Complicated (systemic symptoms)? @ -Default Side effects of treatment? @ -No Exacerbation, Progression, or Severe Exacerbation? @ -Exacerbation of CHF Poses a threat to life or bodily function? How? (Chest pain, [place], [place], pneumonia, PE, COPD, DKA, ARF, appy, cholecystitis, CVA, Diverticulitis, Homicidal, Suicidal, threat to staff... and all critical care pts) @ -Threat to cardiac and pulmonary from (Santo Cabrera) - Lab Data Lab Results 04/28/24 04/28/24 04/28/24 Range/Units 18:27 18:27 18:27 WBC 3.9 (3.8-10.6) k/uL RBC 2.94 L (3.80-5.40) m/uL Hgb 10.2 L (11.4-16.0) gm/dL Hct 30.5 L (34.0-46.0) % MCV 103.8 H (80.0-100.0) fL MCH 34.6 (25.0-35.0) pg MCHC 33.3 (31.0-37.0) g/dL RDW 18.2 H (11.5-15.5) % Plt Count 57 L (150-450) k/uL MPV 9.6 Neutrophils % 72 % Lymphocytes % 14 % Monocytes % 8 % Eosinophils % 2 % Basophils % 0 % Neutrophils # 2.8 (1.3-7.7) k/uL Lymphocytes # 0.5 L (1.0-4.8) k/uL Monocytes # 0.3 (0-1.0) k/uL Eosinophils # 0.1 (0-0.7) k/uL Basophils # 0.0 (0-0.2) k/uL Manual Slide Review Performed Hypochromasia Moderate Poikilocytosis Slight Anisocytosis Slight Macrocytosis Moderate PT 16.3 H (10.0-12.5) sec INR 1.6 H (<1.2) APTT 31.6 H (22.0-30.0) sec D-Dimer 3.94 H (<0.60) mg/L FEU Sodium 141 (137-145) mmol/L Potassium 3.8 (3.5-5.1) mmol/L Chloride 111 H (98-107) mmol/L Carbon Dioxide 27 (22-30) mmol/L Anion Gap 3 mmol/L BUN 11 (7-17) mg/dL Creatinine 0.46 L (0.52-1.04) mg/dL Est GFR (CKD-EPI)AfAm >90 (>60 ml/min/1.73 sqM) Est GFR (CKD-EPI)NonAf >90 (>60 ml/min/1.73 sqM) Glucose 103 H (74-99) mg/dL Plasma Lactic Acid Pj (0.7-2.0) mmol/L Calcium 8.5 (8.4-10.2) mg/dL Magnesium 1.9 (1.6-2.3) mg/dL Total Bilirubin 2.4 H (0.2-1.3) mg/dL AST 47 H (14-36) U/L ALT 40 H (4-34) U/L Alkaline Phosphatase 120 (38-126) U/L Troponin I (0.000-0.034) ng/mL NT-Pro-B Natriuret Pep 203 pg/mL Total Protein 6.0 L (6.3-8.2) g/dL Albumin 3.2 L (3.5-5.0) g/dL Influenza Type A (PCR) (Not Detectd) Influenza Type B (PCR) (Not Detectd) RSV (PCR) (Not Detectd) SARS-CoV-2 (PCR) (Not Detectd) 04/28/24 04/28/24 04/28/24 Range/Units 18:27 18:27 18:27 WBC (3.8-10.6) k/uL RBC (3.80-5.40) m/uL Hgb (11.4-16.0) gm/dL Hct (34.0-46.0) % MCV (80.0-100.0) fL MCH (25.0-35.0) pg MCHC (31.0-37.0) g/dL RDW (11.5-15.5) % Plt Count (150-450) k/uL MPV Neutrophils % % Lymphocytes % % Monocytes % % Eosinophils % % Basophils % % Neutrophils # (1.3-7.7) k/uL Lymphocytes # (1.0-4.8) k/uL Monocytes # (0-1.0) k/uL Eosinophils # (0-0.7) k/uL Basophils # (0-0.2) k/uL Manual Slide Review Hypochromasia Poikilocytosis Anisocytosis Macrocytosis PT (10.0-12.5) sec INR (<1.2) APTT (22.0-30.0) sec D-Dimer (<0.60) mg/L FEU Sodium (137-145) mmol/L Potassium (3.5-5.1) mmol/L Chloride (98-107) mmol/L Carbon Dioxide (22-30) mmol/L Anion Gap mmol/L BUN (7-17) mg/dL Creatinine (0.52-1.04) mg/dL Est GFR (CKD-EPI)AfAm (>60 ml/min/1.73 sqM) Est GFR (CKD-EPI)NonAf (>60 ml/min/1.73 sqM) Glucose (74-99) mg/dL Plasma Lactic Acid Pj 2.0 (0.7-2.0) mmol/L Calcium (8.4-10.2) mg/dL Magnesium (1.6-2.3) mg/dL Total Bilirubin (0.2-1.3) mg/dL AST (14-36) U/L ALT (4-34) U/L Alkaline Phosphatase (38-126) U/L Troponin I 0.012 (0.000-0.034) ng/mL NT-Pro-B Natriuret Pep pg/mL Total Protein (6.3-8.2) g/dL Albumin (3.5-5.0) g/dL Influenza Type A (PCR) Not Detected (Not Detectd) Influenza Type B (PCR) Not Detected (Not Detectd) RSV (PCR) Not Detected (Not Detectd) SARS-CoV-2 (PCR) Not Detected (Not Detectd) Disposition <Pankaj Willingham - Last Filed: 04/28/24 17:48> Is patient prescribed a controlled substance at d/c from ED?: No Time of Disposition: 20:14 <Santo Cabrera - Last Filed: 04/28/24 20:32> Clinical Impression: Ascites, Pulmonary edema Disposition: ADMITTED IP TO THIS HOSP
[2024-04-28 18:38] LABS: Anisocytosis Slight; Basophils % (A) 0 %; Eosinophils # (A) 0.1 k/uL (0-0.7); Eosinophils % (A) 2 %; HCT 30.5 % (34.0-46.0); HGB 10.2 gm/dL (11.4-16.0); Hypochromasia Moderate; Lymphocytes # (A) 0.5 k/uL (1.0-4.8); Lymphocytes % (A) 14 %; MCH 34.6 pg (25.0-35.0); MCHC 33.3 g/dL (31.0-37.0); MCV 103.8 fL (80.0-100.0); Macrocytosis Moderate; Mean Platelet Volume 9.6; Monocytes # (A) 0.3 k/uL (0-1.0); Monocytes % (A) 8 %; Neutrophils # (A) 2.8 k/uL (1.3-7.7); Neutrophils % (A) 72 %; Poikilocytosis Slight; RBC 2.94 m/uL (3.80-5.40); RDW 18.2 % (11.5-15.5); WBC 3.9 k/uL (3.8-10.6)
--- NOTE | 2024-04-28 18:45 | XR ---
EXAMINATION TYPE: XR chest 2V DATE OF EXAM: 04/28/2024 6:41 PM COMPARISON: Chest radiographs from 01/10/2024 CLINICAL INDICATION: Female, 59 years old with history of difficulty breathing; [facility] TECHNIQUE: XR chest 2V Frontal and lateral views of the chest. FINDINGS: Lungs/Pleura: There is no evidence of pleural effusion, focal consolidation, or pneumothorax. Pulmonary vascularity: Pulmonary vascular congestion. Heart/mediastinum: Cardiomediastinal silhouette is unremarkable. Musculoskeletal: No acute osseous pathology. Fixation hardware in the left humerus appears intact. IMPRESSION: Pulmonary vascular prominence correlate for pulmonary edema. [facility], , 04/28/2024 6:43 PM
[2024-04-28 18:54] LABS: ALT 40 U/L (4-34); AST 47 U/L (14-36); African American GFR (CKD) >90 (>60 ml/min/1.73 sqM); Albumin 3.2 g/dL (3.5-5.0); Alkaline Phosphatase 120 U/L (38-126); Anion Gap 3 mmol/L; Blood Urea Nitrogen 11 mg/dL (7-17); Calcium 8.5 mg/dL (8.4-10.2); Carbon Dioxide 27 mmol/L (22-30); Chloride 111 mmol/L (98-107); Glucose 103 mg/dL (74-99); Magnesium 1.9 mg/dL (1.6-2.3); Non-African American GFR(CKD) >90 (>60 ml/min/1.73 sqM); Potassium 3.8 mmol/L (3.5-5.1); Sodium 141 mmol/L (137-145); Total Bilirubin 2.4 mg/dL (0.2-1.3)
[2024-04-28 19:02] LABS: NT-Pro-B-Type Natriuretic Pept 203 pg/mL
[2024-04-28 19:08] LABS: INR 1.6 (<1.2); Partial Thromboplastin Time 31.6 sec (22.0-30.0); Platelet Count 57 k/uL (150-450); Prothrombin Time 16.3 sec (10.0-12.5)
--- NOTE | 2024-04-28 19:51 | CT ---
EXAMINATION TYPE: CT angio chest DATE OF EXAM: 04/28/2024 7:28 PM COMPARISON: Chest radiograph from same day. CLINICAL INDICATION: Female, 59 years old with history of dyspnea; elevated d-dimer TECHNIQUE/CONTRAST: CTA scan of the thorax is performed with IV Contrast, patient injected with 100 mL of Isovue 370, MIP images are created and reviewed these are created on a separate workstation.. CT DLP: 205.5 mGycm, Automated exposure control for dose reduction was used. FINDINGS: Lungs/Pleura: No evidence of focal consolidation, right pleural effusion or pneumothorax. Mild-to-mo derate emphysema. Upper lobe pulmonary nodule measuring 10 mm just above the aortic arch. Interstitia l or septal thickening. Elevated left diaphragm. Airway: Large airways are patent. Heart: Heart is within normal limits for size. Vasculature: There is no evidence for a filling defect within the pulmonary vasculature to suggest ac circle pulmonary embolism. The pulmonary artery is of normal size. Mediastinum: No gross evidence of adenopathy. Musculoskeletal: No acute osseous abnormalities Soft Tissues/lymph nodes: Unremarkable. Lower neck: No significant findings. Upper Abdomen: Hepatic cirrhosis with nodular contour to liver. Gallstones in the gallbladder lumen. Spleen is enlarged for size measuring up to 13.2 cm. Moderate amount of fluid in the abdomen. IMPRESSION: 1. No evidence of pulmonary embolism. Mild pulmonary edema. 2. Hepatic cirrhosis with evidence of portal hypertension and moderate to large ascites. 3. Left upper lobe pulmonary nodule near the aortic arch is indeterminate measuring up to 10 mm. 4. Elevated right diaphragm 5. Cholelithiasis. Follow up recommendations for incidental pulmonary nodules, if there are any, are per [employer] [employer] or [employer] [place] [employer]. https://radiopaedia.org/articles/btwvjzhqwr-nfpttff-ggnmxbrbh-sfomrs-omkjyhjmslojhys-2?lang=us [facility], , 04/28/2024 7:49 PM
[2024-04-28] MEDS: CALCIUM CARBONATE 500 MG CHEWABLE PO STA (19:56)
[2024-04-28] MEDS: ASPIRIN 325 MG TAB PO STA (20:52)
[2024-04-28] MEDS: FUROSEMIDE 10 MG/ML 4 ML VIAL IV SCH (20:53)
[2024-04-29] MEDS: CALCIUM CARBONATE 500 MG CHEWABLE PO PRN (00:21)
[2024-04-29] MEDS: PANTOPRAZOLE 40 MG TABLET PO SCH (06:32)
[2024-04-29] MEDS: ASPIRIN 325 MG TAB PO SCH (09:07)
--- NOTE | 2024-04-29 10:37 | US ---
EXAMINATION TYPE: US paracentesis abd w/image DATE OF EXAM: 04/29/2024 9:49 AM COMPARISON: prior paracentesis. CLINICAL INDICATION:Female, 59 years old with history of see IR consult for ordering information; , a scites ATTENDING: Dr. Sergio Chavez PROCEDURE: Informed consent was obtained. The risks of the procedure were extensively explained incl uding risk of damage to surrounding bowel with perforation and need for additional procedures. Proced ure was performed in the ultrasound procedure suite. Ultrasound imaging of the abdomen demonstrate as citic fluid. An appropriate access site was localized to the left lower abdomen. Timeout was taken pe r protocol. The skin was prepped and draped in the usual sterile fashion and then locally anesthetize d with 1% lidocaine. The peritoneal cavity was then accessed via a 5-[place] one-step needle/catheter . Approximately 2500 mL of clear straw-colored fluid was obtained. Samples were sent to the lab for analysis. Postprocedural imaging of the abdomen demonstrate a minimal amount of abdominal fluid. Patient tolerated procedure well without immediate complication. Hemostasis at the procedural site w as obtained with a sterile bandage placed. The patient was monitored in the holding area following th e procedure and was subsequently discharged in stable condition. IMPRESSION: Ultrasound guided paracentesis, with approximately 2500 mL of clear straw-colored fluid drained. Path ology results pending. No immediate complications were evident. [facility], , 04/29/2024 10:35 AM
[2024-04-29 14:21] VITALS: BMI 19.4
[2024-04-29] MEDS: LACTULOSE 20 GM/30 ML CUP PO SCH (16:18)
[2024-04-29] MEDS ORDERED: ALBUTEROL NEBULIZED 2.5 MG/3 ML INHALATION PRN (16:28)
--- NOTE | 2024-04-29 16:30 | P.HPIM ---
History of Present Illness H&P Date: 04/29/24 Chief Complaint: Shortness of breath Patient is a 59-year-old female with past medical history of COPD, CHF, liver failure and ascites presented to the ER with shortness of breath. The patient mentions her symptoms started 2 days ago. Her shortness of breath and fatigue have been worsening since the past couple of days. She also endorses significant dyspnea with exertion. It is associated with occasional cough as well as some congestion without sputum production. Additionally she also mentions of having abdominal distention. [facility] She is currently undergoing rehab at [facility] for cocaine use. Moreover she mentions being at [facility] a few days ago for C. difficile colitis and was treated with oral vancomycin. Denies fever, chills, dysuria, hematuria, melena,, hematochezia. ED documentation reviewed. In the ED she was treated with aspirin 325 mg, calcium carbonate 1000 mg and Lasix 20 mg. Vitals on admission T 99.2 F, MN 103 bpm, RR 20, BP 106/72, O2 sat 96% on room air EKG independently interpreted as sinus tachycardia, rate 103 bpm, QTc 396 ms Chest x-ray shows pulmonary vascular prominence correlate for pulmonary edema Chest CTA shows no evidence of pulmonary embolism, mild pulmonary edema. Hepatic cirrhosis with evidence of portal hypertension and moderate to large ascites. The left upper lobe pulmonary nodule near the aortic arch is indeterminate measuring up to 10 mm. Elevated right diaphragm. Cholelithiasis Labs on admission show hemoglobin 10.2, MCV 103.8, platelet count 57, PT 16.3, INR 1.6, APTT 31.6, sodium 141, total bilirubin 2.4, AST 47, ALT 40 Troponin I 0.012, proBNP 203, D-dimer 3.94 Respiratory panel negative Review of systems: Pertinent positives and negatives as discussed in HPI, a complete review of systems was performed and all other systems are negative. PMH: Heart failure, COPD, hypertension, ascites, hepatitis C PSH: Orthopedic surgery Social history: Tobacco: Current everyday smoker Alcohol: Occasional Recreational drugs: Cocaine, heroin, opiates Physical examination: Vital signs reviewed General: nontoxic, no distress, appears at stated age Derm: warm, dry, intact Head: atraumatic, normocephalic, symmetric Eyes: EOMI, anicteric sclera Mouth: no lip lesion, mucus membranes moist Cardiovascular: S1 S2 reg, no murmur Lungs: CTA bilateral, no rhonchi, no rales, no accessory muscle use Abdominal: soft, non-tender to palpataion Extremities: No cyanosis, clubbing, or pedal edema. Neuro: Alert, Oriented, Gross neurological examination did not reveal any focal deficits. Psych: well appearing, appropriate affect Assessment/Plan: Patient is a 59-year-old female with past medical history of CHF, COPD, hypertension and ascites who presented with shortness of breath. She has been ad mitted for ascites and got a paracentesis today, 2.5L was removed. #. Ascites, due to cirrhosis secondary to alcohol vs Hepatitis C -Labs show total bilirubin 2.4, AST 47, ALT 40, PT 16.3, INR 1.6, APTT 31.6, D- dimer 3.94, -Chest CTA shows no evidence of pulmonary embolism, mild pulmonary edema. Hepatic cirrhosis with evidence of portal hypertension and moderate to large ascites. The left upper lobe pulmonary nodule near the aortic arch is indeterminate measuring up to 10 mm. Elevated right diaphragm. Cholelithiasis -Paracentesis done today, 2.5L was removed -Started on IV lasix 20 mg BID -Started on Aldactone 25 mg PO daily #. Acid reflux -Continue Tums 500 mg PO TID MN #. Neuropathy -Continue Gabapentin 600 mg PO BID PRN #. Anxiety/depression -Continue home meds buspirone 15 mg p.o. 3 times daily as needed, citalopram 40 mg p.o. daily, trazodone 50 mg p.o. at bedtime F: None E: Replete as required N: Heart healthy diet A: Bedrest DVT prophylaxis: SCD GI prophylaxis: Pantoprazole 40 mg p.o. twice daily The patient is admitted with an anticipated more than 2 midnight stay for evaluation of shortness of breath CODE STATUS: Full code Discussed with: Patient Anticipated discharge place: Home Attestation I have seen and examined this patient with my resident , discussed the same with the resident/DAYRON, and agree with the dictator's assessment and plan as written Dr. Higinio danielson Past Medical History Past Medical History: Heart Failure, COPD, Hypertension, Liver Disease Additional Past Medical History / Comment(s): hep C, drug abuse History of Any Multi-Drug Resistant Organisms: MRSA Date of last positivie culture/infection: 1999 MDRO Source:: skull Past Surgical History: Orthopedic Surgery Additional Past Surgical History / Comment(s): C1C2 fusion. Fusion thoracic spine. Brain bleed sx Past Anesthesia/Blood Transfusion Reactions: No Reported Reaction Past Psychological History: PTSD Smoking Status: Current every day smoker Past Alcohol Use History: Occasional Past Drug Use History: Cocaine, Heroin, Opiates, Prescription Drug Abuse Medications and Allergies Home Medications Medication Instructions Recorded Confirmed Type Albuterol Sulfate [Ventolin HFA] 1 - 2 puff INHALATION RT-QID PRN 01/05/24 04/28/24 History Calcium Phos/D3/Magnesium/Zinc 1 tab PO TID PRN 01/05/24 04/28/24 History [Tnasdkc-Ubt-Wdqr-Vitamin D3] Citalopram Hydrobromide [CeleXA] 40 mg PO DAILY 01/05/24 04/28/24 History Ibuprofen [Motrin Ib] 600 mg PO Q6H PRN 01/05/24 04/28/24 History Multivitamins, Thera [Multivitamin 1 tab PO DAILY 01/05/24 04/28/24 History (formulary)] Thiamine [Vitamin B-1] 100 mg PO DAILY 01/05/24 04/28/24 History ondansetron HCL [Zofran] 8 mg PO Q6H PRN 01/05/24 04/28/24 History Mylanta Regular Strength 30 ml PO Q4H PRN 01/10/24 04/28/24 History Chlorpheniramine Maleate 4 mg PO Q4H PRN 04/28/24 04/28/24 History [Chlor-Trimeton] Docusate [Colace] 100 mg PO BID PRN 04/28/24 04/28/24 History Gabapentin 600 mg PO BID PRN 04/28/24 04/28/24 History busPIRone HCL 15 mg PO TID PRN 04/28/24 04/28/24 History traZODone HCL [Desyrel] 50 mg PO HS 04/28/24 04/28/24 History Allergies Allergy/AdvReac Type Severity Reaction Status Date / Time levofloxacin [From Levaquin] Allergy Rash/Hives Verified 04/28/24 18:23 tetracycline Allergy Rash/Hives Verified 04/28/24 18:23 Physical Exam Vitals: Vital Signs Temp Pulse Pulse Resp BP BP Pulse Ox 04/29/24 03:18 97.5 F L 98 22 129/79 93 L 04/29/24 01:04 104 H 22 04/28/24 23:38 99.4 F 104 H 22 128/80 100 04/28/24 22:16 99.2 F 63 22 133/82 96 04/28/24 20:33 100 20 134/79 98 04/28/24 19:00 102 H 26 H 119/73 97 04/28/24 18:30 101 H 24 120/73 98 04/28/24 17:52 99.2 F 103 H 20 106/72 96 Intake and Output 04/28/24 04/29/24 04/29/24 22:59 06:59 14:59 Intake Total 444 360 Output Total 0 1202 Balance 444 -1202 360 Intake: IV 10 Invasive Line 1 10 Oral 444 350 Output: Urine 0 1200 Stool 2 Other: # Voids 1 # Bowel Movements 1 Weight 52.617 kg 51.4 kg Results CBC & Chem 7: 04/30/24 06:50 04/30/24 06:50 Labs: Abnormal Lab Results - Last 24 Hours (Table) 04/28/24 04/28/24 04/28/24 Range/Units 18:27 18:27 18:27 RBC 2.94 L (3.80-5.40) m/uL Hgb 10.2 L (11.4-16.0) gm/dL Hct 30.5 L (34.0-46.0) % MCV 103.8 H (80.0-100.0) fL RDW 18.2 H (11.5-15.5) % Plt Count 57 L (150-450) k/uL Lymphocytes # 0.5 L (1.0-4.8) k/uL PT 16.3 H (10.0-12.5) sec INR 1.6 H (<1.2) APTT 31.6 H (22.0-30.0) sec D-Dimer 3.94 H (<0.60) mg/L FEU Chloride 111 H (98-107) mmol/L Creatinine 0.46 L (0.52-1.04) mg/dL Glucose 103 H (74-99) mg/dL Total Bilirubin 2.4 H (0.2-1.3) mg/dL AST 47 H (14-36) U/L ALT 40 H (4-34) U/L Total Protein 6.0 L (6.3-8.2) g/dL Albumin 3.2 L (3.5-5.0) g/dL Thrombosis Risk Factor Assmnt - Choose All That Apply Any of the Below Risk Factors Present?: Yes Each Factor Represents 1 point: Age 41-60 years Other Risk Factors: No Other congenital or acquired thrombophilia - If yes, enter type in comment: No Thrombosis Risk Factor Assessment Total Risk Factor Score: 1 Thrombosis Risk Factor Assessment Level: Low Risk
[2024-04-29] MEDS: busPIRone HCl 5 MG TAB PO PRN (18:22)
[2024-04-29] MEDS: traZODone HCL 50 MG TAB PO SCH (20:06)
[2024-04-29] MEDS: FUROSEMIDE 10 MG/ML 2 ML VIAL IV SCH (20:06)
[2024-04-29] MEDS: GABAPENTIN 300 MG CAP PO PRN (21:41)
[2024-04-30 07:36] LABS: Anisocytosis Slight; HCT 30.7 % (34.0-46.0); HGB 10.3 gm/dL (11.4-16.0); Hypochromasia Moderate; MCHC 33.4 g/dL (31.0-37.0); MCV 104.5 fL (80.0-100.0); Macrocytosis Marked; Mean Platelet Volume 9.6; RBC 2.94 m/uL (3.80-5.40); RDW 17.9 % (11.5-15.5); WBC 4.8 k/uL (3.8-10.6)
[2024-04-30 07:41] LABS: Platelet Count 48 k/uL (150-450)
[2024-04-30 07:54] LABS: African American GFR (CKD) >90 (>60 ml/min/1.73 sqM); Anion Gap 3 mmol/L; Blood Urea Nitrogen 14 mg/dL (7-17); Calcium 7.8 mg/dL (8.4-10.2); Carbon Dioxide 31 mmol/L (22-30); Chloride 105 mmol/L (98-107); Glucose 96 mg/dL (74-99); Non-African American GFR(CKD) >90 (>60 ml/min/1.73 sqM); Potassium 3.3 mmol/L (3.5-5.1); Sodium 139 mmol/L (137-145)
[2024-04-30 10:19] LABS: ALT 41 U/L (4-34); AST 58 U/L (14-36); African American GFR (CKD) >90 (>60 ml/min/1.73 sqM); Albumin 3.1 g/dL (3.5-5.0); Alkaline Phosphatase 171 U/L (38-126); Anion Gap 5 mmol/L; Blood Urea Nitrogen 15 mg/dL (7-17); Calcium 8.2 mg/dL (8.4-10.2); Carbon Dioxide 31 mmol/L (22-30); Chloride 104 mmol/L (98-107); Glucose 103 mg/dL (74-99); Non-African American GFR(CKD) >90 (>60 ml/min/1.73 sqM); Potassium 3.3 mmol/L (3.5-5.1); Sodium 140 mmol/L (137-145); Total Bilirubin 2.9 mg/dL (0.2-1.3); Total Protein 6.1 g/dL (6.3-8.2)
[2024-04-30] MEDS: POTASSIUM CHLORIDE 10 MEQ in WATER FOR INJECTION 1 100ML.BAG IVPB SCH (11:10)
--- NOTE | 2024-04-30 11:18 | CT ---
EXAMINATION TYPE: CT brain wo con DATE OF EXAM: 04/30/2024 10:38 AM COMPARISON: 01/10/2024 CLINICAL INDICATION: Female, 59 years old with history of confusion, TECHNIQUE: CT of the brain is performed utilizing 3 mm thick sections through the posterior fossa and 3 mm thick sections through the remaining calvarium. Study is performed within 24 hours of arrival to the hospital. Contrast used: mL of , (none if empty) CT DLP: 1068.4 mGycm, Automated exposure control for dose reduction was used. FINDINGS: There is a prior right temporal parietal craniotomy. No abnormal hyperdensity is present to suggest an acute intracranial hemorrhage. No mass lesion is evident. No acute infarcts are evident. Ventricles and sulci are appropriate for the patient age. Paranasal sinuses and mastoid air cells within the [id number] are clear. X line exam appears stabl e from comparison IMPRESSION: 1. No acute intracranial process. Follow up MRI can be performed as clinically indicated. [facility], , 04/30/2024 11:16 AM
[2024-04-30 11:20] LABS: ABG Base Excess 8.3 mmol/L; ABG HCO3 31 mmol/L (21-25); ABG Oxygen Saturation 91.1 % (94-97); ABG PCO2 34 mmHg (35-45); ABG TCO2 32 mmol/L (19-24); Allen Test Performed? Yes
[2024-04-30 11:29] LABS: ABG PH 7.57 (7.35-7.45); ABG PO2 54 mmHg (83-108)
[2024-04-30] MEDS: SPIRONOLACTONE 25 MG TAB PO SCH (12:05)
[2024-04-30] MEDS: CITALOPRAM HYDROBROMIDE 20 MG TAB PO SCH (12:05)
[2024-04-30] MEDS: LACTULOSE 200 GM/300 ML (FROM 1/2 GAL JUG) RECTAL SCH (12:49)
--- NOTE | 2024-04-30 14:00 | P.PN ---
Subjective Progress Note Date: 04/30/24 Principal diagnosis: Hospital course: Patient is a 59-year-old female with past medical history of COPD, CHF, liver failure and ascites presented to the ER with shortness of breath. The patient mentions her symptoms started 2 days ago. Her shortness of breath and fatigue have been worsening since the past couple of days. She also endorses significan t dyspnea with exertion. It is associated with occasional cough as well as some congestion without sputum production. Additionally she also mentions of having abdominal distention. She has had paracentesis twice previously for ascites. She is currently undergoing rehab at [facility] for cocaine use. Moreover she mentions being at [facility] a few days ago for C. difficile colitis and was treated with oral vancomycin. Denies fever, chills, dysuria, hematuria, melena,, hematochezia. ED documentation reviewed. In the ED she was treated with aspirin 325 mg, calcium carbonate 1000 mg and Lasix 20 mg. Vitals on admission T 99.2 F, ID 103 bpm, RR 20, BP 106/72, O2 sat 96% on room air EKG independently interpreted as sinus tachycardia, rate 103 bpm, QTc 396 ms Chest x-ray shows pulmonary vascular prominence correlate for pulmonary edema Chest CTA shows no evidence of pulmonary embolism, mild pulmonary edema. Hepatic cirrhosis with evidence of portal hypertension and moderate to large ascites. The left upper lobe pulmonary nodule near the aortic arch is indeterminate measuring up to 10 mm. Elevated right diaphragm. Cholelithiasis Labs on admission show hemoglobin 10.2, MCV 103.8, platelet count 57, PT 16.3, INR 1.6, APTT 31.6, sodium 141, total bilirubin 2.4, AST 47, ALT 40 Troponin I 0.012, proBNP 203, D-dimer 3.94 Respiratory panel negative 04/30/24: Patient seen and examined at bedside today. Patient had diarrhea yesterday, no diarrhea reported today. Today she became non responsive and her oxygen requirement increased from 2 to 3L. Labs today show hemoglobin 10.3, MCV 104.5, marked macrocytosis, potassium 3.3, bicarb 31, total bili 22.9, AST 58, ALT 41, ALP 171, ammonia 124. ABG shows pH 7.57, pCO2 34, pO2 54. CT brain without contrast shows no acute intracranial process. Review of systems: Pertinent positives and negatives as discussed in HPI, a complete review of systems was performed and all other systems are negative. Vitals: Signs Reviewed Physical examination: General: drowsy and non responsive, appears at stated age Derm: warm, dry, intact Head: atraumatic, normocephalic, symmetric Eyes: EOMI, anicteric sclera Mouth: no lip lesion, mucus membranes moist Cardiovascular: S1 S2 reg, no murmur Lungs: CTA bilateral, no rhonchi, no rales, no accessory muscle use Abdominal: soft, non-tender to palpataion Extremities: No cyanosis, clubbing, or pedal edema. Neuro: Unable to assess Assessment/Plan: Patient is a 59-year-old female with past medical history of CHF, COPD, hypertension and ascites who presented with shortness of breath. She has been admitted for ascites and got a paracentesis on 04/29/24, 2.5L was removed. She continues to be on diuretics. Today she has acute metabolic encephalopathy and acute hypoxic respiratory failure. CT brain shows no acute process. She has been started on lactulose rectally. #. Ascites, due to cirrhosis secondary to alcohol vs Hepatitis C #. Acute metabolic encephalopathy,hepatic encephalopathy -Labs on admission show total bilirubin 2.4, AST 47, ALT 40, PT 16.3, INR 1.6, APTT 31.6, D-dimer 3.94, -Chest CTA shows no evidence of pulmonary embolism, mild pulmonary edema. Hepatic cirrhosis with evidence of portal hypertension and moderate to large ascites. The left upper lobe pulmonary nodule near the aortic arch is indeterminate measuring up to 10 mm. Elevated right diaphragm. Cholelithiasis -Ultrasound guided Paracentesis on 04/29/24, 2.5L was removed -Ammonia 124 -CT brain without contrast shows no acute intracranial process. -Started lactulose 200 gm rectal Q6HR -Continue IV lasix 20 mg BID -Continue Aldactone 25 mg PO daily #. Acute hypoxic respiratory failure #. Pulmonary edema on CXR -O2 increased to 3L via nasal cannula, was saturating at 94% on 2L -Continue Albuterol 2.5 mg QID PRN -Continue IV lasix 20 mg BID -Continue Aldactone 25 mg PO daily -Repeat Chest xray ordered -Pulmnology consulted #. Hypokalemia -K 3.3 -IV Potassium chloride 20 meq replaced today #. Heartburn -Continue Tums 500 mg PO TID ID #. Neuropathy -Continue Gabapentin 600 mg PO BID PRN #. Anxiety/depression -Continue home meds buspirone 15 mg p.o. 3 times daily as needed, citalopram 40 mg p.o. daily, trazodone 50 mg p.o. at bedtime F: None E: Replete as required N: Heart healthy diet A: Bedrest DVT prophylaxis: SCD GI prophylaxis: Pantoprazole 40 mg IVP daily Attestation I have seen and examined this patient with my resident , discussed the same with the resident/DAYRON, and agree with the dictator's assessment and plan as written Dr. Higinio danielson Objective - Vital Signs Vital signs: Vital Signs Temp 98.1 F 04/29/24 20:01 Pulse 90 04/30/24 03:19 Resp 18 04/30/24 03:19 BP 101/64 04/30/24 03:19 Pulse Ox 92 L 04/30/24 03:19 FiO2 Intake & Output 04/29/24 04/30/24 04/30/24 18:59 06:59 18:59 Intake Total 730 550 Output Total 700 Balance 730 -150 Weight 51.4 kg 50 kg Intake: IV 20 10 Invasive Line 1 20 10 Oral 710 540 Output: Urine 700 Other: Voiding Method External Catheter External Catheter # Voids 1 # Bowel Movements 1 1 - Labs CBC & Chem 7: 05/01/24 06:04 05/01/24 06:04 Labs: Abnormal Lab Results - Last 24 Hours (Table) 04/30/24 Range/Units 06:50 RBC 2.94 L (3.80-5.40) m/uL Hgb 10.3 L (11.4-16.0) gm/dL Hct 30.7 L (34.0-46.0) % MCV 104.5 H (80.0-100.0) fL RDW 17.9 H (11.5-15.5) % Plt Count 48 L (150-450) k/uL Macrocytosis Marked A
[2024-04-30] MEDS: PANTOPRAZOLE 40 MG/10 ML VIAL IVP SCH (14:52)
--- NOTE | 2024-04-30 15:51 | P.CNPUL ---
History of Present Illness Consult date: 04/30/24 Requesting physician: Hiignio Frank Reason for consult: hypoxemia, abnormal CXR/CT Chief complaint: Shortness of breath, fatigue History of present illness: This is a 59-year-old female patient who appears older than her stated age with a history of congestive heart failure, chronic obstructive pulmonary disease, chronic and ongoing tobacco dependence, hypertension, chronic alcohol abuse, IV drug abuse, hepatitis C, recently at [facility] for cocaine and methadone abuse. She was here back in December with abdominal pain and found to have significant ascites secondary to cirrhosis. She also had acute metabolic encephalopathy due to hyperammonia at that time. She presented here to the emergency room on April 28, 2024 with shortness of breath, dyspnea and fatigue for 2 days prior. Chest x-ray reveals evidence of pulmonary vascular congestion. Yesterday she did undergo an ultrasound-guided paracentesis with 2.5 L of straw-colored fluid removed. She was having altered mental status and a CT scan of the brain revealed no acute intracranial process. Arterial blood gases revealed a PaO2 of 54, pCO2 of 34 and a pH of 7.57 on 28% FiO2. We are consulted for hypoxemia. She is seen today on the selective care unit. She is quite obtunded. Difficult to arouse. She is maintaining O2 saturations in the mid 90s on 3 L/min per nasal cannula. She is afebrile. Hemodynamically stable. Her ammonia level is 124. Count 4.8. Globin 10.3. Platelets 48,000. Sodium 140. Potassium 3.3. Bicarb 31. BUN 15. Creatinine 0.59. Glucose 103. AST 58. ALT 41. Alk phos 171. Viral screen was negative. proBNP 203. Review of Systems ROS unobtainable: due to mental status Past Medical History Past Medical History: Heart Failure, COPD, Hypertension, Liver Disease Additional Past Medical History / Comment(s): hep C, drug abuse History of Any Multi-Drug Resistant Organisms: MRSA Date of last positivie culture/infection: 1999 MDRO Source:: skull Past Surgical History: Orthopedic Surgery Additional Past Surgical History / Comment(s): C1C2 fusion. Fusion thoracic spine. Brain bleed sx Past Anesthesia/Blood Transfusion Reactions: No Reported Reaction Past Psychological History: PTSD Smoking Status: Current every day smoker Past Alcohol Use History: Occasional Past Drug Use History: Cocaine, Heroin, Opiates, Prescription Drug Abuse Medications and Allergies Home Medications Medication Instructions Recorded Confirmed Type Albuterol Sulfate [Ventolin HFA] 1 - 2 puff INHALATION RT-QID PRN 01/05/24 04/28/24 History Calcium Phos/D3/Magnesium/Zinc 1 tab PO TID PRN 01/05/24 04/28/24 History [Bepifty-Jnu-Ecto-Vitamin D3] Citalopram Hydrobromide [CeleXA] 40 mg PO DAILY 01/05/24 04/28/24 History Ibuprofen [Motrin Ib] 600 mg PO Q6H PRN 01/05/24 04/28/24 History Multivitamins, Thera [Multivitamin 1 tab PO DAILY 01/05/24 04/28/24 History (formulary)] Thiamine [Vitamin B-1] 100 mg PO DAILY 01/05/24 04/28/24 History ondansetron HCL [Zofran] 8 mg PO Q6H PRN 01/05/24 04/28/24 History Mylanta Regular Strength 30 ml PO Q4H PRN 01/10/24 04/28/24 History Chlorpheniramine Maleate 4 mg PO Q4H PRN 04/28/24 04/28/24 History [Chlor-Trimeton] Docusate [Colace] 100 mg PO BID PRN 04/28/24 04/28/24 History Gabapentin 600 mg PO BID PRN 04/28/24 04/28/24 History busPIRone HCL 15 mg PO TID PRN 04/28/24 04/28/24 History traZODone HCL [Desyrel] 50 mg PO HS 04/28/24 04/28/24 History Allergies Allergy/AdvReac Type Severity Reaction Status Date / Time levofloxacin [From Levaquin] Allergy Rash/Hives Verified 04/28/24 18:23 tetracycline Allergy Rash/Hives Verified 04/28/24 18:23 Physical Exam Vitals: Vital Signs Temp Pulse Resp BP Pulse Ox 04/30/24 14:56 97.8 F 91 18 122/81 95 04/30/24 13:00 89 04/30/24 11:08 98.1 F 89 18 107/40 94 L 04/30/24 09:03 80 04/30/24 09:02 97.7 F 80 18 108/62 95 04/30/24 03:19 90 18 101/64 92 L 04/29/24 23:24 92 16 106/69 96 04/29/24 20:01 98.1 F 85 18 100/59 96 04/29/24 15:57 98.3 F 99 16 102/69 95 Intake and Output 04/30/24 04/30/24 04/30/24 06:59 14:59 22:59 Intake Total 540 Output Total 700 0 Balance -160 0 Intake: Oral 540 Output: Gastric Drainage 0 Urine 700 0 Stool 0 Urine/Stool Mix 0 Emesis 0 Oral Regurgitation 0 Other 0 Other: Voiding Method External Catheter External Catheter # Voids 1 # Bowel Movements 1 2 Weight 50 kg GENERAL EXAM: Obtunded, difficult to arouse 59-year-old female on 3 L nasal cannula. HEAD: Normocephalic. EYES: Normal reaction of pupils, equal size. NOSE: Clear with pink turbinates. THROAT: No erythema or exudates. NECK: No masses, no JVD. CHEST: No chest wall deformity. LUNGS: Equal air entry with crackles to bilateral bases. CVS: S1 and S2 normal with no audible murmur, regular rhythm. ABDOMEN: Distention, hepatomegaly, normal bowel sounds, no guarding or rigidity. SPINE: No scoliosis or deformity SKIN: No rashes CENTRAL NERVOUS SYSTEM: Obtunded, tone is normal in all 4 extremities. EXTREMITIES: There is no peripheral edema. No clubbing, no cyanosis. Peripher al pulses are intact. Results - Laboratory Findings CBC and BMP: 04/30/24 06:50 04/30/24 09:52 ABG ABG pH 7.57 (7.35-7.45) H* 04/30/24 10:04 ABG pCO2 34 mmHg (35-45) L 04/30/24 10:04 ABG pO2 54 mmHg (83-108) L* 04/30/24 10:04 ABG O2 Saturation 91.1 % (94-97) L 04/30/24 10:04 PT/INR, D-dimer PT 16.3 sec (10.0-12.5) H 04/28/24 18:27 INR 1.6 (<1.2) H 04/28/24 18:27 D-Dimer 3.94 mg/L FEU (<0.60) H 04/28/24 18:27 Abnormal lab findings: Abnormal Labs 04/28/24 04/28/24 04/28/24 18:27 18:27 18:27 RBC 2.94 L Hgb 10.2 L Hct 30.5 L MCV 103.8 H RDW 18.2 H Plt Count 57 L Lymphocytes # 0.5 L Macrocytosis PT 16.3 H INR 1.6 H APTT 31.6 H D-Dimer 3.94 H ABG pH ABG pCO2 ABG pO2 ABG HCO3 ABG Total CO2 ABG O2 Saturation Hemoglobin Potassium Chloride 111 H Carbon Dioxide Creatinine 0.46 L Glucose 103 H Calcium Total Bilirubin 2.4 H AST 47 H ALT 40 H Alkaline Phosphatase Ammonia Total Protein 6.0 L Albumin 3.2 L 04/30/24 04/30/24 04/30/24 06:50 06:50 09:52 RBC 2.94 L Hgb 10.3 L Hct 30.7 L MCV 104.5 H RDW 17.9 H Plt Count 48 L Lymphocytes # Macrocytosis Marked A PT INR APTT D-Dimer ABG pH ABG pCO2 ABG pO2 ABG HCO3 ABG Total CO2 ABG O2 Saturation Hemoglobin Potassium 3.3 L 3.3 L Chloride Carbon Dioxide 31 H 31 H Creatinine Glucose 103 H Calcium 7.8 L 8.2 L Total Bilirubin 2.9 H AST 58 H ALT 41 H Alkaline Phosphatase 171 H Ammonia Total Protein 6.1 L Albumin 3.1 L 04/30/24 04/30/24 09:52 10:04 RBC Hgb Hct MCV RDW Plt Count Lymphocytes # Macrocytosis PT INR APTT D-Dimer ABG pH 7.57 H* ABG pCO2 34 L ABG pO2 54 L* ABG HCO3 31 H ABG Total CO2 32 H ABG O2 Saturation 91.1 L Hemoglobin 10.7 L Potassium Chloride Carbon Dioxide Creatinine Glucose Calcium Total Bilirubin AST ALT Alkaline Phosphatase Ammonia 124 H Total Protein Albumin - Diagnostic Findings Chest x-ray: image reviewed Assessment and Plan Assessment: Altered mental status secondary to hyperammonemia secondary to alcoholic liver cirrhosis Acute hypoxemic respiratory failure secondary to above Thrombocytopenia secondary to above Coagulopathy secondary to above Transaminitis secondary to above History of alcohol abuse History of polysubstance abuse including cocaine, heroin, opiates, prescription medications Chronic and ongoing tobacco dependence Hypertension Congestive heart failure Plan: The patient was seen and evaluated Imaging, labs and medications reviewed The patient is obtunded, transferred to the ICU Obtain a urine drug screen Insert a nasogastric tube Add lactulose Rifaximin if available Continue IV diuretics Titrate the FiO2 as tolerated We will continue to follow and make further recommendations based on her clinical status I have personally seen and examined the patient, performed the documentation and the assessment and plan as written. Number of minutes spent on the visit: 20 Dictation was produced using [employer] dictation software. Please excuse any grammatical, word or spelling errors.
[2024-04-30 16:38] LABS: Glucose,Whole Blood 91 mg/dL (70-110)
[2024-04-30] MEDS: LACTULOSE 20 GM/30 ML CUP PO SCH (17:41)
[2024-05-01] MEDS: LORazepam 1 MG TAB PO STA (00:39)
[2024-05-01 06:15] LABS: Anisocytosis Slight; HGB 9.9 gm/dL (11.4-16.0); Hypochromasia Slight; MCH 34.3 pg (25.0-35.0); MCHC 32.8 g/dL (31.0-37.0); MCV 104.5 fL (80.0-100.0); Macrocytosis Marked; RBC 2.87 m/uL (3.80-5.40); RDW 17.8 % (11.5-15.5); WBC 5.6 k/uL (3.8-10.6)
[2024-05-01 06:32] LABS: African American GFR (CKD) >90 (>60 ml/min/1.73 sqM); Anion Gap 4 mmol/L; Blood Urea Nitrogen 17 mg/dL (7-17); Calcium 7.8 mg/dL (8.4-10.2); Carbon Dioxide 28 mmol/L (22-30); Chloride 105 mmol/L (98-107); Glucose 97 mg/dL (74-99); Non-African American GFR(CKD) >90 (>60 ml/min/1.73 sqM); Potassium 2.8 mmol/L (3.5-5.1); Sodium 137 mmol/L (137-145)
[2024-05-01] MEDS ORDERED: Potassium Replacement Protocol 1 EACH MISC MISCELLANE PRN (06:33)
[2024-05-01 06:51] LABS: Platelet Count 48 k/uL (150-450)
[2024-05-01] MEDS: POTASSIUM CHLORIDE ER 20 MEQ TAB.ER PO SCH (06:52)
[2024-05-01 07:08] LABS: Amphetamine Screen,Urine Not Detected (NotDetected); Barbiturate Screen,Urine Not Detected (NotDetected); Benzodiazepines Screen,Urine Detected (NotDetected); Cocaine Screen,Urine Not Detected (NotDetected); Methadone Screen, Urine Not Detected (NotDetected); Opiate Screen,Urine Not Detected (NotDetected); Oxycodone Screen, Urine Not Detected (NotDetected); Phencyclidine Screen,Urine Not Detected (NotDetected); Tricyclic Antidepressant,Urine Not Detected (NotDetected); Urn Cannabinoid Scrn Not Detected (NotDetected)
--- NOTE | 2024-05-01 07:55 | XR ---
EXAMINATION TYPE: XR chest 1V portable DATE OF EXAM: 05/01/2024 6:33 AM COMPARISON: 04/28/2024 CLINICAL INDICATION: Female, 59 years old with history of shortness of breath, TECHNIQUE: XR chest 1V portable view(s) obtained. FINDINGS: The heart size is normal. The pulmonary vasculature is mildly prominent. Mild diffuse alveolar infiltrate is present. IMPRESSION: 1. Mild pulmonary edema [facility], , 05/01/2024 7:53 AM
[2024-05-01] MEDS: POTASSIUM CHLORIDE 10 MEQ in WATER FOR INJECTION 1 100ML.BAG IVPB SCH ×2 (11:07→15:01)
--- NOTE | 2024-05-01 11:11 | P.PN ---
Subjective Progress Note Date: 05/01/24 Principal diagnosis: Acute hepatic encephalopathy with acute hypoxic respiratory failure and liver cirrhosis. This is a 59-year-old female patient who appears older than her stated age with a history of congestive heart failure, chronic obstructive pulmonary disease, chronic and ongoing tobacco dependence, hypertension, chronic alcohol abuse, IV drug abuse, hepatitis C, recently at [facility] for cocaine and methadone abuse. She was here back in December with abdominal pain and found to have significant ascites secondary to cirrhosis. She also had acute metabolic encephalopathy due to hyperammonia at that time. She presented here to the emergency room on April 28, 2024 with shortness of breath, dyspnea and fatigue for 2 days prior. Chest x-ray reveals evidence of pulmonary vascular congestion. Yesterday she did undergo an ultrasound-guided paracentesis with 2.5 L of straw-colored fluid removed. She was having altered mental status and a CT scan of the brain revealed no acute intracranial process. Arterial blood gases revealed a PaO2 of 54, pCO2 of 34 and a pH of 7.57 on 28% FiO2. We are consulted for hypoxemia. She is seen today on the selective care unit. She is quite obtunded. Difficult to arouse. She is maintaining O2 saturations in the mid 90s on 3 L/min per nasal cannula. She is afebrile. Hemodynamically stable. Her ammonia level is 124. Count 4.8. Globin 10.3. Platelets 48,000. Sodium 140. Potassium 3.3. Bicarb 31. BUN 15. Creatinine 0.59. Glucose 103. AST 58. ALT 41. Alk phos 171. Viral screen was negative. proBNP 203. Was evaluated today on 05/01/2024, patient was transferred to the ICU yesterday, mostly because of her worsening hepatic encephalopathy and significantly elevated ammonia level. Patient is now on lactulose orally, she is definitely more awake today compared to yesterday, arousable, not back to baseline but definitely arousable and able to take medications orally able to follow instructions, and her ammonia level is down to 54. Hence I plan to transfer the patient back out of the ICU to medical floor.Patient is on 3 L nasal cannula with O2 sat of 95%. WBC count is 5.6 hemoglobin 9.9 basic metabolic profile is normal except for low potassium of 2.8 being addressed accordingly ABG yesterday showed a pO2 of 54 pCO2 34 pH of 7.57, and this was on 28% FiO2. Chest x-ray th morning showed minimal pulmonary vascular congestion patient is already on diuretics for Objective - Vital Signs Vital signs: Vital Signs Temp 99.5 F 05/01/24 08:00 Pulse 88 05/01/24 10:00 Resp 20 05/01/24 10:00 BP 94/55 05/01/24 10:00 Pulse Ox 94 L 05/01/24 10:00 FiO2 Intake & Output 04/30/24 05/01/24 05/01/24 18:59 06:59 18:59 Intake Total 1580 Output Total 600 1400 80 Balance -600 180 -80 Intake: Oral 1580 Output: Gastric Drainage 0 Urine 600 400 80 Stool 0 Urine/Stool Mix 0 1000 Emesis 0 Oral Regurgitation 0 Other 0 Other: Voiding Method External Catheter External Catheter Indwelling Catheter # Voids 1 0 # Bowel Movements 2 1 - Exam GENERAL EXAM: Arousable, follows instructions, on 3 L nasal cannula, not in distress. HEAD: Normocephalic. EYES: Normal reaction of pupils, equal size. NOSE: Clear with pink turbinates. THROAT: No erythema or exudates. NECK: No masses, no JVD. CHEST: No chest wall deformity. LUNGS: Equal air entry with crackles to bilateral bases. CVS: S1 and S2 normal with no audible murmur, regular rhythm. ABDOMEN: Positive ascites, no guarding, positive bowel sounds. SKIN: No rashes CENTRAL NERVOUS SYSTEM: Currently more awake today, no gross neurological deficit, patient continues to have facial droop, most likely secondary to old CV A EXTREMITIES: No clubbing edema or cyanosis - Labs CBC & Chem 7: 05/01/24 06:04 05/01/24 06:04 Labs: Abnormal Lab Results - Last 24 Hours (Table) 04/30/24 05/01/24 05/01/24 Range/Units 10:04 06:04 06:04 RBC 2.87 L (3.80-5.40) m/uL Hgb 9.9 L (11.4-16.0) gm/dL Hct 30.0 L (34.0-46.0) % MCV 104.5 H (80.0-100.0) fL RDW 17.8 H (11.5-15.5) % Plt Count 48 L (150-450) k/uL Macrocytosis Marked A ABG pH 7.57 H* (7.35-7.45) ABG pCO2 34 L (35-45) mmHg ABG pO2 54 L* (83-108) mmHg ABG HCO3 31 H (21-25) mmol/L ABG Total CO2 32 H (19-24) mmol/L ABG O2 Saturation 91.1 L (94-97) % Hemoglobin 10.7 L (11.4-16.0) gm/dL Potassium 2.8 L (3.5-5.1) mmol/L Calcium 7.8 L (8.4-10.2) mg/dL Ammonia (<30) umol/L U Benzodiazepines Scrn (NotDetected) 05/01/24 05/01/24 Range/Units 06:20 06:41 RBC (3.80-5.40) m/uL Hgb (11.4-16.0) gm/dL Hct (34.0-46.0) % MCV (80.0-100.0) fL RDW (11.5-15.5) % Plt Count (150-450) k/uL Macrocytosis ABG pH (7.35-7.45) ABG pCO2 (35-45) mmHg ABG pO2 (83-108) mmHg ABG HCO3 (21-25) mmol/L ABG Total CO2 (19-24) mmol/L ABG O2 Saturation (94-97) % Hemoglobin (11.4-16.0) gm/dL Potassium (3.5-5.1) mmol/L Calcium (8.4-10.2) mg/dL Ammonia 57 H (<30) umol/L U Benzodiazepines Scrn Detected H (NotDetected) Assessment and Plan Assessment: Impression: Acute hepatic encephalopathy with altered mental status Altered mental status secondary to hyperammonemia secondary to alcoholic liver cirrhosis Acute hypoxemic respiratory failure secondary to above Thrombocytopenia secondary to above Coagulopathy secondary to above Transaminitis secondary to aboveHistory of alcohol abuse History of polysubstance abuse including cocaine, heroin, opiates, prescription medications Chronic and ongoing tobacco dependence Hypertension Chronic diastolic congestive heart failure, preserved ejection fraction of 60 to 65% on last echo Recommendation: Continue lactulose Patient does not require rifaximin considering the improvement noted with l actulose Continue diuretics Continue oxygen and titrate accordingly Continue to monitor electrolytes and renal profile and address accordingly specially her low potassium Could consider trending the patient back to medical surgical floor Will continue to follow Time with Patient: Less than 30
--- NOTE | 2024-05-01 13:30 | P.PN ---
Subjective Progress Note Date: 05/01/24 Principal diagnosis: Hospital course: Patient is a 59-year-old female with past medical history of COPD, CHF, liver failure and ascites presented to the ER with shortness of breath. The patient mentions her symptoms started 2 days ago. Her shortness of breath and fatigue have been worsening since the past couple of days. She also endorses significan t dyspnea with exertion. It is associated with occasional cough as well as some congestion without sputum production. Additionally she also mentions of having abdominal distention. She has had paracentesis twice previously for ascites. She is currently undergoing rehab at [place] for cocaine use. Moreover she mentions being at [facility] a few days ago for C. difficile colitis and was treated with oral vancomycin. Denies fever, chills, dysuria, hematuria, melena,, hematochezia. ED documentation reviewed. In the ED she was treated with aspirin 325 mg, calcium carbonate 1000 mg and Lasix 20 mg. Vitals on admission T 99.2 F, [place] 103 bpm, RR 20, BP 106/72, O2 sat 96% on room air EKG independently interpreted as sinus tachycardia, rate 103 bpm, QTc 396 ms Chest x-ray shows pulmonary vascular prominence correlate for pulmonary edema Chest CTA shows no evidence of pulmonary embolism, mild pulmonary edema. Hepatic cirrhosis with evidence of portal hypertension and moderate to large ascites. The left upper lobe pulmonary nodule near the aortic arch is indeterminate measuring up to 10 mm. Elevated right diaphragm. Cholelithiasis Labs on admission show hemoglobin 10.2, MCV 103.8, platelet count 57, PT 16.3, INR 1.6, APTT 31.6, sodium 141, total bilirubin 2.4, AST 47, ALT 40 Troponin I 0.012, proBNP 203, D-dimer 3.94 Respiratory panel negative 04/30/24: Patient seen and examined at bedside today. Patient had diarrhea yesterday, no diarrhea reported today. Today she became non responsive and her oxygen requirement increased from 2 to 3L. Labs today show hemoglobin 10.3, MCV 104.5, marked macrocytosis, potassium 3.3, bicarb 31, total bili 22.9, AST 58, ALT 41, ALP 171, ammonia 124. ABG shows pH 7.57, pCO2 34, pO2 54. CT brain without contrast shows no acute intracranial process. 05/01. Patient seen and examined. Blood work done today showed WBC 5.6, hemoglobin 9.9, platelet count 48 sodium 139, potassium 2.8, BUN 17, creatinine 0.64. Potassium placement ordered. Patient had to be transferred to ICU yesterday because of confusion. Currently patient is alert, able to take medication orally. Review of systems: Pertinent positives and negatives as discussed in HPI, a complete review of systems was performed and all other systems are negative. Vitals: Signs Reviewed Physical examination: General: Alert Derm: warm, dry, intact Head: atraumatic, normocephalic, symmetric Eyes: EOMI, anicteric sclera Mouth: no lip lesion, mucus membranes moist Cardiovascular: S1 S2 reg, no murmur Lungs: CTA bilateral, no rhonchi, no rales, no accessory muscle use Abdominal: soft, non-tender to palpataion Extremities: No cyanosis, clubbing, or pedal edema. Neuro: Unable to assess Assessment/Plan: Patient is a 59-year-old female with past medical history of CHF, COPD, hypertension and ascites who presented with shortness of breath. She has been admitted for ascites and got a paracentesis on 04/29/24, 2.5L was removed. She continues to be on diuretics. Today she has acute metabolic encephalopathy and acute hypoxic respiratory failure. CT brain shows no acute process. She has been started on lactulose rectally. #. Ascites, due to cirrhosis secondary to alcohol vs Hepatitis C #. Acute metabolic encephalopathy,hepatic encephalopathy -Labs on admission show total bilirubin 2.4, AST 47, ALT 40, PT 16.3, INR 1.6, APTT 31.6, D-dimer 3.94, -Chest CTA shows no evidence of pulmonary embolism, mild pulmonary edema. Hepatic cirrhosis with evidence of portal hypertension and moderate to large ascites. The left upper lobe pulmonary nodule near the aortic arch is indeterminate measuring up to 10 mm. Elevated right diaphragm. Cholelithiasis -Ultrasound guided Paracentesis on 04/29/24, 2.5L was removed -CT brain without contrast shows no acute intracranial process. Continue lactulose ICU following #. Acute hypoxic respiratory failure #. Pulmonary edema on CXR -O2 increased to 3L via nasal cannula, was saturating at 94% on 2L -Continue Albuterol 2.5 mg QID PRN -Continue IV lasix 20 mg BID -Continue Aldactone 25 mg PO daily Pulmonary following #. Hypokalemia Potassium replacement ordered #. Heartburn -Continue Tums 500 mg PO TID AZ #. Neuropathy -Continue Gabapentin 600 mg PO BID PRN #. Anxiety/depression -Continue home meds buspirone 15 mg p.o. 3 times daily as needed, citalopram 40 mg p.o. daily, trazodone 50 mg p.o. at bedtime Objective - Vital Signs Vital signs: Vital Signs Temp 99.5 F 05/01/24 08:00 Pulse 88 05/01/24 10:00 Resp 20 05/01/24 10:00 BP 94/55 05/01/24 10:00 Pulse Ox 94 L 05/01/24 10:00 FiO2 Intake & Output 04/30/24 05/01/24 05/01/24 18:59 06:59 18:59 Intake Total 1580 Output Total 600 1400 80 Balance -600 180 -80 Intake: Oral 1580 Output: Gastric Drainage 0 Urine 600 400 80 Stool 0 Urine/Stool Mix 0 1000 Emesis 0 Oral Regurgitation 0 Other 0 Other: Voiding Method External Catheter External Catheter Indwelling Catheter # Voids 1 0 # Bowel Movements 2 1 - Labs CBC & Chem 7: 05/01/24 06:04 05/01/24 06:04 Labs: Abnormal Lab Results - Last 24 Hours (Table) 04/30/24 05/01/24 05/01/24 Range/Units 10:04 06:04 06:04 RBC 2.87 L (3.80-5.40) m/uL Hgb 9.9 L (11.4-16.0) gm/dL Hct 30.0 L (34.0-46.0) % MCV 104.5 H (80.0-100.0) fL RDW 17.8 H (11.5-15.5) % Plt Count 48 L (150-450) k/uL Macrocytosis Marked A ABG pH 7.57 H* (7.35-7.45) ABG pCO2 34 L (35-45) mmHg ABG pO2 54 L* (83-108) mmHg ABG HCO3 31 H (21-25) mmol/L ABG Total CO2 32 H (19-24) mmol/L ABG O2 Saturation 91.1 L (94-97) % Hemoglobin 10.7 L (11.4-16.0) gm/dL Potassium 2.8 L (3.5-5.1) mmol/L Calcium 7.8 L (8.4-10.2) mg/dL Ammonia (<30) umol/L U Benzodiazepines Scrn (NotDetected) 05/01/24 05/01/24 Range/Units 06:20 06:41 RBC (3.80-5.40) m/uL Hgb (11.4-16.0) gm/dL Hct (34.0-46.0) % MCV (80.0-100.0) fL RDW (11.5-15.5) % Plt Count (150-450) k/uL Macrocytosis ABG pH (7.35-7.45) ABG pCO2 (35-45) mmHg ABG pO2 (83-108) mmHg ABG HCO3 (21-25) mmol/L ABG Total CO2 (19-24) mmol/L ABG O2 Saturation (94-97) % Hemoglobin (11.4-16.0) gm/dL Potassium (3.5-5.1) mmol/L Calcium (8.4-10.2) mg/dL Ammonia 57 H (<30) umol/L U Benzodiazepines Scrn Detected H (NotDetected)
[2024-05-01] MEDS: ACETAMINOPHEN TAB 325 MG TAB PO PRN (18:32)
[2024-05-01] MEDS: HALOPERIDOL LACTATE 5 MG/ML 1 ML VIAL IVP PRN (19:51)
[2024-05-02 08:16] LABS: Anisocytosis Slight; HCT 31.7 % (34.0-46.0); HGB 10.2 gm/dL (11.4-16.0); Hypochromasia Marked; MCH 33.9 pg (25.0-35.0); MCHC 32.1 g/dL (31.0-37.0); MCV 105.7 fL (80.0-100.0); Macrocytosis Marked; Mean Platelet Volume 10.1; RDW 17.5 % (11.5-15.5); WBC 4.6 k/uL (3.8-10.6)
[2024-05-02 08:22] LABS: Platelet Count 55 k/uL (150-450)
[2024-05-02 08:30] LABS: ALT 38 U/L (4-34); AST 49 U/L (14-36); African American GFR (CKD) >90 (>60 ml/min/1.73 sqM); Albumin 2.8 g/dL (3.5-5.0); Alkaline Phosphatase 148 U/L (38-126); Anion Gap 3 mmol/L; Blood Urea Nitrogen 14 mg/dL (7-17); Calcium 8.2 mg/dL (8.4-10.2); Carbon Dioxide 31 mmol/L (22-30); Chloride 101 mmol/L (98-107); Glucose 220 mg/dL (74-99); Non-African American GFR(CKD) >90 (>60 ml/min/1.73 sqM); Potassium 3.8 mmol/L (3.5-5.1); Sodium 135 mmol/L (137-145); Total Bilirubin 2.5 mg/dL (0.2-1.3); Total Protein 5.7 g/dL (6.3-8.2)
--- NOTE | 2024-05-02 11:57 | P.PN ---
Subjective Progress Note Date: 05/02/24 This is a 59-year-old female patient who appears older than her stated age with a history of congestive heart failure, chronic obstructive pulmonary disease, chronic and ongoing tobacco dependence, hypertension, chronic alcohol abuse, IV drug abuse, hepatitis C, recently at [facility] for cocaine and methadone abuse. She was here back in December with abdominal pain and found to have significant ascites secondary to cirrhosis. She also had acute metabolic encephalopathy due to hyperammonia at that time. She presented here to the emergency room on April 28, 2024 with shortness of breath, dyspnea and fatigue for 2 days prior. Chest x-ray reveals evidence of pulmonary vascular congestion. Yesterday she did undergo an ultrasound-guided paracentesis with 2.5 L of straw-colored fluid removed. She was having altered mental status and a CT scan of the brain revealed no acute intracranial process. Arterial blood gases revealed a PaO2 of 54, pCO2 of 34 and a pH of 7.57 on 28% FiO2. We are consulted for hypoxemia. She is seen today on the selective care unit. She is quite obtunded. Difficult to arouse. She is maintaining O2 saturations in the mid 90s on 3 L/min per nasal cannula. She is afebrile. Hemodynamically stable. Her ammonia level is 124. Count 4.8. Globin 10.3. Platelets 48,000. Sodium 140. Potassium 3.3. Bicarb 31. BUN 15. Creatinine 0.59. Glucose 103. AST 58. ALT 41. Alk phos 171. Viral screen was negative. proBNP 203. Was evaluated today on 05/01/2024, patient was transferred to the ICU yesterday, mostly because of her worsening hepatic encephalopathy and significantly elevated ammonia level. Patient is now on lactulose orally, she is definitely more awake today compared to yesterday, arousable, not back to baseline but definitely arousable and able to take medications orally able to follow instructions, and her ammonia level is down to 54. Hence I plan to transfer the patient back out of the ICU to medical floor.Patient is on 3 L nasal cannula with O2 sat of 95%. WBC count is 5.6 hemoglobin 9.9 basic metabolic profile is normal except for low potassium of 2.8 being addressed accordingly ABG yesterday showed a pO2 of 54 pCO2 34 pH of 7.57, and this was on 28% FiO2. Chest x-ray this morning showed minimal pulmonary vascular congestion patient is already on diuretics The patient is seen today May 02, 2020 for follow-up in the intensive care unit. She is currently sitting up in bed. Awake and alert in no acute distress. Maintaining O2 saturations in the 90s on room air. No IV fluids. She is afebrile. Hemodynamically stable. Urine culture positive for gram- negative bacilli. White count 4.6. Hemoglobin 10.2. Platelets 55,000. Sodium 135. Potassium 3.8. Bicarb 31. BUN 14. Creatinine 0.6. Glucose 148. She remains on bronchodilators. Continued on IV diuretics. Haldol for agitation. Remains on lactulose. Her ammonia level went back up to 104 today. Objective - Vital Signs Vital signs: Vital Signs Temp 98.6 F 05/02/24 08:00 Pulse 90 05/02/24 08:00 Resp 16 05/02/24 08:00 BP 111/67 05/02/24 08:00 Pulse Ox 93 L 05/02/24 08:00 FiO2 Intake & Output 05/01/24 05/02/24 05/02/24 18:59 06:59 18:59 Intake Total 600 450 10 Output Total 225 865 125 Balance 375 -415 -115 Intake: IV 10 Invasive Line 2 10 Intake, IV Titration 600 Amount Potassium Chloride 10 meq 600 In Water For Injection 1 100ml.bag @ 100 mls/hr IVPB Q1H [facility] Rx#: [id number] Oral 450 Output: Urine 225 865 125 Other: Voiding Method Indwelling Catheter Indwelling Catheter Indwelling Catheter # Bowel Movements 1 0 - Exam GENERAL EXAM: Alert, 59-year-old female, appears older than stated age, on room air, comfortable in no apparent distress. HEAD: Normocephalic. Facial droop from previous CVA. EYES: Normal reaction of pupils, equal size. NOSE: Clear with pink turbinates. THROAT: No erythema or exudates. Edentulous. NECK: No masses, no JVD. CHEST: No chest wall deformity. LUNGS: Equal air entry with no crackles, wheeze, rhonchi or dullness. CVS: S1 and S2 normal with an audible murmur, regular rhythm. ABDOMEN: No hepatosplenomegaly, normal bowel sounds, no guarding or rigidity. SPINE: No scoliosis or deformity SKIN: No rashes CENTRAL NERVOUS SYSTEM: No focal deficits, tone is normal in all 4 extremities. EXTREMITIES: There is no peripheral edema. No clubbing, no cyanosis. Peripheral pulses are intact. - Labs CBC & Chem 7: 05/02/24 07:41 05/02/24 07:41 Labs: Abnormal Lab Results - Last 24 Hours (Table) 05/01/24 05/02/24 05/02/24 Range/Units 14:03 07:41 07:41 RBC 3.00 L (3.80-5.40) m/uL Hgb 10.2 L (11.4-16.0) gm/dL Hct 31.7 L (34.0-46.0) % MCV 105.7 H (80.0-100.0) fL RDW 17.5 H (11.5-15.5) % Plt Count 55 L (150-450) k/uL Macrocytosis Marked A Sodium 135 L (137-145) mmol/L Potassium 3.4 L (3.5-5.1) mmol/L Carbon Dioxide 31 H (22-30) mmol/L Glucose 220 H (74-99) mg/dL Calcium 8.2 L (8.4-10.2) mg/dL Total Bilirubin 2.5 H (0.2-1.3) mg/dL AST 49 H (14-36) U/L ALT 38 H (4-34) U/L Alkaline Phosphatase 148 H (38-126) U/L Ammonia (<30) umol/L Total Protein 5.7 L (6.3-8.2) g/dL Albumin 2.8 L (3.5-5.0) g/dL 05/02/24 Range/Units 08:09 RBC (3.80-5.40) m/uL Hgb (11.4-16.0) gm/dL Hct (34.0-46.0) % MCV (80.0-100.0) fL RDW (11.5-15.5) % Plt Count (150-450) k/uL Macrocytosis Sodium (137-145) mmol/L Potassium (3.5-5.1) mmol/L Carbon Dioxide (22-30) mmol/L Glucose (74-99) mg/dL Calcium (8.4-10.2) mg/dL Total Bilirubin (0.2-1.3) mg/dL AST (14-36) U/L ALT (4-34) U/L Alkaline Phosphatase (38-126) U/L Ammonia 104 H (<30) umol/L Total Protein (6.3-8.2) g/dL Albumin (3.5-5.0) g/dL Microbiology - Last 24 Hours (Table) 05/01/24 06:20 Urine Culture - Preliminary Urine,Clean Catch Gram Neg Bacilli Assessment and Plan Assessment: Altered mental status secondary to hyperammonemia secondary to alcoholic liver cirrhosis. Improved, awake and alert Acute hypoxemic respiratory failure secondary to above recovered and on room air Thrombocytopenia secondary to above Coagulopathy secondary to above Transaminitis secondary to above History of alcohol abuse History of polysubstance abuse including cocaine, heroin, opiates, prescription medications Chronic and ongoing tobacco dependence Hypertension Congestive heart failure Homelessness Plan: The patient was seen and evaluated Labs and medications reviewed Continue lactulose Continue IV diuretics Haldol for agitation Stable and on room air Transfer out of the ICU We will continue to follow I have personally seen and examined the patient, performed the documentation and the assessment and plan as written. Number of minutes spent on the visit: 10 Dictation was produced using [employer] dictation software. Please excuse any grammatical, word or spelling errors.
[2024-05-02] MEDS: RIFAXIMIN 550 MG TABLET PO SCH (13:58)
--- NOTE | 2024-05-02 14:18 | P.CONS ---
History of Present Illness - Reason for Consult Consult date: 05/02/24 Hepatic encephalopathy Requesting physician: Diana Banda - Chief Complaint Shortness of breath, abdominal distention - History of Present Illness This pleasant 59-year-old female with a past medical history including IV drug use, COPD, heart failure, hypertension and liver disease secondary to hepatitis C who presented to the emergency department on 04/28/2024 with complaints of shortness of breath, dyspnea and fatigue. Patient was noted to have significantly elevated ammonia level and was admitted to the ICU for closer observation for hepatic encephalopathy. She was started on lactulose initially and Xifaxan was added yesterday. Patient states she was diagnosed with hepatitis C 2 to 3 years ago. States she has not had any treatment. She was a heroin addict and quit 8 months ago. States she is still smoking crack. On admission patient's ammonia level was 124, she was started on lactulose 30 g 4 times daily yesterday it was 57. She was started on Xifaxan. Today is 104. She has had 3 bowel movements so far today. She denies any abdominal pain, kayla sea or vomiting. States shortness of breath improved. She had a paracentesis on 04/29/2024 with 2.5 L removed Review of Systems REVIEW OF SYSTEMS: CARDIOPULMONARY: No chest pain or shortness of breath. Gastrointestinal: No abdominal pain. No nausea or vomiting. No hematemesis, coffee-ground emesis. No rectal bleeding, or melena. GENITOURINARY: No dysuria or hematuria. MUSCULOSKELETAL: Reports normal range of motion. SKIN: No rashes. No jaundice. ENDOCRINE: No chills, fevers. No excessive weight gain or loss. No polydipsia or polyuria. PSYCHIATRIC: Unremarkable. NEUROLOGY: No change in mental status. Denies dizziness, headache. ENT: Vision unremarkable. CONSTITUTIONAL: No recent weight loss. No fever, chills, night sweats. Past Medical History Past Medical History: Heart Failure, COPD, Hypertension, Liver Disease Additional Past Medical History / Comment(s): hep C, drug abuse History of Any Multi-Drug Resistant Organisms: MRSA Year Discovered:: 1999 MDRO Source:: skull Past Surgical History: Orthopedic Surgery Additional Past Surgical History / Comment(s): C1C2 fusion. Fusion thoracic spine. Brain bleed sx Past Anesthesia/Blood Transfusion Reactions: No Reported Reaction Past Psychological History: PTSD Smoking Status: Current every day smoker Past Alcohol Use History: Occasional Past Drug Use History: Cocaine, Heroin, Opiates, Prescription Drug Abuse Medications and Allergies Home Medications Medication Instructions Recorded Confirmed Type Albuterol Sulfate [Ventolin HFA] 1 - 2 puff INHALATION RT-QID PRN 01/05/24 04/28/24 History Calcium Phos/D3/Magnesium/Zinc 1 tab PO TID PRN 01/05/24 04/28/24 History [Mhykdle-Cbq-Kmvi-Vitamin D3] Citalopram Hydrobromide [CeleXA] 40 mg PO DAILY 01/05/24 04/28/24 History Ibuprofen [Motrin Ib] 600 mg PO Q6H PRN 01/05/24 04/28/24 History Multivitamins, Thera [Multivitamin 1 tab PO DAILY 01/05/24 04/28/24 History (formulary)] Thiamine [Vitamin B-1] 100 mg PO DAILY 01/05/24 04/28/24 History ondansetron HCL [Zofran] 8 mg PO Q6H PRN 01/05/24 04/28/24 History Mylanta Regular Strength 30 ml PO Q4H PRN 01/10/24 04/28/24 History Chlorpheniramine Maleate 4 mg PO Q4H PRN 04/28/24 04/28/24 History [Chlor-Trimeton] Docusate [Colace] 100 mg PO BID PRN 04/28/24 04/28/24 History Gabapentin 600 mg PO BID PRN 04/28/24 04/28/24 History busPIRone HCL 15 mg PO TID PRN 04/28/24 04/28/24 History traZODone HCL [Desyrel] 50 mg PO HS 04/28/24 04/28/24 History Allergies Allergy/AdvReac Type Severity Reaction Status Date / Time levofloxacin [From Levaquin] Allergy Rash/Hives Verified 04/28/24 18:23 tetracycline Allergy Rash/Hives Verified 04/28/24 18:23 Physical Exam Vitals: Vital Signs Temp Pulse Resp BP Pulse Ox 05/02/24 08:00 98.6 F 90 16 111/67 93 L 05/02/24 04:00 99.2 F 79 99/63 96 05/02/24 03:00 81 93 L 05/02/24 02:00 91 95 05/02/24 01:00 97 95 05/02/24 00:00 98.7 F 105 H 110/63 92 L 05/01/24 23:00 101 H 28 H 91 L 05/01/24 22:00 97 29 H 91 L 05/01/24 21:00 93 20 94 L 05/01/24 20:27 89 27 H 132/80 91 L 05/01/24 20:00 98 24 134/72 91 L 05/01/24 19:00 98 28 H 134/72 92 L 05/01/24 18:00 94 33 H 134/72 96 05/01/24 17:00 94 29 H 134/72 94 L 05/01/24 16:00 99.5 F 95 20 134/72 97 05/01/24 15:00 91 05/01/24 14:00 93 20 05/01/24 13:00 96 20 97/70 93 L Intake and Output 05/01/24 05/02/24 05/02/24 22:59 06:59 14:59 Intake Total 400 450 10 Output Total 185 765 125 Balance 215 -315 -115 Intake: IV 10 Invasive Line 2 10 Intake, IV Titration 400 Amount Potassium Chloride 10 meq 400 In Water For Injection 1 100ml.bag @ 100 mls/hr IVPB Q1H [facility] Rx#: [id number] Oral 450 Output: Urine 185 765 125 Other: Voiding Method Indwelling Catheter Indwelling Catheter Indwelling Catheter # Bowel Movements 1 0 General appearance: The patient is alert, oriented, appears in no acute distress. HET: Head is normocephalic and atraumatic. Conjunctiva pink. Sclera anicteric. Neck: Supple without lymphadenopathy. Trachea midline. Heart: Regular. Lungs: Equal expansion, normal respiratory effort. Abdomen: Soft, nontender, nondistended. Skin: No rashes. No jaundice. Extremities: Normal skin color and turgor. No pedal edema. Neurological: No focal deficits. Alert and oriented x3. Results CBC & Chem 7: 05/02/24 07:41 05/02/24 07:41 Labs: Abnormal Lab Results - Last 24 Hours (Table) 05/01/24 05/02/24 05/02/24 Range/Units 14:03 07:41 07:41 RBC 3.00 L (3.80-5.40) m/uL Hgb 10.2 L (11.4-16.0) gm/dL Hct 31.7 L (34.0-46.0) % MCV 105.7 H (80.0-100.0) fL RDW 17.5 H (11.5-15.5) % Plt Count 55 L (150-450) k/uL Macrocytosis Marked A Sodium 135 L (137-145) mmol/L Potassium 3.4 L (3.5-5.1) mmol/L Carbon Dioxide 31 H (22-30) mmol/L Glucose 220 H (74-99) mg/dL Calcium 8.2 L (8.4-10.2) mg/dL Total Bilirubin 2.5 H (0.2-1.3) mg/dL AST 49 H (14-36) U/L ALT 38 H (4-34) U/L Alkaline Phosphatase 148 H (38-126) U/L Ammonia (<30) umol/L Total Protein 5.7 L (6.3-8.2) g/dL Albumin 2.8 L (3.5-5.0) g/dL 05/02/24 Range/Units 08:09 RBC (3.80-5.40) m/uL Hgb (11.4-16.0) gm/dL Hct (34.0-46.0) % MCV (80.0-100.0) fL RDW (11.5-15.5) % Plt Count (150-450) k/uL Macrocytosis Sodium (137-145) mmol/L Potassium (3.5-5.1) mmol/L Carbon Dioxide (22-30) mmol/L Glucose (74-99) mg/dL Calcium (8.4-10.2) mg/dL Total Bilirubin (0.2-1.3) mg/dL AST (14-36) U/L ALT (4-34) U/L Alkaline Phosphatase (38-126) U/L Ammonia 104 H (<30) umol/L Total Protein (6.3-8.2) g/dL Albumin (3.5-5.0) g/dL Microbiology - Last 24 Hours (Table) 05/01/24 06:20 Urine Culture - Preliminary Urine,Clean Catch Gram Neg Bacilli Comments: Chest CTA reports no evidence of pulmonary embolism. Mild pulmonary edema. Hepatic cirrhosis with evidence of portal hypertension and moderate to large ascites. Left upper lobe pulmonary nodule near the aortic arch is indeterminate measuring up to 10 mm. Elevated right diaphragm cholelithiasis. Assessment and Plan (1) Cirrhosis Narrative/Plan: 59-year-old female with history of IV drug use with underlying liver disease secondary to hepatitis C. Patient denies any treatment as she has been IV drug user and just recently quit a few months ago. Patient was admitted with shortness of breath and abdominal ascites. She was noted to have significantly elevated ammonia level. Started on lactulose and now Xifaxan. Recommend continuing with the lactulose 30 g 3 times daily with titration to have 3-4 bowel movements, continue Xifaxan 550 mg twice daily. Will obtain hepatitis C serologies. Current Visit: No Status: Acute Code(s): K74.60 - UNSPECIFIED CIRRHOSIS OF LIVER SNOMED Code(s): 06822895 (2) Hepatic encephalopathy Current Visit: No Status: Acute Code(s): K76.82 - HEPATIC ENCEPHALOPATHY SNOMED Code(s): 62374557 (3) Ascites Narrative/Plan: Increase Aldactone to 100 mg daily, continue Lasix 40 mg daily Current Visit: Yes Status: Acute Code(s): R18.8 - OTHER ASCITES SNOMED Code(s): 268755000 (4) Hepatitis C Current Visit: No Status: Acute Code(s): B19.20 - UNSPECIFIED VIRAL HEPATITIS C WITHOUT HEPATIC COMA SNOMED Code(s): 08048847 (5) Heroin abuse Current Visit: No Status: Acute Code(s): F11.10 - OPIOID ABUSE, UNCOMPLICATED SNOMED Code(s): 5102871 (6) Hyperammonemia Current Visit: No Status: Acute Code(s): E72.20 - DISORDER OF UREA CYCLE METABOLISM, UNSPECIFIED SNOMED Code(s): 5791192 Plan: 1. Continue symptomatic and supportive care 2. Low-sodium diet 3. Increase spironolactone to 100 mg daily, continue Lasix 40 mg daily 4. Continue lactulose as ordered, titrate to have 3-4 bowel movements daily 5. Continue Xifaxan 550 mg twice daily 6. Hepatitis C serologies ordered 7. Continue abstinence from IV drug use 8. Recommend outpatient follow-up with gastroenterology for hepatitis treatment and liver cirrhosis Thank you for this consultation, we will continue to follow. Dr. Paulina Rodríguez I agree with the dictator's note, documented as a scribe by Sherry Reid.
--- NOTE | 2024-05-02 14:31 | P.PN ---
Subjective Progress Note Date: 05/02/24 Principal diagnosis: Hospital course: Patient is a 59-year-old female with past medical history of COPD, CHF, liver failure and ascites presented to the ER with shortness of breath. The patient mentions her symptoms started 2 days ago. Her shortness of breath and fatigue have been worsening since the past couple of days. She also endorses significan t dyspnea with exertion. It is associated with occasional cough as well as some congestion without sputum production. Additionally she also mentions of having abdominal distention. She has had paracentesis twice previously for ascites. She is currently undergoing rehab at [place] for cocaine use. Moreover she mentions being at [facility] a few days ago for C. difficile colitis and was treated with oral vancomycin. Denies fever, chills, dysuria, hematuria, melena,, hematochezia. ED documentation reviewed. In the ED she was treated with aspirin 325 mg, calcium carbonate 1000 mg and Lasix 20 mg. Vitals on admission T 99.2 F, OR 103 bpm, RR 20, BP 106/72, O2 sat 96% on room air EKG independently interpreted as sinus tachycardia, rate 103 bpm, QTc 396 ms Chest x-ray shows pulmonary vascular prominence correlate for pulmonary edema Chest CTA shows no evidence of pulmonary embolism, mild pulmonary edema. Hepatic cirrhosis with evidence of portal hypertension and moderate to large ascites. The left upper lobe pulmonary nodule near the aortic arch is indeterminate measuring up to 10 mm. Elevated right diaphragm. Cholelithiasis Labs on admission show hemoglobin 10.2, MCV 103.8, platelet count 57, PT 16.3, INR 1.6, APTT 31.6, sodium 141, total bilirubin 2.4, AST 47, ALT 40 Troponin I 0.012, proBNP 203, D-dimer 3.94 Respiratory panel negative 04/30/24: Patient seen and examined at bedside today. Patient had diarrhea yesterday, no diarrhea reported today. Today she became non responsive and her oxygen requirement increased from 2 to 3L. Labs today show hemoglobin 10.3, MCV 104.5, marked macrocytosis, potassium 3.3, bicarb 31, total bili 22.9, AST 58, ALT 41, ALP 171, ammonia 124. ABG shows pH 7.57, pCO2 34, pO2 54. CT brain without contrast shows no acute intracranial process. 05/01/24: Patient seen and examined. Blood work done today showed WBC 5.6, hemoglobin 9.9, platelet count 48 sodium 139, potassium 2.8, BUN 17, creatinine 0.64. Potassium placement ordered. Patient had to be transferred to ICU yesterday because of confusion. Currently patient is alert, able to take medication orally. 05/02/24: Patient evaluated at bedside today. Her mentation has improved. Labs today show Ammonia 104, Hb 10.2, platelet 55, Na 135, Total bilirubin 2.5, AST 49, ALT 38, ALP 148. She had 1 bowel movement last night and 1 bowel movement today morning. Chest x-ray shows mild pulmonary edema. GI consulted today. Review of systems: Pertinent positives and negatives as discussed in HPI, a complete review of systems was performed and all other systems are negative. Vitals: Signs Reviewed Physical examination: General: Alert Derm: warm, dry, intact Head: atraumatic, normocephalic, symmetric Eyes: EOMI, anicteric sclera Mouth: no lip lesion, mucus membranes moist Cardiovascular: S1 S2 reg, no murmur Lungs: CTA bilateral, no rhonchi, no rales, no accessory muscle use Abdominal: soft, non-tender to palpataion Extremities: No cyanosis, clubbing, or pedal edema. Neuro: Unable to assess Assessment/Plan: Patient is a 59-year-old female with past medical history of CHF, COPD, hypertension and ascites who presented with shortness of breath. She has been admitted for ascites and got a paracentesis on 04/29/24, 2.5L was removed. Patient was moved to the ICU for acute metabolic encephalopathy and continues to be on oral lactulose and diuretics. Rifaximin added today and GI consulted. Active: #. Ascites, due to cirrhosis secondary to alcohol vs Hepatitis C #. Acute metabolic encephalopathy,hepatic encephalopathy -Labs on admission show total bilirubin 2.4, AST 47, ALT 40, PT 16.3, INR 1.6, APTT 31.6, D-dimer 3.94, -Chest CTA shows no evidence of pulmonary embolism, mild pulmonary edema. Hepatic cirrhosis with evidence of portal hypertension and moderate to large ascites. The left upper lobe pulmonary nodule near the aortic arch is indeterminate measuring up to 10 mm. Elevated right diaphragm. Cholelithiasis -Ultrasound guided Paracentesis on 04/29/24, 2.5L was removed -CT brain without contrast shows no acute intracranial process. -Ammonia today is 104 -Hepatitis C serologies ordered per GI -Continue haloperidol 2 mg IVP every 6 hours as needed per ICU -Continue lactulose 30 gm PO QID -Continue IV lasix 20 mg BID -Aldactone increased to 100 mg PO daily per GI -Rifaximin 550 mg BID added -ICU following -GI following #. Acute hypoxic respiratory failure #. Pulmonary edema on CXR -Continue Albuterol 2.5 mg QID PRN -Continue IV lasix 20 mg BID -Pulmnology is following #. Hypokalemia -Potassium replacement per protocol #. Heartburn -Continue Tums 500 mg PO TID OR Chronic: #. Neuropathy -Continue Gabapentin 600 mg PO BID PRN #. Anxiety/depression -Continue home meds buspirone 15 mg p.o. 3 times daily as needed, citalopram 40 mg p.o. daily, trazodone 50 mg p.o. at bedtime F: None E: Potassium replacement per protocol N: Heart healthy diet A: Bedrest GI prophylaxis: Pantoprazole 40 mg IVP daily Attestation I have seen and examined this patient with my resident , discussed the same with the resident/DAYRON, and agree with the dictator's assessment and plan as written Dr. Higinio danielson Objective - Vital Signs Vital signs: Vital Signs Temp 99.2 F 05/02/24 04:00 Pulse 79 05/02/24 04:00 Resp 28 H 05/01/24 23:00 BP 99/63 05/02/24 04:00 Pulse Ox 96 05/02/24 04:00 FiO2 Intake & Output 05/01/24 05/02/24 05/02/24 18:59 06:59 18:59 Intake Total 600 450 Output Total 225 865 Balance 375 -415 Intake: Intake, IV Titration 600 Amount Potassium Chloride 10 meq 600 In Water For Injection 1 100ml.bag @ 100 mls/hr IVPB Q1H [facility] Rx#: [id number] Oral 450 Output: Urine 225 865 Other: Voiding Method Indwelling Catheter Indwelling Catheter # Bowel Movements 1 - Labs CBC & Chem 7: 05/03/24 06:30 05/03/24 06:30 Labs: Abnormal Lab Results - Last 24 Hours (Table) 11/17/24 Range/Units 14:03 Potassium 3.4 L (3.5-5.1) mmol/L
[2024-05-03 06:57] LABS: Anisocytosis Slight; HGB 9.7 gm/dL (11.4-16.0); Hypochromasia Marked; MCH 34.5 pg (25.0-35.0); MCHC 32.2 g/dL (31.0-37.0); Macrocytosis Marked; Mean Platelet Volume 9.8; RDW 17.5 % (11.5-15.5); WBC 4.1 k/uL (3.8-10.6)
[2024-05-03 07:13] LABS: MCV 107.2 fL (80.0-100.0); Platelet Count 55 k/uL (150-450)
[2024-05-03 07:18] LABS: African American GFR (CKD) >90 (>60 ml/min/1.73 sqM); Anion Gap 4 mmol/L; Blood Urea Nitrogen 12 mg/dL (7-17); Calcium 8.1 mg/dL (8.4-10.2); Carbon Dioxide 30 mmol/L (22-30); Chloride 100 mmol/L (98-107); Glucose 137 mg/dL (74-99); Non-African American GFR(CKD) >90 (>60 ml/min/1.73 sqM); Potassium 3.5 mmol/L (3.5-5.1); Sodium 134 mmol/L (137-145)
[2024-05-03] MEDS: SPIRONOLACTONE 25 MG TAB PO SCH (09:29)
--- NOTE | 2024-05-03 12:59 | P.PN ---
Subjective Progress Note Date: 05/03/24 Principal diagnosis: Cirrhosis. This is a 59-year-old female patient who appears older than her stated age with a history of congestive heart failure, chronic obstructive pulmonary disease, chronic and ongoing tobacco dependence, hypertension, chronic alcohol abuse, IV drug abuse, hepatitis C, recently at [facility] for cocaine and methadone abuse. She was here back in December with abdominal pain and found to have significant ascites secondary to cirrhosis. She also had acute metabolic encephalopathy due to hyperammonia at that time. She presented here to the emergency room on April 28, 2024 with shortness of breath, dyspnea and fatigue for 2 days prior. Chest x-ray reveals evidence of pulmonary vascular congestion. Yesterday she did undergo an ultrasound-guided paracentesis with 2.5 L of straw-colored fluid removed. She was having altered mental status and a CT scan of the brain revealed no acute intracranial process. Arterial blood gases revealed a PaO2 of 54, pCO2 of 34 and a pH of 7.57 on 28% FiO2. We are consulted for hypoxemia. She is seen today on the selective care unit. She is quite obtunded. Difficult to arouse. She is maintaining O2 saturations in the mid 90s on 3 L/min per nasal cannula. She is afebrile. Hemodynamically stable. Her ammonia level is 124. Count 4.8. Globin 10.3. Platelets 48,000. Sodium 140. Potassium 3.3. Bicarb 31. BUN 15. Creatinine 0.59. Glucose 103. AST 58. ALT 41. Alk phos 171. Viral screen was negative. proBNP 203. Was evaluated today on 05/01/2024, patient was transferred to the ICU yesterday, mostly because of her worsening hepatic encephalopathy and significantly eleva maninder ammonia level. Patient is now on lactulose orally, she is definitely more awake today compared to yesterday, arousable, not back to baseline but definitely arousable and able to take medications orally able to follow instructions, and her ammonia level is down to 54. Hence I plan to transfer the patient back out of the ICU to medical floor.Patient is on 3 L nasal cannula with O2 sat of 95%. WBC count is 5.6 hemoglobin 9.9 basic metabolic profile is normal except for low potassium of 2.8 being addressed accordingly ABG yesterday showed a pO2 of 54 pCO2 34 pH of 7.57, and this was on 28% FiO2. Chest x-ray this morning showed minimal pulmonary vascular congestion patient is already on diuretics The patient is seen today May 02, 2020 for follow-up in the intensive care unit. She is currently sitting up in bed. Awake and alert in no acute distress. Maintaining O2 saturations in the 90s on room air. No IV fluids. She is afebrile. Hemodynamically stable. Urine culture positive for gram- negative bacilli. White count 4.6. Hemoglobin 10.2. Platelets 55,000. Sodium 135. Potassium 3.8. Bicarb 31. BUN 14. Creatinine 0.6. Glucose 148. She remains on bronchodilators. Continued on IV diuretics. Haldol for agitation. Remains on lactulose. Her ammonia level went back up to 104 today. Progress note dated May 03, 2024. 59-year-old female with a history of liver cirrhosis. The patient was in the intensive care unit yesterday but was transferred out, and is seen today, in room 383. She is currently on room air. She is not receiving any IV fluids. S he appears not to be in any distress. She is sitting in her chair next to the hospital bed. Current labs include a white count 4.1, hemoglobin 9.7, hematocrit 30, and a platelet count of 55,000. Sodium 134, potassium 3.5, chlorides 100, CO2 30, BUN 12, creatinine 0.55. Glucose is 137. Calcium is 8.1. Ammonia was 104, and is down to 55. She tested negative for C. difficile. Urine sampling, from May 01, reveals Klebsiella pneumoniae. The patient is currently on Rocephin. Objective - Vital Signs Vital signs: Vital Signs Temp 98.6 F 05/03/24 08:00 Pulse 100 05/03/24 08:00 Resp 18 05/03/24 08:00 BP 109/68 05/03/24 08:00 Pulse Ox 96 05/03/24 08:00 FiO2 Intake & Output 05/02/24 05/03/24 05/03/24 18:59 06:59 18:59 Intake Total 260 180 Output Total 775 600 0 Balance -515 -600 180 Intake: IV 20 Invasive Line 2 20 Oral 240 180 Output: Urine 775 600 Female - External 200 Stool 0 Other: Voiding Method Diaper Incontinent Incontinent Incontinent External Catheter # Voids 1 # Bowel Movements 4 1 - Exam No acute distress, confused. The patient looks much older than her stated age of 59 years. HEENT examination is grossly unremarkable. Mucous membranes are moist. No oral lesions. Neck supple. Full range of motion. No adenopathy thyromegaly or neck vein distention. Cardiovascular examination reveals regular rhythm rate. S1-S2 normal. No S3 or S4. No discernible murmur noted. Lungs reveal mostly clear breath sounds. Minimal scattered rhonchi. No wheezes or crackles. Breath sounds equal. Abdomen soft and distended. No bowel sounds. No masses. Extremities are intact. No cyanosis clubbing or edema. Skin is without rash or lesion. Neurologic examination is brief but nonfocal. - Labs CBC & Chem 7: 05/03/24 06:30 05/03/24 06:30 Labs: Abnormal Lab Results - Last 24 Hours (Table) 05/03/24 05/03/24 05/03/24 Range/Units 06:30 06:30 07:43 RBC 2.80 L (3.80-5.40) m/uL Hgb 9.7 L (11.4-16.0) gm/dL Hct 30.0 L (34.0-46.0) % MCV 107.2 H (80.0-100.0) fL RDW 17.5 H (11.5-15.5) % Plt Count 55 L (150-450) k/uL Macrocytosis Marked A Sodium 134 L (137-145) mmol/L Glucose 137 H (74-99) mg/dL Calcium 8.1 L (8.4-10.2) mg/dL Ammonia 55 H (<30) umol/L Microbiology - Last 24 Hours (Table) 05/01/24 06:20 Urine Culture - Final Urine,Clean Catch Klebsiella pneumoniae Assessment and Plan Assessment: Altered mental status secondary to hyperammonemia, secondary to alcoholic liver cirrhosis. Acute hypoxemic respiratory failure secondary to above. Thrombocytopenia secondary to above. Coagulopathy secondary to above. Transaminitis secondary to above. History of alcohol abuse. History of polysubstance abuse including cocaine, heroin, opiates, prescription medications. Chronic and ongoing tobacco dependence. Hypertension. Congestive heart failure. Homelessness. Plan: Plan dated May 03, 2024. The patient is seen today in room 383. The patient appears to be relatively stable. She is on room air. She is not receiving any IV fluids. Labs, x-rays, and all medications are reviewed. The patient was initially in the intensive care unit, but was transferred out yesterday. From the pulmonary standpoint, the patient is ready for discharge. Her respiratory status is currently stable. Long-term prognosis is poor. Time with Patient: Less than 30
--- NOTE | 2024-05-03 13:36 | P.PN ---
Subjective Progress Note Date: 05/03/24 Principal diagnosis: Liver cirrhosis, hyperammonemia This pleasant 59-year-old female with a past medical history including IV drug use, COPD, heart failure, hypertension and liver disease secondary to hepatitis C who presented to the emergency department on 04/28/2024 with complaints of shortness of breath, dyspnea and fatigue. Patient was noted to have significantly elevated ammonia level and was admitted to the ICU for closer observation for hepatic encephalopathy. She was started on lactulose initially and Xifaxan was added yesterday. Patient states she was diagnosed with hepatitis C 2 to 3 years ago. States she has not had any treatment. She was a heroin addict and quit 8 months ago. States she is still smoking crack. On admission patient's ammonia level was 124, she was started on lactulose 30 g 4 times daily yesterday it was 57. She was started on Xifaxan. Today is 104. She has had 3 bowel movements so far today. She denies any abdominal pain, naus ea or vomiting. States shortness of breath improved. She had a paracentesis on 04/29/2024 with 2.5 L removed 05/03/2024 Patient seen and examined today as a follow-up. She is alert and oriented. She has been transferred out of the ICU. Repeat ammonia level is 54. She denies any acute changes through the night. No abdominal pain. Objective - Vital Signs Vital signs: Vital Signs Temp 98.4 F 05/03/24 04:23 Pulse 94 05/03/24 04:23 Resp 16 05/03/24 04:23 BP 113/65 05/03/24 04:23 Pulse Ox 92 L 05/03/24 04:23 FiO2 Intake & Output 05/02/24 05/03/24 05/03/24 18:59 06:59 18:59 Intake Total 260 180 Output Total 775 600 Balance -515 -600 180 Intake: IV 20 Invasive Line 2 20 Oral 240 180 Output: Urine 775 600 Female - External 200 Other: Voiding Method Diaper Incontinent Incontinent External Catheter # Voids 1 # Bowel Movements 4 1 - Exam General appearance: The patient is alert, oriented, appears in no acute distress. HET: Head is normocephalic and atraumatic. Conjunctiva pink. Sclera anicteric. Neck: Supple without lymphadenopathy. Abdomen: Soft, nontender, nondistended. Extremities: Normal skin color and turgor. No pedal edema Skin: No rashes, no jaundice Neurological: No focal deficits. Alert and oriented. - Labs CBC & Chem 7: 05/03/24 06:30 05/03/24 06:30 Labs: Abnormal Lab Results - Last 24 Hours (Table) 05/03/24 05/03/24 05/03/24 Range/Units 06:30 06:30 07:43 RBC 2.80 L (3.80-5.40) m/uL Hgb 9.7 L (11.4-16.0) gm/dL Hct 30.0 L (34.0-46.0) % MCV 107.2 H (80.0-100.0) fL RDW 17.5 H (11.5-15.5) % Plt Count 55 L (150-450) k/uL Macrocytosis Marked A Sodium 134 L (137-145) mmol/L Glucose 137 H (74-99) mg/dL Calcium 8.1 L (8.4-10.2) mg/dL Ammonia 55 H (<30) umol/L Microbiology - Last 24 Hours (Table) 05/01/24 06:20 Urine Culture - Preliminary Urine,Clean Catch Gram Neg Bacilli Assessment and Plan (1) Cirrhosis Narrative/Plan: 59-year-old female with history of IV drug use with underlying liver disease sec ondary to hepatitis C. Patient denies any treatment as she has been IV drug user and just recently quit a few months ago. Patient was admitted with shortness of breath and abdominal ascites. She was noted to have significantly elevated ammonia level. Started on lactulose and now Xifaxan. Recommend continuing with the lactulose 30 g 3 times daily with titration to have 3-4 bowel movements, continue Xifaxan 550 mg twice daily. Will obtain hepatitis C serologies. Current Visit: No Status: Acute Code(s): K74.60 - UNSPECIFIED CIRRHOSIS OF LIVER SNOMED Code(s): 49409106 (2) Hepatic encephalopathy Narrative/Plan: Improving. Continue with lactulose and Xifaxan as ordered. Current Visit: No Status: Acute Code(s): K76.82 - HEPATIC ENCEPHALOPATHY SNOMED Code(s): 27414420 (3) Ascites Narrative/Plan: Increase Aldactone to 100 mg daily, continue Lasix 40 mg daily Current Visit: Yes Status: Acute Code(s): R18.8 - OTHER ASCITES SNOMED Code(s): 464249877 (4) Hepatitis C Current Visit: No Status: Acute Code(s): B19.20 - UNSPECIFIED VIRAL HEPATITIS C WITHOUT HEPATIC COMA SNOMED Code(s): 25843149 (5) Heroin abuse Current Visit: No Status: Acute Code(s): F11.10 - OPIOID ABUSE, UNCOMPLICATED SNOMED Code(s): 3845352 (6) Hyperammonemia Current Visit: No Status: Acute Code(s): E72.20 - DISORDER OF UREA CYCLE METABOLISM, UNSPECIFIED SNOMED Code(s): 1316948 Plan: 1. Continue symptomatic and supportive care 2. Low-sodium diet 3. Increase spironolactone to 100 mg daily, continue Lasix 40 mg daily 4. Continue lactulose as ordered, titrate to have 3-4 bowel movements daily 5. Continue Xifaxan 550 mg twice daily 6. Hepatitis C serologies ordered 7. Continue abstinence from IV drug use 8. Recommend outpatient follow-up with gastroenterology for hepatitis treatment and liver cirrhosis Thank you for this consultation, we will continue to follow. Dr. Paulina Rodríguez I agree with the dictator's note, documented as a scribe by Sherry Reid.
--- NOTE | 2024-05-03 14:03 | P.PN ---
Subjective Progress Note Date: 05/03/24 Principal diagnosis: Hospital course: Patient is a 59-year-old female with past medical history of COPD, CHF, liver failure and ascites presented to the ER with shortness of breath. The patient mentions her symptoms started 2 days ago. Her shortness of breath and fatigue have been worsening since the past couple of days. She also endorses significan t dyspnea with exertion. It is associated with occasional cough as well as some congestion without sputum production. Additionally she also mentions of having abdominal distention. She has had paracentesis twice previously for ascites. She is currently undergoing rehab at [place] for cocaine use. Moreover she mentions being at [facility] a few days ago for C. difficile colitis and was treated with oral vancomycin. Denies fever, chills, dysuria, hematuria, melena,, hematochezia. ED documentation reviewed. In the ED she was treated with aspirin 325 mg, calcium carbonate 1000 mg and Lasix 20 mg. Vitals on admission T 99.2 F, WA 103 bpm, RR 20, BP 106/72, O2 sat 96% on room air EKG independently interpreted as sinus tachycardia, rate 103 bpm, QTc 396 ms Chest x-ray shows pulmonary vascular prominence correlate for pulmonary edema Chest CTA shows no evidence of pulmonary embolism, mild pulmonary edema. Hepatic cirrhosis with evidence of portal hypertension and moderate to large ascites. The left upper lobe pulmonary nodule near the aortic arch is indeterminate measuring up to 10 mm. Elevated right diaphragm. Cholelithiasis Labs on admission show hemoglobin 10.2, MCV 103.8, platelet count 57, PT 16.3, INR 1.6, APTT 31.6, sodium 141, total bilirubin 2.4, AST 47, ALT 40 Troponin I 0.012, proBNP 203, D-dimer 3.94 Respiratory panel negative 04/30/24: Patient seen and examined at bedside today. Patient had diarrhea yesterday, no diarrhea reported today. Today she became non responsive and her oxygen requirement increased from 2 to 3L. Labs today show hemoglobin 10.3, MCV 104.5, marked macrocytosis, potassium 3.3, bicarb 31, total bili 22.9, AST 58, ALT 41, ALP 171, ammonia 124. ABG shows pH 7.57, pCO2 34, pO2 54. CT brain without contrast shows no acute intracranial process. 05/01/24: Patient seen and examined. Blood work done today showed WBC 5.6, hemoglobin 9.9, platelet count 48 sodium 139, potassium 2.8, BUN 17, creatinine 0.64. Potassium placement ordered. Patient had to be transferred to ICU yesterday because of confusion. Currently patient is alert, able to take medication orally. 05/02/24: Patient evaluated at bedside today. Her mentation has improved. Labs today show Ammonia 104, Hb 10.2, platelet 55, Na 135, Total bilirubin 2.5, AST 49, ALT 38, ALP 148. She had 1 bowel movement last night and 1 bowel movement today morning. Chest x-ray shows mild pulmonary edema. GI consulted today. 05/03/24: Patient seen and examined at bedside. No acute events overnight. Her mentation has improved but still has slurred speech. She mentions having 2 bowel movements last night. Labs show hemoglobin 9.7, platelet count 55, sodium 134, potassium 3.5, ammonia 55. Hepatitis C viral RNA positive, quantitative [id number] IU/mL and hepatitis C RNA (PCR) log 5.93 IU/mL. C. difficile EIA negative. Urine culture grew Klebsiella pneumonia. Review of systems: Pertinent positives and negatives as discussed in HPI, a complete review of systems was performed and all other systems are negative. Vitals: Signs Reviewed Physical examination: General: Alert Derm: warm, dry, intact Head: atraumatic, normocephalic, symmetric Eyes: EOMI, anicteric sclera Mouth: no lip lesion, mucus membranes moist Cardiovascular: S1 S2 reg, no murmur Lungs: CTA bilateral, no rhonchi, no rales, no accessory muscle use Abdominal: soft, non-tender to palpataion Extremities: No cyanosis, clubbing, or pedal edema. Neuro: slurred speech Assessment/Plan: Patient is a 59-year-old female with past medical history of CHF, COPD, hypertension and ascites who presented with shortness of breath. She has been admitted for ascites and got a paracentesis on 04/29/24, 2.5L was removed. Patient was moved to the ICU for acute metabolic encephalopathy. She is now back on cardiac step down and continues to be on oral lactulose, rifaximin and diuretics. Active: #. Ascites, due to cirrhosis secondary to alcohol vs Hepatitis C #. Acute metabolic encephalopathy,hepatic encephalopathy -Labs on admission show total bilirubin 2.4, AST 47, ALT 40, PT 16.3, INR 1.6, APTT 31.6, D-dimer 3.94, -Chest CTA shows no evidence of pulmonary embolism, mild pulmonary edema. Hepatic cirrhosis with evidence of portal hypertension and moderate to large ascites. The left upper lobe pulmonary nodule near the aortic arch is indeterminate measuring up to 10 mm. Elevated right diaphragm. Cholelithiasis -Ultrasound guided Paracentesis on 04/29/24, 2.5L was removed -CT brain without contrast shows no acute intracranial process. -Ammonia today is 55 -Hepatitis C viral RNA positive, quantitative 115270 IU/mL and hepatitis C RNA (PCR) log 5.93 IU/mL. -Continue haloperidol 2 mg IVP every 6 hours as needed per ICU -Continue lactulose 30 gm PO QID -Continue IV lasix 20 mg BID -Continue Aldactone 100 mg PO daily per GI -Continue Rifaximin 550 mg PO BID Monitor ammonia level -ICU following -GI following -PT and OT recommended going back to [place] to continue rehab #. Positive urine culture, Klebsiella pneumonia Started on ceftriaxone 2 g IVPB every 24 hours #. Acute hypoxic respiratory failure, resolved #. Pulmonary edema on CXR -Currently on room air -Continue Albuterol nebulised 2.5 mg QID PRN #. Hypokalemia -Potassium replacement per protocol #. Heartburn -Continue Tums 500 mg PO TID WA Chronic: #. Neuropathy -Continue Gabapentin 600 mg PO BID PRN #. Anxiety/depression -Continue home meds buspirone 15 mg p.o. 3 times daily as needed, citalopram 40 mg p.o. daily, trazodone 50 mg p.o. at bedtime F: None E: Potassium replacement per protocol N: Heart healthy and Low sodium diet A: Bedrest GI prophylaxis: Pantoprazole 40 mg IVP daily Objective - Vital Signs Vital signs: Vital Signs Temp 98.4 F 05/03/24 04:23 Pulse 94 05/03/24 04:23 Resp 16 05/03/24 04:23 BP 113/65 05/03/24 04:23 Pulse Ox 92 L 05/03/24 04:23 FiO2 Intake & Output 05/02/24 05/03/24 05/03/24 18:59 06:59 18:59 Intake Total 260 Output Total 775 600 Balance -515 -600 Intake: IV 20 Invasive Line 2 20 Oral 240 Output: Urine 775 600 Female - External 200 Other: Voiding Method Diaper Incontinent Incontinent External Catheter # Voids 1 # Bowel Movements 4 1 - Labs CBC & Chem 7: 05/03/24 06:30 05/03/24 06:30 Labs: Abnormal Lab Results - Last 24 Hours (Table) 05/02/24 05/02/24 05/02/24 Range/Units 07:41 07:41 08:09 RBC 3.00 L (3.80-5.40) m/uL Hgb 10.2 L (11.4-16.0) gm/dL Hct 31.7 L (34.0-46.0) % MCV 105.7 H (80.0-100.0) fL RDW 17.5 H (11.5-15.5) % Plt Count 55 L (150-450) k/uL Macrocytosis Marked A Sodium 135 L (137-145) mmol/L Carbon Dioxide 31 H (22-30) mmol/L Glucose 220 H (74-99) mg/dL Calcium 8.2 L (8.4-10.2) mg/dL Total Bilirubin 2.5 H (0.2-1.3) mg/dL AST 49 H (14-36) U/L ALT 38 H (4-34) U/L Alkaline Phosphatase 148 H (38-126) U/L Ammonia 104 H (<30) umol/L Total Protein 5.7 L (6.3-8.2) g/dL Albumin 2.8 L (3.5-5.0) g/dL 05/03/24 05/03/24 Range/Units 06:30 06:30 RBC 2.80 L (3.80-5.40) m/uL Hgb 9.7 L (11.4-16.0) gm/dL Hct 30.0 L (34.0-46.0) % MCV 107.2 H (80.0-100.0) fL RDW 17.5 H (11.5-15.5) % Plt Count 55 L (150-450) k/uL Macrocytosis Marked A Sodium 134 L (137-145) mmol/L Carbon Dioxide (22-30) mmol/L Glucose 137 H (74-99) mg/dL Calcium 8.1 L (8.4-10.2) mg/dL Total Bilirubin (0.2-1.3) mg/dL AST (14-36) U/L ALT (4-34) U/L Alkaline Phosphatase (38-126) U/L Ammonia (<30) umol/L Total Protein (6.3-8.2) g/dL Albumin (3.5-5.0) g/dL Microbiology - Last 24 Hours (Table) 05/01/24 06:20 Urine Culture - Preliminary Urine,Clean Catch Gram Neg Bacilli
[2024-05-04 06:54] LABS: Anisocytosis Slight; HGB 10.5 gm/dL (11.4-16.0); Hypochromasia Moderate; MCH 34.3 pg (25.0-35.0); MCHC 32.7 g/dL (31.0-37.0); MCV 104.8 fL (80.0-100.0); Macrocytosis Moderate; Mean Platelet Volume 9.7; RBC 3.06 m/uL (3.80-5.40); RDW 17.3 % (11.5-15.5); WBC 4.6 k/uL (3.8-10.6)
[2024-05-04 06:55] LABS: Platelet Count 65 k/uL (150-450)
[2024-05-04 07:17] LABS: African American GFR (CKD) >90 (>60 ml/min/1.73 sqM); Anion Gap 3 mmol/L; Blood Urea Nitrogen 14 mg/dL (7-17); Calcium 8.2 mg/dL (8.4-10.2); Carbon Dioxide 31 mmol/L (22-30); Chloride 100 mmol/L (98-107); Glucose 115 mg/dL (74-99); Non-African American GFR(CKD) >90 (>60 ml/min/1.73 sqM); Potassium 3.3 mmol/L (3.5-5.1); Sodium 134 mmol/L (137-145)
[2024-05-04] MEDS: POTASSIUM CHLORIDE ER 20 MEQ TAB.ER PO SCH (08:57)
[2024-05-04] MEDS: LACTULOSE 20 GM/30 ML CUP PO SCH (10:26)
--- NOTE | 2024-05-04 12:22 | P.PN ---
Subjective Progress Note Date: 05/04/24 Principal diagnosis: Liver cirrhosis, hyperammonemia This pleasant 59-year-old female with a past medical history including IV drug use, COPD, heart failure, hypertension and liver disease secondary to hepatitis C who presented to the emergency department on 04/28/2024 with complaints of shortness of breath, dyspnea and fatigue. Patient was noted to have significantly elevated ammonia level and was admitted to the ICU for closer observation for hepatic encephalopathy. She was started on lactulose initially and Xifaxan was added yesterday. Patient states she was diagnosed with hepatitis C 2 to 3 years ago. States she has not had any treatment. She was a heroin addict and quit 8 months ago. States she is still smoking crack. On admission patient's ammonia level was 124, she was started on lactulose 30 g 4 times daily yesterday it was 57. She was started on Xifaxan. Today is 104. She has had 3 bowel movements so far today. She denies any abdominal pain, naus ea or vomiting. States shortness of breath improved. She had a paracentesis on 04/29/2024 with 2.5 L removed 05/03/2024 Patient seen and examined today as a follow-up. She is alert and oriented. She has been transferred out of the ICU. Repeat ammonia level is 54. She denies any acute changes through the night. No abdominal pain. 05/04/2024 Patient seen and examined today as a follow-up. She is alert and oriented x 3. She denies any abdominal pain, nausea or vomiting. She is having 3-5 bowel movements daily. Her ammonia level did increase today a little bit to 75. But again she has no evident encephalopathy. Plan is for her to return to [facility] and then she will go to [facility] from there into a recovery home. Objective - Vital Signs Vital signs: Vital Signs Temp 98.0 F 05/04/24 04:00 Pulse 94 05/04/24 04:00 Resp 18 05/04/24 04:00 BP 109/58 05/04/24 04:00 Pulse Ox 94 L 05/04/24 04:00 FiO2 Intake & Output 05/03/24 05/04/24 05/04/24 18:59 06:59 18:59 Intake Total 540 358 Output Total 1400 200 Balance -860 -200 358 Weight 48.5 kg Intake: Oral 540 358 Output: Urine 1400 200 Stool 0 0 Other: Voiding Method Incontinent Incontinent # Bowel Movements 2 1 - Exam General appearance: The patient is alert, oriented, appears in no acute distress. HET: Head is normocephalic and atraumatic. Conjunctiva pink. Sclera anicteric. Neck: Supple without lymphadenopathy. Abdomen: Soft, nontender, nondistended. Extremities: Normal skin color and turgor. No pedal edema Skin: No rashes, no jaundice Neurological: No focal deficits. Alert and oriented. - Labs CBC & Chem 7: 05/04/24 06:18 05/04/24 06:18 Labs: Abnormal Lab Results - Last 24 Hours (Table) 05/02/24 05/04/24 05/04/24 Range/Units 07:41 06:18 06:18 RBC 3.06 L (3.80-5.40) m/uL Hgb 10.5 L (11.4-16.0) gm/dL Hct 32.0 L (34.0-46.0) % MCV 104.8 H (80.0-100.0) fL RDW 17.3 H (11.5-15.5) % Plt Count 65 L (150-450) k/uL Sodium 134 L (137-145) mmol/L Potassium 3.3 L (3.5-5.1) mmol/L Carbon Dioxide 31 H (22-30) mmol/L Glucose 115 H (74-99) mg/dL Calcium 8.2 L (8.4-10.2) mg/dL Ammonia (<30) umol/L Hepatitis C Viral RNA Detected A (Not Detected) 05/04/24 Range/Units 06:18 RBC (3.80-5.40) m/uL Hgb (11.4-16.0) gm/dL Hct (34.0-46.0) % MCV (80.0-100.0) fL RDW (11.5-15.5) % Plt Count (150-450) k/uL Sodium (137-145) mmol/L Potassium (3.5-5.1) mmol/L Carbon Dioxide (22-30) mmol/L Glucose (74-99) mg/dL Calcium (8.4-10.2) mg/dL Ammonia 75 H (<30) umol/L Hepatitis C Viral RNA (Not Detected) Microbiology - Last 24 Hours (Table) 05/01/24 06:20 Urine Culture - Final Urine,Clean Catch Klebsiella pneumoniae Assessment and Plan (1) Cirrhosis Narrative/Plan: 59-year-old female with history of IV drug use with underlying liver disease secondary to hepatitis C. Patient denies any treatment as she has been IV drug user and just recently quit a few months ago. Patient was admitted with genevieve rtness of breath and abdominal ascites. She was noted to have significantly elevated ammonia level. Started on lactulose and now Xifaxan. Recommend continuing with the lactulose 30 g 3 times daily with titration to have 3-4 bowel movements, continue Xifaxan 550 mg twice daily. Will obtain hepatitis C serologies. Current Visit: No Status: Acute Code(s): K74.60 - UNSPECIFIED CIRRHOSIS OF LIVER SNOMED Code(s): 87231984 (2) Hepatic encephalopathy Narrative/Plan: Improved. Continue with lactulose and Xifaxan as ordered. Current Visit: No Status: Acute Code(s): K76.82 - HEPATIC ENCEPHALOPATHY SNOMED Code(s): 28792377 (3) Ascites Current Visit: Yes Status: Acute Code(s): R18.8 - OTHER ASCITES SNOMED Code(s): 642546458 (4) Hepatitis C Current Visit: No Status: Acute Code(s): B19.20 - UNSPECIFIED VIRAL HEPATITIS C WITHOUT HEPATIC COMA SNOMED Code(s): 84177752 (5) Heroin abuse Current Visit: No Status: Acute Code(s): F11.10 - OPIOID ABUSE, UNCOMPLICATED SNOMED Code(s): 7604889 (6) Hyperammonemia Narrative/Plan: Patient continues to have elevated ammonia levels. She is not encephalopathic anymore. Will continue with current medication. Current Visit: No Status: Acute Code(s): E72.20 - DISORDER OF UREA CYCLE METABOLISM, UNSPECIFIED SNOMED Code(s): 0101252 Plan: 1. Continue symptomatic and supportive care 2. Low-sodium diet 3. Continue spironolactone to 100 mg daily, continue Lasix 40 mg daily 4. Lactulose 30 g 3 times daily, titrate to have 3-4 bowel movements daily 5. Continue Xifaxan 550 mg twice daily 6. Hepatitis C serologies ordered 7. Continue abstinence from IV drug use 8. Recommend outpatient follow-up with gastroenterology for hepatitis treatment and liver cirrhosis 9. Patient is cleared from gastroenterology for discharge once otherwise medically cleared Thank you for this consultation, we will continue to follow. Dr. Paulina Rodríguez I agree with the dictator's note, documented as a scribe by Sherry Reid.
--- NOTE | 2024-05-04 12:37 | P.PN ---
Subjective Progress Note Date: 05/04/24 Principal diagnosis: Cirrhosis. This is a 59-year-old female patient who appears older than her stated age with a history of congestive heart failure, chronic obstructive pulmonary disease, chronic and ongoing tobacco dependence, hypertension, chronic alcohol abuse, IV drug abuse, hepatitis C, recently at [facility] for cocaine and methadone abuse. She was here back in December with abdominal pain and found to have significant ascites secondary to cirrhosis. She also had acute metabolic encephalopathy due to hyperammonia at that time. She presented here to the emergency room on April 28, 2024 with shortness of breath, dyspnea and fatigue for 2 days prior. Chest x-ray reveals evidence of pulmonary vascular congestion. Yesterday she did undergo an ultrasound-guided paracentesis with 2.5 L of straw-colored fluid removed. She was having altered mental status and a CT scan of the brain revealed no acute intracranial process. Arterial blood gases revealed a PaO2 of 54, pCO2 of 34 and a pH of 7.57 on 28% FiO2. We are consulted for hypoxemia. She is seen today on the selective care unit. She is quite obtunded. Difficult to arouse. She is maintaining O2 saturations in the mid 90s on 3 L/min per nasal cannula. She is afebrile. Hemodynamically stable. Her ammonia level is 124. Count 4.8. Globin 10.3. Platelets 48,000. Sodium 140. Potassium 3.3. Bicarb 31. BUN 15. Creatinine 0.59. Glucose 103. AST 58. ALT 41. Alk phos 171. Viral screen was negative. proBNP 203. Was evaluated today on 05/01/2024, patient was transferred to the ICU yesterday, mostly because of her worsening hepatic encephalopathy and significantly eleva maninder ammonia level. Patient is now on lactulose orally, she is definitely more awake today compared to yesterday, arousable, not back to baseline but definitely arousable and able to take medications orally able to follow instructions, and her ammonia level is down to 54. Hence I plan to transfer the patient back out of the ICU to medical floor.Patient is on 3 L nasal cannula with O2 sat of 95%. WBC count is 5.6 hemoglobin 9.9 basic metabolic profile is normal except for low potassium of 2.8 being addressed accordingly ABG yesterday showed a pO2 of 54 pCO2 34 pH of 7.57, and this was on 28% FiO2. Chest x-ray this morning showed minimal pulmonary vascular congestion patient is already on diuretics The patient is seen today May 02, 2020 for follow-up in the intensive care unit. She is currently sitting up in bed. Awake and alert in no acute distress. Maintaining O2 saturations in the 90s on room air. No IV fluids. She is afebrile. Hemodynamically stable. Urine culture positive for gram- negative bacilli. White count 4.6. Hemoglobin 10.2. Platelets 55,000. Sodium 135. Potassium 3.8. Bicarb 31. BUN 14. Creatinine 0.6. Glucose 148. She remains on bronchodilators. Continued on IV diuretics. Haldol for agitation. Remains on lactulose. Her ammonia level went back up to 104 today. Progress note dated May 03, 2024. 59-year-old female with a history of liver cirrhosis. The patient was in the intensive care unit yesterday but was transferred out, and is seen today, in room 383. She is currently on room air. She is not receiving any IV fluids. S he appears not to be in any distress. She is sitting in her chair next to the hospital bed. Current labs include a white count 4.1, hemoglobin 9.7, hematocrit 30, and a platelet count of 55,000. Sodium 134, potassium 3.5, chlorides 100, CO2 30, BUN 12, creatinine 0.55. Glucose is 137. Calcium is 8.1. Ammonia was 104, and is down to 55. She tested negative for C. difficile. Urine sampling, from May 01, reveals Klebsiella pneumoniae. The patient is currently on Rocephin. Progress note dated May 04, 2024. 59-year-old female with a history of liver cirrhosis secondary to alcohol abuse. The patient was in the intensive care unit for a number of days. Today she is seen in room 383. She is getting saline at 10 cc an hour. She is on room air. She is sitting in the chair next to her hospital bed. She is awake and alert. She is in no distress. Current labs include a white count 4.6, hemoglobin 10.5, hematocrit 32, and a platelet count of 65,000. Sodium 134, potassium 3.3, chlorides 100, CO2 31, BUN 14, creatinine 0.7. Glucose is 115. Ammonia level 75. The patient's urine was also positive for Klebsiella pneumoniae. Objective - Vital Signs Vital signs: Vital Signs Temp 98.1 F 05/04/24 08:00 Pulse 90 05/04/24 08:00 Resp 18 05/04/24 08:00 BP 117/74 05/04/24 08:00 Pulse Ox 96 05/04/24 08:00 FiO2 Intake & Output 05/03/24 05/04/24 05/04/24 18:59 06:59 18:59 Intake Total 540 358 Output Total 1400 200 Balance -860 -200 358 Weight 48.5 kg Intake: Oral 540 358 Output: Urine 1400 200 Stool 0 0 Other: Voiding Method Incontinent Incontinent Incontinent # Voids 1 # Bowel Movements 2 1 - Exam No acute distress, confused. The patient looks much older than her stated age of 59 years. HEENT examination is grossly unremarkable. Mucous membranes are moist. No oral lesions. Neck supple. Full range of motion. No adenopathy thyromegaly or neck vein d istention. Cardiovascular examination reveals regular rhythm rate. S1-S2 normal. No S3 or S4. No discernible murmur noted. Lungs reveal mostly clear breath sounds. Minimal scattered rhonchi. No wheezes or crackles. Breath sounds equal. Abdomen soft and distended. No bowel sounds. No masses. Extremities are intact. No cyanosis clubbing or edema. Skin is without rash or lesion. Neurologic examination is brief but nonfocal. - Labs CBC & Chem 7: 05/04/24 06:18 05/04/24 06:18 Labs: Abnormal Lab Results - Last 24 Hours (Table) 05/02/24 05/04/24 05/04/24 Range/Units 07:41 06:18 06:18 RBC 3.06 L (3.80-5.40) m/uL Hgb 10.5 L (11.4-16.0) gm/dL Hct 32.0 L (34.0-46.0) % MCV 104.8 H (80.0-100.0) fL RDW 17.3 H (11.5-15.5) % Plt Count 65 L (150-450) k/uL Sodium 134 L (137-145) mmol/L Potassium 3.3 L (3.5-5.1) mmol/L Carbon Dioxide 31 H (22-30) mmol/L Glucose 115 H (74-99) mg/dL Calcium 8.2 L (8.4-10.2) mg/dL Ammonia (<30) umol/L Hepatitis C Viral RNA Detected A (Not Detected) 05/04/24 Range/Units 06:18 RBC (3.80-5.40) m/uL Hgb (11.4-16.0) gm/dL Hct (34.0-46.0) % MCV (80.0-100.0) fL RDW (11.5-15.5) % Plt Count (150-450) k/uL Sodium (137-145) mmol/L Potassium (3.5-5.1) mmol/L Carbon Dioxide (22-30) mmol/L Glucose (74-99) mg/dL Calcium (8.4-10.2) mg/dL Ammonia 75 H (<30) umol/L Hepatitis C Viral RNA (Not Detected) Microbiology - Last 24 Hours (Table) 05/01/24 06:20 Urine Culture - Final Urine,Clean Catch Klebsiella pneumoniae Assessment and Plan Assessment: Altered mental status secondary to hyperammonemia, secondary to alcoholic liver cirrhosis. Acute hypoxemic respiratory failure secondary to above. Thrombocytopenia secondary to above. Coagulopathy secondary to above. Transaminitis secondary to above. History of alcohol abuse. History of polysubstance abuse including cocaine, heroin, opiates, prescription medications. Chronic and ongoing tobacco dependence. Hypertension. Congestive heart failure. Homelessness. Plan: Plan dated May 03, 2024. The patient is seen today in room 383. The patient appears to be relatively stable. She is on room air. She is not receiving any IV fluids. Labs, x-rays, and all medications are reviewed. The patient was initially in the intensive care unit, but was transferred out yesterday. From the pulmonary standpoint, the patient is ready for discharge. Her respiratory status is currently stable. Long-term prognosis is poor. Plan dated May 04, 2024. The patient appears to be doing relatively well. She is on room air. The patient is getting saline at 10 cc an hour. Labs, x-rays, and all medications are reviewed. We will continue to follow. Prognosis is guarded. Urine was positive for Klebsiella pneumoniae. Time with Patient: Less than 30
--- NOTE | 2024-05-04 14:22 | P.PN ---
Subjective Progress Note Date: 05/04/24 Principal diagnosis: Hospital course: Patient is a 59-year-old female with past medical history of COPD, CHF, liver failure and ascites presented to the ER with shortness of breath. The patient mentions her symptoms started 2 days ago. Her shortness of breath and fatigue have been worsening since the past couple of days. She also endorses significan t dyspnea with exertion. It is associated with occasional cough as well as some congestion without sputum production. Additionally she also mentions of having abdominal distention. She has had paracentesis twice previously for ascites. She is currently undergoing rehab at [facility] for cocaine use. Moreover she mentions being at [facility] a few days ago for C. difficile colitis and was treated with oral vancomycin. Denies fever, chills, dysuria, hematuria, melena,, hematochezia. ED documentation reviewed. In the ED she was treated with aspirin 325 mg, calcium carbonate 1000 mg and Lasix 20 mg. Vitals on admission T 99.2 F, NM 103 bpm, RR 20, BP 106/72, O2 sat 96% on room air EKG independently interpreted as sinus tachycardia, rate 103 bpm, QTc 396 ms Chest x-ray shows pulmonary vascular prominence correlate for pulmonary edema Chest CTA shows no evidence of pulmonary embolism, mild pulmonary edema. Hepatic cirrhosis with evidence of portal hypertension and moderate to large ascites. The left upper lobe pulmonary nodule near the aortic arch is indeterminate measuring up to 10 mm. Elevated right diaphragm. Cholelithiasis Labs on admission show hemoglobin 10.2, MCV 103.8, platelet count 57, PT 16.3, INR 1.6, APTT 31.6, sodium 141, total bilirubin 2.4, AST 47, ALT 40 Troponin I 0.012, proBNP 203, D-dimer 3.94 Respiratory panel negative 04/30/24: Patient seen and examined at bedside today. Patient had diarrhea yesterday, no diarrhea reported today. Today she became non responsive and her oxygen requirement increased from 2 to 3L. Labs today show hemoglobin 10.3, MCV 104.5, marked macrocytosis, potassium 3.3, bicarb 31, total bili 22.9, AST 58, ALT 41, ALP 171, ammonia 124. ABG shows pH 7.57, pCO2 34, pO2 54. CT brain without contrast shows no acute intracranial process. 05/01/24: Patient seen and examined. Blood work done today showed WBC 5.6, hemoglobin 9.9, platelet count 48 sodium 139, potassium 2.8, BUN 17, creatinine 0.64. Potassium placement ordered. Patient had to be transferred to ICU yesterday because of confusion. Currently patient is alert, able to take medication orally. 05/02/24: Patient evaluated at bedside today. Her mentation has improved. Labs today show Ammonia 104, Hb 10.2, platelet 55, Na 135, Total bilirubin 2.5, AST 49, ALT 38, ALP 148. She had 1 bowel movement last night and 1 bowel movement today morning. Chest x-ray shows mild pulmonary edema. GI consulted today. 05/03/24: Patient seen and examined at bedside. No acute events overnight. Her mentation has improved but still has slurred speech. She mentions having 2 bowel movements last night. Labs show hemoglobin 9.7, platelet count 55, sodium 134, potassium 3.5, ammonia 55. Hepatitis C viral RNA positive, quantitative [id number] IU/mL and hepatitis C RNA (PCR) log 5.93 IU/mL. C. difficile EIA negative. Urine culture grew Klebsiella pneumonia. 05/04/24: Patient evaluated at bedside today. No acute events overnight. C urrently on room air. She had 1 bowel movement last night and 1 bowel movement today. Denies any UTI symptoms thus discontinued Rocephin. Labs today show hemoglobin 10.5, hematocrit 38, sodium 134, potassium 3.3, bicarb 31, Ammonia 75. Review of systems: Pertinent positives and negatives as discussed in HPI, a complete review of systems was performed and all other systems are negative. Vitals: Signs Reviewed Physical examination: General: Alert Derm: warm, dry, intact Head: atraumatic, normocephalic, symmetric Eyes: EOMI, anicteric sclera Mouth: no lip lesion, mucus membranes moist Cardiovascular: S1 S2 reg, no murmur Lungs: CTA bilateral, no rhonchi, no rales, no accessory muscle use Abdominal: soft, non-tender to palpataion Extremities: No cyanosis, clubbing, or pedal edema. Neuro: slurred speech Assessment/Plan: Patient is a 59-year-old female with past medical history of CHF, COPD, hypertension and ascites who presented with shortness of breath. She has been admitted for ascites and got a paracentesis on 04/29/24, 2.5L was removed. Patient was moved to the ICU for acute metabolic encephalopathy. She is now back on cardiac step down and continues to be on oral lactulose, rifaximin and diuretics. Active: #. Ascites, due to cirrhosis secondary to alcohol vs Hepatitis C #. Acute metabolic encephalopathy,hepatic encephalopathy -Labs on admission show total bilirubin 2.4, AST 47, ALT 40, PT 16.3, INR 1.6, APTT 31.6, D-dimer 3.94, -Chest CTA shows no evidence of pulmonary embolism, mild pulmonary edema. Hepatic cirrhosis with evidence of portal hypertension and moderate to large ascites. The left upper lobe pulmonary nodule near the aortic arch is indeterminate measuring up to 10 mm. Elevated right diaphragm. Cholelithiasis -Ultrasound guided Paracentesis on 04/29/24, 2.5L was removed -CT brain without contrast shows no acute intracranial process. -Ammonia today is 75 -Hepatitis C viral RNA positive, quantitative [id number] IU/mL and hepatitis C RNA (PCR) log 5.93 IU/mL. -Continue haloperidol 2 mg IVP every 6 hours as needed per ICU -Continue lactulose 30 gm PO QID -Continue IV lasix 20 mg BID -Continue Aldactone 100 mg PO daily per GI -Continue Rifaximin 550 mg PO BID Monitor ammonia level -ICU following -GI following -PT and OT recommended going back to [facility] to continue rehab #. Positive urine culture, Klebsiella pneumonia No UTI symptoms Ceftriaxone discontinued #. Acute hypoxic respiratory failure, resolved #. Pulmonary edema on CXR -Currently on room air -Continue Albuterol nebulised 2.5 mg QID PRN #. Hypokalemia -Potassium replacement per protocol #. Heartburn -Continue Tums 500 mg PO TID PRN Chronic: #. Neuropathy -Continue Gabapentin 600 mg PO BID PRN #. Anxiety/depression -Continue home meds buspirone 15 mg p.o. 3 times daily as needed, citalopram 40 mg p.o. daily, trazodone 50 mg p.o. at bedtime F: None E: Potassium replacement per protocol N: Heart healthy and Low sodium diet A: Bedrest GI prophylaxis: Pantoprazole [address] Chelsea MD I have performed a history and physical examination and medical decision making of this patient, discussed the same with the the resident, and agree with the assessment and plan as written. I performed brief physical exam. Objective - Vital Signs Vital signs: Vital Signs Temp 98.0 F 05/04/24 04:00 Pulse 94 05/04/24 04:00 Resp 18 05/04/24 04:00 BP 109/58 05/04/24 04:00 Pulse Ox 94 L 05/04/24 04:00 FiO2 Intake & Output 05/03/24 05/04/24 05/04/24 18:59 06:59 18:59 Intake Total 540 Output Total 1400 200 Balance -860 -200 Weight 48.5 kg Intake: Oral 540 Output: Urine 1400 200 Stool 0 0 Other: Voiding Method Incontinent Incontinent # Bowel Movements 2 1 - Labs CBC & Chem 7: 05/05/24 07:17 05/05/24 07:17 Labs: Abnormal Lab Results - Last 24 Hours (Table) 05/02/24 05/03/24 05/04/24 Range/Units 07:41 07:43 06:18 RBC 3.06 L (3.80-5.40) m/uL Hgb 10.5 L (11.4-16.0) gm/dL Hct 32.0 L (34.0-46.0) % MCV 104.8 H (80.0-100.0) fL RDW 17.3 H (11.5-15.5) % Plt Count 65 L (150-450) k/uL Sodium (137-145) mmol/L Potassium (3.5-5.1) mmol/L Carbon Dioxide (22-30) mmol/L Glucose (74-99) mg/dL Calcium (8.4-10.2) mg/dL Ammonia 55 H (<30) umol/L Hepatitis C Viral RNA Detected A (Not Detected) 05/04/24 05/04/24 Range/Units 06:18 06:18 RBC (3.80-5.40) m/uL Hgb (11.4-16.0) gm/dL Hct (34.0-46.0) % MCV (80.0-100.0) fL RDW (11.5-15.5) % Plt Count (150-450) k/uL Sodium 134 L (137-145) mmol/L Potassium 3.3 L (3.5-5.1) mmol/L Carbon Dioxide 31 H (22-30) mmol/L Glucose 115 H (74-99) mg/dL Calcium 8.2 L (8.4-10.2) mg/dL Ammonia 75 H (<30) umol/L Hepatitis C Viral RNA (Not Detected) Microbiology - Last 24 Hours (Table) 05/01/24 06:20 Urine Culture - Final Urine,Clean Catch Klebsiella pneumoniae
[2024-05-05 07:50] LABS: Anisocytosis Slight; HGB 10.9 gm/dL (11.4-16.0); Hypochromasia Marked; MCH 33.2 pg (25.0-35.0); MCHC 31.1 g/dL (31.0-37.0); MCV 106.8 fL (80.0-100.0); Macrocytosis Marked; Mean Platelet Volume 9.8; RBC 3.28 m/uL (3.80-5.40); WBC 5.7 k/uL (3.8-10.6)
[2024-05-05 07:54] LABS: Platelet Count 75 k/uL (150-450)
[2024-05-05 08:13] LABS: African American GFR (CKD) >90 (>60 ml/min/1.73 sqM); Anion Gap 6 mmol/L; Blood Urea Nitrogen 16 mg/dL (7-17); Calcium 8.5 mg/dL (8.4-10.2); Carbon Dioxide 29 mmol/L (22-30); Chloride 100 mmol/L (98-107); Glucose 129 mg/dL (74-99); Non-African American GFR(CKD) >90 (>60 ml/min/1.73 sqM); Potassium 4.2 mmol/L (3.5-5.1); Sodium 135 mmol/L (137-145)
[2024-05-05 11:08] VITALS: BP 141/81; PULSE 82; RESP 19; TEMP 98.7
--- NOTE | 2024-05-05 11:51 | P.DS ---
Providers Date of admission: 04/28/24 20:17 Expected date of discharge: 05/05/24 Attending physician: Slick Jeter MD Consults: 04/30/24 12:17 Consult Physician Routine Consulting Provider: Monika Elias Consult Reason/Comments: acute hypoxic respiratory failure Do you want consulting provider notified?: Yes 05/02/24 12:07 Consult Physician Routine Consulting Provider: Mayda Rodríguez Consult Reason/Comments: Hepatic encephalopathy Do you want consulting provider notified?: Yes Primary care physician: Stated None Hospital Course: Discharge diagnosis: Ascites, due to cirrhosis secondary to alcohol vs Hepatitis C Acute metabolic encephalopathy,hepatic encephalopathy Positive urine culture, Klebsiella pneumonia Acute hypoxic respiratory failure, resolved Pulmonary edema on CXR Hypokalemia Heartburn Neuropathy Anxiety/depression Hospital Course: Patient is a 59-year-old female with past medical history of COPD, CHF, liver failure and ascites presented to the ER with shortness of breath. The patient mentions her symptoms started 2 days ago. Her shortness of breath and fatigue have been worsening since the past couple of days. She also endorses significant dyspnea with exertion. It is associated with occasional cough as well as some congestion without sputum production. Additionally she a lso mentions of having abdominal distention. She has had paracentesis twice previously for ascites. She is currently undergoing rehab at [place] for cocaine use. Moreover she mentions being at [facility] a few days ago for C. difficile colitis and was treated with oral vancomycin. Denies fever, chills, dysuria, hematuria, melena,, hematochezia. Vitals on admission T 99.2 F, TN 103 bpm, RR 20, BP 106/72, O2 sat 96% on room air. EKG independently interpreted as sinus tachycardia, rate 103 bpm, QTc 396 ms. Chest x-ray shows pulmonary vascular prominence correlate for pulmonary edema. Chest CTA shows no evidence of pulmonary embolism, mild pulmonary edema. Hepatic cirrhosis with evidence of portal hypertension and moderate to large ascites. The left upper lobe pulmonary nodule near the aortic arch is indeterminate measuring up to 10 mm. Elevated right diaphragm. Cholelithiasis. Labs on admission show hemoglobin 10.2, MCV 103.8, platelet count 57, PT 16.3, INR 1.6, APTT 31.6, sodium 141, total bilirubin 2.4, AST 47, ALT 40. Troponin I 0.012, proBNP 203, D-dimer 3.94. Respiratory panel negative. In the ED she was treated with aspirin 325 mg, calcium carbonate 1000 mg and Lasix 20 mg. 04/30/24: Patient seen and examined at bedside today. Patient had diarrhea yesterday, no diarrhea reported today. Today she became non responsive and her oxygen requirement increased from 2 to 3L. Labs today show hemoglobin 10.3, MCV 104.5, marked macrocytosis, potassium 3.3, bicarb 31, total bili 22.9, AST 58, ALT 41, ALP 171, ammonia 124. ABG shows pH 7.57, pCO2 34, pO2 54. CT brain without contrast shows no acute intracranial process. 05/01/24: Patient seen and examined. Blood work done today showed WBC 5.6, hemoglobin 9.9, platelet count 48 sodium 139, potassium 2.8, BUN 17, creatinine 0.64. Potassium placement ordered. Patient had to be transferred to ICU yesterday because of confusion. Currently patient is alert, able to take medication orally. 05/02/24: Patient evaluated at bedside today. Her mentation has improved. Labs today show Ammonia 104, Hb 10.2, platelet 55, Na 135, Total bilirubin 2.5, AST 49, ALT 38, ALP 148. She had 1 bowel movement last night and 1 bowel movement today morning. Chest x-ray shows mild pulmonary edema. GI consulted today. 05/03/24: Patient seen and examined at bedside. No acute events overnight. Her mentation has improved but still has slurred speech. She mentions having 2 bowel movements last night. Labs show hemoglobin 9.7, platelet count 55, sodium 134, potassium 3.5, ammonia 55. Hepatitis C viral RNA positive, quantitative [id number] IU/mL and hepatitis C RNA (PCR) log 5.93 IU/mL. C. difficile EIA negative. Urine culture grew Klebsiella pneumonia. 05/04/24: Patient evaluated at bedside today. No acute events overnight. Currently on room air. She had 1 bowel movement last night and 1 bowel movement today. Denies any UTI symptoms thus discontinued Rocephin. Labs today show hemoglobin 10.5, hematocrit 38, sodium 134, potassium 3.3, bicarb 31, Ammonia 75. 05/05/24: Patient seen and examined today.No acute events overnight. Hemodynamically stable. Labs today show hemoglobin 10.9, MCV 106.8, platelet count 75, RDW 17, mild macrocytosis. Patient seen at bedside today and is feeling good and excited about discharge. Patient will be discharged today and is given a script for spironlactone, furosemide, lactulose and rifaximin, titrate for 3-4 bowel movements everyday as well as BMP in 1 week Patient is given a handout for hepatic encephalopathy and is advised to be compliant with medications. Patient is advised to follow-up with PCP in 1-2 days, pulmnologist in 1 week and auto damage appraiser in 1 week. Vital signs are reviewed and stable General: Alert Derm: warm, dry, intact Head: atraumatic, normocephalic, symmetric Eyes: EOMI, anicteric sclera Mouth: no lip lesion, mucus membranes moist Cardiovascular: S1 S2 reg, no murmur Lungs: CTA bilateral, no rhonchi, no rales, no accessory muscle use Abdominal: soft, non-tender to palpataion Extremities: No cyanosis, clubbing, or pedal edema. Neuro: slurred speech A total of 30 minutes of time were spent preparing this complex discharge summary. Patient was discharged on 05/05/24 at 1145. Patient Condition at Discharge: Stable Plan - Discharge Summary Discharge Rx Participant: Yes New Discharge Prescriptions: New Lactulose [Cephulac] 30 gm PO TID 30 Days #4050 ml Rifaximin [Xifaxan] 550 mg PO BID 30 Days #60 tab Spironolactone [Aldactone] 100 mg PO DAILY 14 Days #14 tab Furosemide [Lasix] 20 mg PO BID 14 Days #28 tab Continue Thiamine [Vitamin B-1] 100 mg PO DAILY Multivitamins, Thera [Multivitamin (formulary)] 1 tab PO DAILY Calcium Phos/D3/Magnesium/Zinc [Uxnvixv-Yyv-Blpv-Vitamin D3] 1 tab PO TID PRN PRN Reason: Supplement Albuterol Sulfate [Ventolin HFA] 1 - 2 puff INHALATION RT-QID PRN PRN Reason: Shortness Of Breath Citalopram Hydrobromide [CeleXA] 40 mg PO DAILY Chlorpheniramine Maleate [Chlor-Trimeton] 4 mg PO Q4H PRN PRN Reason: WITHDRAWL SYMPTOMS Gabapentin 600 mg PO BID PRN PRN Reason: NERVE PAIN traZODone HCL [Desyrel] 50 mg PO HS ondansetron HCL [Zofran] 8 mg PO Q6H PRN PRN Reason: Nausea And Vomiting Ibuprofen [Motrin Ib] 600 mg PO Q6H PRN PRN Reason: Fever And/ Or Pain Mylanta Regular Strength 30 ml PO Q4H PRN PRN Reason: GI UPSET busPIRone HCL 15 mg PO TID PRN PRN Reason: Anxiety Docusate [Colace] 100 mg PO BID PRN PRN Reason: Constipation Discharge Medication List Albuterol Sulfate [Ventolin HFA] 1 - 2 puff INHALATION RT-QID PRN 01/05/24 [History] Calcium Phos/D3/Magnesium/Zinc [Mzpjlha-Sey-Rtoe-Vitamin D3] 1 tab PO TID PRN 01/05/24 [History] Citalopram Hydrobromide [CeleXA] 40 mg PO DAILY 01/05/24 [History] Ibuprofen [Motrin Ib] 600 mg PO Q6H PRN 01/05/24 [History] Multivitamins, Thera [Multivitamin (formulary)] 1 tab PO DAILY 01/05/24 [History] Thiamine [Vitamin B-1] 100 mg PO DAILY 01/05/24 [History] ondansetron HCL [Zofran] 8 mg PO Q6H PRN 01/05/24 [History] Mylanta Regular Strength 30 ml PO Q4H PRN 01/10/24 [History] Chlorpheniramine Maleate [Chlor-Trimeton] 4 mg PO Q4H PRN 04/28/24 [History] Docusate [Colace] 100 mg PO BID PRN 04/28/24 [History] Gabapentin 600 mg PO BID PRN 04/28/24 [History] busPIRone HCL 15 mg PO TID PRN 04/28/24 [History] traZODone HCL [Desyrel] 50 mg PO HS 04/28/24 [History] Furosemide [Lasix] 20 mg PO BID 14 Days #28 tab 05/05/24 [Rx] Lactulose [Cephulac] 30 gm PO TID 30 Days #4050 ml 05/05/24 [Rx] Rifaximin [Xifaxan] 550 mg PO BID 30 Days #60 tab 05/05/24 [Rx] Spironolactone [Aldactone] 100 mg PO DAILY 14 Days #14 tab 05/05/24 [Rx] Follow up Appointment(s)/Referral(s): Mayda Rodríguez MD [STAFF PHYSICIAN] - 1 Week (Gastroenterology follow-up for hepatitis C treatment and cirrhosis of the liver with ascites) Sergio Madrigal DO [Doctor of Osteopathic Medicine] - 1 Week [facility] [NON-STAFF] - 1-2 Days Ambulatory/Diagnostic Orders: Basic Metabolic Panel [LAB.AMB] Time Frame: 1 Week, Location: None Selected Patient Instructions/Handouts: Hepatic Encephalopathy (DC) Discharge Disposition: TRANSFER TO SNF/ECF
--- NOTE | 2024-05-05 13:57 | P.PN ---
Subjective Progress Note Date: 05/05/24 Principal diagnosis: Cirrhosis. This is a 59-year-old female patient who appears older than her stated age with a history of congestive heart failure, chronic obstructive pulmonary disease, chronic and ongoing tobacco dependence, hypertension, chronic alcohol abuse, IV drug abuse, hepatitis C, recently at [facility] for cocaine and methadone abuse. She was here back in December with abdominal pain and found to have significant ascites secondary to cirrhosis. She also had acute metabolic encephalopathy due to hyperammonia at that time. She presented here to the emergency room on April 28, 2024 with shortness of breath, dyspnea and fatigue for 2 days prior. Chest x-ray reveals evidence of pulmonary vascular congestion. Yesterday she did undergo an ultrasound-guided paracentesis with 2.5 L of straw-colored fluid removed. She was having altered mental status and a CT scan of the brain revealed no acute intracranial process. Arterial blood gases revealed a PaO2 of 54, pCO2 of 34 and a pH of 7.57 on 28% FiO2. We are consulted for hypoxemia. She is seen today on the selective care unit. She is quite obtunded. Difficult to arouse. She is maintaining O2 saturations in the mid 90s on 3 L/min per nasal cannula. She is afebrile. Hemodynamically stable. Her ammonia level is 124. Count 4.8. Globin 10.3. Platelets 48,000. Sodium 140. Potassium 3.3. Bicarb 31. BUN 15. Creatinine 0.59. Glucose 103. AST 58. ALT 41. Alk phos 171. Viral screen was negative. proBNP 203. Was evaluated today on 05/01/2024, patient was transferred to the ICU yesterday, mostly because of her worsening hepatic encephalopathy and significantly eleva maninder ammonia level. Patient is now on lactulose orally, she is definitely more awake today compared to yesterday, arousable, not back to baseline but definitely arousable and able to take medications orally able to follow instructions, and her ammonia level is down to 54. Hence I plan to transfer the patient back out of the ICU to medical floor.Patient is on 3 L nasal cannula with O2 sat of 95%. WBC count is 5.6 hemoglobin 9.9 basic metabolic profile is normal except for low potassium of 2.8 being addressed accordingly ABG yesterday showed a pO2 of 54 pCO2 34 pH of 7.57, and this was on 28% FiO2. Chest x-ray this morning showed minimal pulmonary vascular congestion patient is already on diuretics The patient is seen today May 02, 2020 for follow-up in the intensive care unit. She is currently sitting up in bed. Awake and alert in no acute distress. Maintaining O2 saturations in the 90s on room air. No IV fluids. She is afebrile. Hemodynamically stable. Urine culture positive for gram- negative bacilli. White count 4.6. Hemoglobin 10.2. Platelets 55,000. Sodium 135. Potassium 3.8. Bicarb 31. BUN 14. Creatinine 0.6. Glucose 148. She remains on bronchodilators. Continued on IV diuretics. Haldol for agitation. Remains on lactulose. Her ammonia level went back up to 104 today. Progress note dated May 03, 2024. 59-year-old female with a history of liver cirrhosis. The patient was in the intensive care unit yesterday but was transferred out, and is seen today, in room 383. She is currently on room air. She is not receiving any IV fluids. S he appears not to be in any distress. She is sitting in her chair next to the hospital bed. Current labs include a white count 4.1, hemoglobin 9.7, hematocrit 30, and a platelet count of 55,000. Sodium 134, potassium 3.5, chlorides 100, CO2 30, BUN 12, creatinine 0.55. Glucose is 137. Calcium is 8.1. Ammonia was 104, and is down to 55. She tested negative for C. difficile. Urine sampling, from May 01, reveals Klebsiella pneumoniae. The patient is currently on Rocephin. Progress note dated May 04, 2024. 59-year-old female with a history of liver cirrhosis secondary to alcohol abuse. The patient was in the intensive care unit for a number of days. Today she is seen in room 383. She is getting saline at 10 cc an hour. She is on room air. She is sitting in the chair next to her hospital bed. She is awake and alert. She is in no distress. Current labs include a white count 4.6, hemoglobin 10.5, hematocrit 32, and a platelet count of 65,000. Sodium 134, potassium 3.3, chlorides 100, CO2 31, BUN 14, creatinine 0.7. Glucose is 115. Ammonia level 75. The patient's urine was also positive for Klebsiella pneumoniae. Progress note dated May 05, 2024. 59-year-old female with a history of liver disease, ascites, pulmonary edema. The patient is seen today in [facility]. She is on room air. No IV fluids. Clinically, the patient is doing much better. She is awake and alert. She denies any difficulty breathing, coughing, chest pain, abdominal discomfort, nausea, vomiting, etc. Labs, x-rays, and all medications are reviewed. Objective - Vital Signs Vital signs: Vital Signs Temp 98.7 F 05/05/24 11:07 Pulse 82 05/05/24 11:07 Resp 19 05/05/24 11:07 BP 141/81 05/05/24 11:07 Pulse Ox 99 05/05/24 11:07 FiO2 Intake & Output 05/04/24 05/05/24 05/05/24 18:59 06:59 18:59 Intake Total 834 360 598 Output Total 500 Balance 334 360 598 Weight 47.5 kg Intake: Oral 834 360 598 Output: Urine 500 Stool 0 Other: Voiding Method Incontinent Toilet Toilet # Voids 1 2 # Bowel Movements 1 - Exam No acute distress, confused. The patient looks much older than her stated age of 59 years. HEENT examination is grossly unremarkable. Mucous membranes are moist. No oral lesions. Neck supple. Full range of motion. No adenopathy thyromegaly or neck vein distention. Cardiovascular examination reveals regular rhythm rate. S1-S2 normal. No S3 or S4. No discernible murmur noted. Lungs reveal mostly clear breath sounds. Minimal scattered rhonchi. No wheezes or crackles. Breath sounds equal. Abdomen soft and distended. No bowel sounds. No masses. Extremities are intact. No cyanosis clubbing or edema. Skin is without rash or lesion. Neurologic examination is brief but nonfocal. - Labs CBC & Chem 7: 05/05/24 07:17 05/05/24 07:17 Labs: Abnormal Lab Results - Last 24 Hours (Table) 05/05/24 05/05/24 05/05/24 Range/Units 07:17 07:17 08:31 RBC 3.28 L (3.80-5.40) m/uL Hgb 10.9 L (11.4-16.0) gm/dL MCV 106.8 H (80.0-100.0) fL RDW 17.0 H (11.5-15.5) % Plt Count 75 L (150-450) k/uL Macrocytosis Marked A Sodium 135 L (137-145) mmol/L Glucose 129 H (74-99) mg/dL Ammonia 45 H (<30) umol/L Assessment and Plan Assessment: Altered mental status secondary to hyperammonemia, secondary to alcoholic liver cirrhosis. Acute hypoxemic respiratory failure secondary to above. Thrombocytopenia secondary to above. Coagulopathy secondary to above. Transaminitis secondary to above. History of alcohol abuse. History of polysubstance abuse including cocaine, heroin, opiates, prescription medications. Chronic and ongoing tobacco dependence. Hypertension. Congestive heart failure. Homelessness. Plan: Plan dated May 03, 2024. The patient is seen today in room 383. The patient appears to be relatively stable. She is on room air. She is not receiving any IV fluids. Labs, x-rays, and all medications are reviewed. The patient was initially in the intensive care unit, but was transferred out yesterday. From the pulmonary standpoint, the patient is ready for discharge. Her respiratory status is currently stable. Long-term prognosis is poor. Plan dated May 04, 2024. The patient appears to be doing relatively well. She is on room air. The patient is getting saline at 10 cc an hour. Labs, x-rays, and all medications are reviewed. We will continue to follow. Prognosis is guarded. Urine was positive for Klebsiella pneumoniae. Plan dated May 05, 2024. The patient is seen today in room 383. The patient is doing well clinically. The patient is awake and alert. She is not on any supplemental oxygen, or IV fluids. We will continue to follow make recommendations along the way. Prognosis is guarded. The patient has a significant history of drug and alcohol abuse. She is counseled about the importance of avoiding those substances. Time with Patient: Less than 30
--- NOTE | 2024-05-05 14:27 | P.PN ---
Subjective Progress Note Date: 05/05/24 Principal diagnosis: Liver cirrhosis, hyperammonemia This pleasant 59-year-old female with a past medical history including IV drug use, COPD, heart failure, hypertension and liver disease secondary to hepatitis C who presented to the emergency department on 04/28/2024 with complaints of shortness of breath, dyspnea and fatigue. Patient was noted to have significantly elevated ammonia level and was admitted to the ICU for closer observation for hepatic encephalopathy. She was started on lactulose initially and Xifaxan was added yesterday. Patient states she was diagnosed with hepatitis C 2 to 3 years ago. States she has not had any treatment. She was a heroin addict and quit 8 months ago. States she is still smoking crack. On admission patient's ammonia level was 124, she was started on lactulose 30 g 4 times daily yesterday it was 57. She was started on Xifaxan. Today is 104. She has had 3 bowel movements so far today. She denies any abdominal pain, naus ea or vomiting. States shortness of breath improved. She had a paracentesis on 04/29/2024 with 2.5 L removed 05/03/2024 Patient seen and examined today as a follow-up. She is alert and oriented. She has been transferred out of the ICU. Repeat ammonia level is 54. She denies any acute changes through the night. No abdominal pain. 05/04/2024 Patient seen and examined today as a follow-up. She is alert and oriented x 3. She denies any abdominal pain, nausea or vomiting. She is having 3-5 bowel movements daily. Her ammonia level did increase today a little bit to 75. But again she has no evident encephalopathy. Plan is for her to return to [place] re[facility] and then she will go to [place] from there into a recovery home. 05/05/2024 Patient seen and examined today as a follow-up no acute changes through the night. No abdominal pain nausea or vomiting. She is alert and oriented x 3. Not encephalopathic. She is having multiple bowel movements a day. Ammonia level 45 today. Objective - Vital Signs Vital signs: Vital Signs Temp 99 F 05/05/24 06:45 Pulse 85 05/05/24 06:45 Resp 18 05/05/24 06:45 BP 117/64 05/05/24 06:45 Pulse Ox 93 L 05/05/24 06:45 FiO2 Intake & Output 05/04/24 05/05/24 05/05/24 18:59 06:59 18:59 Intake Total 834 360 598 Output Total 500 Balance 334 360 598 Weight 47.5 kg Intake: Oral 834 360 598 Output: Urine 500 Stool 0 Other: Voiding Method Incontinent Toilet Toilet # Voids 1 2 # Bowel Movements 1 - Exam General appearance: The patient is alert, oriented, appears in no acute distress. HET: Head is normocephalic and atraumatic. Conjunctiva pink. Sclera anicteric. Neck: Supple without lymphadenopathy. Abdomen: Soft, nontender, nondistended. Extremities: Normal skin color and turgor. No pedal edema Skin: No rashes, no jaundice Neurological: No focal deficits. Alert and oriented. - Labs CBC & Chem 7: 05/05/24 07:17 05/05/24 07:17 Labs: Abnormal Lab Results - Last 24 Hours (Table) 05/05/24 05/05/24 05/05/24 Range/Units 07:17 07:17 08:31 RBC 3.28 L (3.80-5.40) m/uL Hgb 10.9 L (11.4-16.0) gm/dL MCV 106.8 H (80.0-100.0) fL RDW 17.0 H (11.5-15.5) % Plt Count 75 L (150-450) k/uL Macrocytosis Marked A Sodium 135 L (137-145) mmol/L Glucose 129 H (74-99) mg/dL Ammonia 45 H (<30) umol/L Assessment and Plan (1) Cirrhosis Narrative/Plan: 59-year-old female with history of IV drug use with underlying liver disease secondary to hepatitis C. Patient denies any treatment as she has been IV drug user and just recently quit a few months ago. Patient was admitted with shortness of breath and abdominal ascites. She was noted to have significantly elevated ammonia level. Started on lactulose and now Xifaxan. Recommend continuing with the lactulose 30 g 3 times daily with titration to have 3-4 bowel movements, continue Xifaxan 550 mg twice daily. Will obtain hepatitis C serologies. Status: Acute Code(s): K74.60 - UNSPECIFIED CIRRHOSIS OF LIVER SNOMED Code(s): 47785580 (2) Hepatic encephalopathy Narrative/Plan: Improved. Continue with lactulose and Xifaxan as ordered. Status: Acute Code(s): K76.82 - HEPATIC ENCEPHALOPATHY SNOMED Code(s): 16923012 (3) Ascites Narrative/Plan: Increase Aldactone to 100 mg daily, continue Lasix 40 mg daily Status: Acute Code(s): R18.8 - OTHER ASCITES SNOMED Code(s): 176131658 (4) Hepatitis C Status: Acute Code(s): B19.20 - UNSPECIFIED VIRAL HEPATITIS C WITHOUT HEPATIC COMA SNOMED Code(s): 12209449 (5) Heroin abuse Status: Acute Code(s): F11.10 - OPIOID ABUSE, UNCOMPLICATED SNOMED Code(s): 0703099 (6) Hyperammonemia Narrative/Plan: Patient continues to have elevated ammonia levels. She is not encephalopathic anymore. Will continue with current medication. Status: Acute Code(s): E72.20 - DISORDER OF UREA CYCLE METABOLISM, UNSPECIFIED SNOMED Code(s): 5581343 Plan: 1. Continue symptomatic and supportive care 2. Low-sodium diet 3. Continue spironolactone to 100 mg daily, continue Lasix 40 mg daily 4. Lactulose 30 g 3 times daily, titrate to have 3-4 bowel movements daily 5. Continue Xifaxan 550 mg twice daily 6. Hepatitis C serologies ordered 7. Continue abstinence from IV drug use 8. Recommend outpatient follow-up with gastroenterology for hepatitis treatment and liver cirrhosis 9. Patient is cleared from gastroenterology for discharge Thank you for this consultation. Dr. Paulina Rodríguez I agree with the dictator's note, documented as a scribe by Sherry Reid.
== END 2024-05-05 13:34 | DRG 280 ==
LOC: EC 17:32 → 3SCARD 20:16 → OBSVTOIN 20:17 → 3SCARD 20:34 → 2SICU 04-30 16:26 → 3SCARD 05-02 15:15
PROVIDERS: ADMIT Internal Medicine; ATTEND Internal Medicine
PROC: 0W9G3ZZ Drainage of Peritoneal Cavity, Percutaneous Approach (ICD-10-PCS; principal; 2024-04-29)
PROC: 0DH67UZ Insertion of Feeding Device into Stomach, Via Natural or Artificial Opening (ICD-10-PCS; 2024-04-30)
DX: K70.31 Alcoholic cirrhosis of liver with ascites (principal); K76.6 Portal hypertension; K76.82 Hepatic encephalopathy; K80.20 Calculus of gallbladder without cholecystitis without obstruction; Z59.00 Homelessness unspecified; J96.01 Acute respiratory failure with hypoxia; J44.9 Chronic obstructive pulmonary disease, unspecified; I50.9 Heart failure, unspecified; I11.0 Hypertensive heart disease with heart failure; G93.41 Metabolic encephalopathy; G62.9 Polyneuropathy, unspecified; F41.9 Anxiety disorder, unspecified; F32.A Depression, unspecified; D68.9 Coagulation defect, unspecified; F17.200 Nicotine dependence, unspecified, uncomplicated; D69.59 Other secondary thrombocytopenia; F10.10 Alcohol abuse, uncomplicated; F14.10 Cocaine abuse, uncomplicated; F11.10 Opioid abuse, uncomplicated; R91.1 Solitary pulmonary nodule; E87.6 Hypokalemia; D75.89 Other specified diseases of blood and blood-forming organs; B19.20 Unspecified viral hepatitis C without hepatic coma; F43.10 Post-traumatic stress disorder, unspecified; Z20.822 Contact with and (suspected) exposure to COVID-19; Z28.310 Unvaccinated for COVID-19; Z98.1 Arthrodesis status; Z79.899 Other long term (current) drug therapy; Z88.1 Allergy status to other antibiotic agents
CPT/HCPCS: 36415; 36600; 49083; 70450; 71045; 71046; 71275; 80048; 80053; 80306; 82140; 82805; 83605; 83735; 83880; 84132; 84484; 85025; 85027; 85379; 85610; 85730; 87077; 87086; 87186; 87324; 87522; 87636; 93005; 94760; 96374; 99285

== ENCOUNTER 2024-05-08 11:25 | Observation (INO) | payer OTHER ==
[2024-05-08] MEDS: SODIUM CHLORIDE 0.9% 1,000 ML IV STA (11:51)
[2024-05-08 12:15] LABS: Anisocytosis Slight; Basophils % (A) 1 %; Eosinophils # (A) 0.1 k/uL (0-0.7); Eosinophils % (A) 2 %; HCT 30.3 % (34.0-46.0); HGB 9.7 gm/dL (11.4-16.0); Hypochromasia Slight; Lymphocytes # (A) 0.6 k/uL (1.0-4.8); Lymphocytes % (A) 13 %; MCH 33.7 pg (25.0-35.0); MCV 105.5 fL (80.0-100.0); Macrocytosis Marked; Mean Platelet Volume 10.2; Monocytes # (A) 0.3 k/uL (0-1.0); Monocytes % (A) 7 %; Neutrophils # (A) 3.2 k/uL (1.3-7.7); Neutrophils % (A) 73 %; RBC 2.87 m/uL (3.80-5.40); RDW 17.5 % (11.5-15.5); WBC 4.4 k/uL (3.8-10.6)
[2024-05-08 12:16] LABS: ALT 51 U/L (4-34); AST 75 U/L (14-36); African American GFR (CKD) >90 (>60 ml/min/1.73 sqM); Alkaline Phosphatase 212 U/L (38-126); Anion Gap 4 mmol/L; Blood Urea Nitrogen 25 mg/dL (7-17); Calcium 8.3 mg/dL (8.4-10.2); Carbon Dioxide 27 mmol/L (22-30); Chloride 106 mmol/L (98-107); Magnesium 2.2 mg/dL (1.6-2.3); Non-African American GFR(CKD) >90 (>60 ml/min/1.73 sqM); Platelet Count 55 k/uL (150-450); Potassium 4.3 mmol/L (3.5-5.1); Sodium 137 mmol/L (137-145); Total Bilirubin 1.8 mg/dL (0.2-1.3); Total Protein 6.1 g/dL (6.3-8.2)
[2024-05-08 12:36] LABS: Glucose 43 mg/dL (74-99)
[2024-05-08] MEDS: DEXTROSE 50% SYRINGE 50 ML IVP STA (12:41)
--- NOTE | 2024-05-08 12:43 | CT ---
EXAMINATION TYPE: CT brain wo con DATE OF EXAM: 05/08/2024 HISTORY: SEIZURE CT DLP: 1096.4 mGycm. Automated Exposure Control for Dose Reduction was Utilized. TECHNIQUE: CT scan of the head is performed without contrast. COMPARISON: CT brain April 30, 2024 FINDINGS: There is no acute intracranial hemorrhage or midline shift identified. Persistent right f rontal and temporal craniectomy. Ventricles and sulci are within normal limits in size for patient's age. [place]-white matter differentiation is maintained The globes are intact and the visualized sinuse s are clear. Stimulator leads redemonstrated terminating near the posterior aspect of the foramen mag num. IMPRESSION: No acute intracranial hemorrhage or midline shift. No significant change from most recen t prior CT. [facility], , 05/08/2024 12:41 PM
[2024-05-08 12:58] LABS: Glucose,Whole Blood 153 mg/dL (70-110)
--- NOTE | 2024-05-08 13:07 | ED ---
Seizure HPI - General Chief Complaint: Seizure Stated Complaint: Seizure Time Seen by Provider: 05/08/24 11:30 Source: EMS, RN notes reviewed Mode of arrival: EMS Limitations: altered mental status - History of Present Illness Initial Comments: 59-year-old female presents emergency department from [facility] for reported seizure. Patient has no history of seizures patient reportedly had a long seizure and was given 2 mg Ativan IM by [facility]. Patient has been postictal, drowsy from medication. Patient is unable to provide any information currently. Patient was recently discharged for ascites, acute hepatic encephalopathy patient had no reported head injury. - Related Data Home Medications Medication Instructions Recorded Confirmed Albuterol Sulfate [Ventolin HFA] 2 puff INHALATION RT-QID PRN 01/05/24 05/08/24 Calcium Phos/D3/Magnesium/Zinc 1 tab PO TID PRN 01/05/24 05/08/24 [Pcnjopj-Kyk-Gzpi-Vitamin D3] Citalopram Hydrobromide [CeleXA] 40 mg PO DAILY 01/05/24 05/08/24 Ibuprofen [Motrin Ib] 600 mg PO Q6H PRN 01/05/24 05/08/24 Multivitamins, Thera [Multivitamin 1 tab PO DAILY 01/05/24 05/08/24 (formulary)] Thiamine [Vitamin B-1] 100 mg PO DAILY 01/05/24 05/08/24 ondansetron HCL [Zofran] 8 mg PO Q6H PRN 01/05/24 05/08/24 Mylanta Regular Strength 30 ml PO Q4H PRN 01/10/24 05/08/24 Chlorpheniramine Maleate 4 mg PO Q4H PRN 04/28/24 05/08/24 [Chlor-Trimeton] Docusate [Colace] 100 mg PO BID PRN 04/28/24 05/08/24 Gabapentin 600 mg PO BID PRN 04/28/24 05/08/24 busPIRone HCL 15 mg PO TID 04/28/24 05/08/24 traZODone HCL [Desyrel] 50 mg PO HS 04/28/24 05/08/24 Spironolactone [Aldactone] 25 mg PO DAILY 05/08/24 05/08/24 Previous Rx's Medication Instructions Recorded Furosemide [Lasix] 20 mg PO BID Days #28 tab 05/05/24 Lactulose [Cephulac] 30 gm PO TID 30 Days #4050 ml 05/05/24 Allergies Allergy/AdvReac Type Severity Reaction Status Date / Time levofloxacin [From Levaquin] Allergy Rash/Hives Verified 05/08/24 14:30 tetracycline Allergy Rash/Hives Verified 05/08/24 14:30 Review of Systems ROS Statement: Those systems with pertinent positive or pertinent negative responses have been documented in the HPI. ROS Other: All systems not noted in ROS Statement are negative. Past Medical History Past Medical History: Heart Failure, COPD, Hypertension, Liver Disease Additional Past Medical History / Comment(s): hep C, drug abuse History of Any Multi-Drug Resistant Organisms: MRSA Date of last positivie culture/infection: 1999 MDRO Source:: skull Past Surgical History: Orthopedic Surgery Additional Past Surgical History / Comment(s): C1C2 fusion. Fusion thoracic spine. Brain bleed sx Past Anesthesia/Blood Transfusion Reactions: No Reported Reaction Past Psychological History: PTSD Smoking Status: Current every day smoker Past Alcohol Use History: Occasional Past Drug Use History: Cocaine, Heroin, Opiates, Prescription Drug Abuse General Exam Limitations: altered mental status General appearance: alert, in no apparent distress Head exam: Present: atraumatic, normal inspection. Absent: normocephalic (Prior craniectomy) Eye exam: Present: normal appearance, PERRL, EOMI. Absent: scleral icterus, conjunctival injection, periorbital swelling ENT exam: Present: normal exam, normal oropharynx, mucous membranes moist Neck exam: Present: normal inspection, full ROM. Absent: tenderness, meningismus, lymphadenopathy Respiratory exam: Present: normal lung sounds bilaterally. Absent: respiratory distress, wheezes, rales, rhonchi, stridor Cardiovascular Exam: Present: regular rate, normal rhythm, normal heart sounds. Absent: systolic murmur, diastolic murmur, rubs, gallop, clicks Neurological exam: Absent: alert Skin exam: Present: warm, dry, intact, normal color. Absent: rash Course Vital Signs 05/08/24 05/08/24 05/08/24 11:26 12:24 12:47 Temperature 97.6 F Pulse Rate 92 87 80 Respiratory 24 16 20 Rate Blood Pressure 84/56 80/52 80/40 O2 Sat by Pulse 97 97 98 Oximetry 05/08/24 05/08/24 05/08/24 13:18 14:14 14:34 Temperature Pulse Rate 87 80 Respiratory 16 18 Rate Blood Pressure 88/62 114/66 79/53 O2 Sat by Pulse 97 98 Oximetry 05/08/24 05/08/24 05/08/24 14:50 15:12 16:02 Temperature Pulse Rate 82 80 Respiratory 18 18 18 Rate Blood Pressure 98/52 84/55 O2 Sat by Pulse 98 98 Oximetry Medical Decision Making - Medical Decision Making Was pt. sent in by a medical professional or institution (, PA, JUVENILE COURT JUDGE, urgent care, hospital, or half-way...) When possible be specific @ -[facility] Did you speak to anyone other than the patient for history (EMS, parent, family, police, friend...)? What history was obtained from this source @ -No Did you review nursing and triage notes (agree or disagree)? Why? @ -I reviewed and agree with nursing and triage notes Were old charts reviewed (outside hosp., previous admission, EMS record, old EKG, old radiological studies, urgent care reports/EKG's, half-way records)? Report findings @ -Recent inpatient records including laboratory studies pulmonary and GI evaluations Differential Diagnosis (chest pain, altered mental status, abdominal pain women, abdominal pain men, vaginal bleeding, weakness, fever, dyspnea, syncope, headache, dizziness, GI bleed, back pain, seizure, CVA, palpatations, mental health, musculoskeletal)? @ -Differential Seizure: Recurrent seizure disorder, febrile seizure, alcohol withdrawal, stimulants, meningitis, encephalitis, intercranial hemorrhage, intracranial tumor, stroke, eclampsia, thyrotoxicosis, hypocalcemia, hyponatremia, hypernatremia, hypomagnesemia, psychogenic, this is not meant to be an all-inclusive list. EKG interpreted by me (3pts min.). @ -As above X-rays interpreted by me (1pt min.). @ -None done CT interpreted by me (1pt min.). @ -CT brain showing no acute interval cranial hemorrhage or mass effect no acute changes there is old craniotomy noted U/S interpreted by me (1pt. min.). @ -None done What testing was considered but not performed or refused? (CT, X-rays, U/S, labs)? Why? @ -None What meds were considered but not given or refused? Why? @ -None Did you discuss the management of the patient with other professionals (professionals i.e. , PA, JUVENILE COURT JUDGE, lab, RT, psych nurse, professor of social work, creative resource manager, teacher, house officer, immigration case manager)? Give summary @ -Dr. Scales for admission secondary to recent discharge from their services and recurrent symptoms. Was smoking cessation discussed for >3mins.? @ -No Was critical care preformed (if so, how long)? @ -No Were there social determinants of health that impacted care today? How? (Homelessness, low income, unemployed, alcoholism, drug addiction, transportation, low edu. Level, literacy, decrease access to med. care, nursing home, rehab)? @ -No Was there de-escalation of care discussed even if they declined (Discuss DNR or withdrawal of care, Hospice)? DNR status @ -No What co-morbidities impacted this encounter? (DM, HTN, Smoking, COPD, CAD, Cancer, CVA, ARF, Chemo, Hep., AIDS, mental health diagnosis, sleep apnea, morbid obesity)? @ -None Was patient admitted / discharged? Hospital course, mention meds given and route, prescriptions, significant lab abnormalities, going to OR and other pertinent info. @ -Admitted patient presented for witnessed seizure by [facility] milligrams and has been very drowsy but arousable. She has no complaints she has no obvious signs infection, CT, or neuro unremarkable. Patient has no acute lundy es on laboratory parts. She is afebrile patient will be admitted for observation Undiagnosed new problem with uncertain prognosis? @ -No Drug Therapy requiring intensive monitoring for toxicity (Heparin, Nitro, Insulin, Cardizem)? @ -No Were any procedures done? @ -No Diagnosis/symptom? @ -Seizure, altered mental status Acute, or Chronic, or Acute on Chronic? @ -Acute Uncomplicated (without systemic symptoms) or Complicated (systemic symptoms)? @ -Uncomplicated Side effects of treatment? @ -No Exacerbation, Progression, or Severe Exacerbation? @ -No Poses a threat to life or bodily function? How? (Chest pain, [place], [place], pneumonia, PE, COPD, DKA, ARF, appy, cholecystitis, CVA, Diverticulitis, Homicidal, Suicidal, threat to staff... and all critical care pts) @ -No - Lab Data Result diagrams: 05/08/24 11:38 05/08/24 11:38 Lab Results 05/08/24 05/08/24 05/08/24 Range/Units 11:38 11:38 11:38 WBC 4.4 (3.8-10.6) k/uL RBC 2.87 L (3.80-5.40) m/uL Hgb 9.7 L (11.4-16.0) gm/dL Hct 30.3 L (34.0-46.0) % MCV 105.5 H (80.0-100.0) fL MCH 33.7 (25.0-35.0) pg MCHC 32.0 (31.0-37.0) g/dL RDW 17.5 H (11.5-15.5) % Plt Count 55 L (150-450) k/uL MPV 10.2 Neutrophils % 73 % Lymphocytes % 13 % Monocytes % 7 % Eosinophils % 2 % Basophils % 1 % Neutrophils # 3.2 (1.3-7.7) k/uL Lymphocytes # 0.6 L (1.0-4.8) k/uL Monocytes # 0.3 (0-1.0) k/uL Eosinophils # 0.1 (0-0.7) k/uL Basophils # 0.0 (0-0.2) k/uL Manual Slide Review Performed Hypochromasia Slight Anisocytosis Slight Macrocytosis Marked A Ovalocytes Present Sodium 137 (137-145) mmol/L Potassium 4.3 (3.5-5.1) mmol/L Chloride 106 (98-107) mmol/L Carbon Dioxide 27 (22-30) mmol/L Anion Gap 4 mmol/L BUN 25 H (7-17) mg/dL Creatinine 0.68 (0.52-1.04) mg/dL Est GFR (CKD-EPI)AfAm >90 (>60 ml/min/1.73 sqM) Est GFR (CKD-EPI)NonAf >90 (>60 ml/min/1.73 sqM) Glucose 43 L* (74-99) mg/dL POC Glucose (mg/dL) (70-110) mg/dL POC Glu Orchid Hand ID Calcium 8.3 L (8.4-10.2) mg/dL Magnesium 2.2 (1.6-2.3) mg/dL Total Bilirubin 1.8 H (0.2-1.3) mg/dL AST 75 H (14-36) U/L ALT 51 H (4-34) U/L Alkaline Phosphatase 212 H (38-126) U/L Ammonia (<30) umol/L Troponin I 0.020 (0.000-0.034) ng/mL Total Protein 6.1 L (6.3-8.2) g/dL Albumin 3.0 L (3.5-5.0) g/dL 05/08/24 05/08/24 05/08/24 Range/Units 11:47 12:57 14:02 WBC (3.8-10.6) k/uL RBC (3.80-5.40) m/uL Hgb (11.4-16.0) gm/dL Hct (34.0-46.0) % MCV (80.0-100.0) fL MCH (25.0-35.0) pg MCHC (31.0-37.0) g/dL RDW (11.5-15.5) % Plt Count (150-450) k/uL MPV Neutrophils % % Lymphocytes % % Monocytes % % Eosinophils % % Basophils % % Neutrophils # (1.3-7.7) k/uL Lymphocytes # (1.0-4.8) k/uL Monocytes # (0-1.0) k/uL Eosinophils # (0-0.7) k/uL Basophils # (0-0.2) k/uL Manual Slide Review Hypochromasia Anisocytosis Macrocytosis Ovalocytes Sodium (137-145) mmol/L Potassium (3.5-5.1) mmol/L Chloride (98-107) mmol/L Carbon Dioxide (22-30) mmol/L Anion Gap mmol/L BUN (7-17) mg/dL Creatinine (0.52-1.04) mg/dL Est GFR (CKD-EPI)AfAm (>60 ml/min/1.73 sqM) Est GFR (CKD-EPI)NonAf (>60 ml/min/1.73 sqM) Glucose (74-99) mg/dL POC Glucose (mg/dL) 153 H 106 (70-110) mg/dL POC Glu Orchid Hand ID [place] Layne Lisa Calcium (8.4-10.2) mg/dL Magnesium (1.6-2.3) mg/dL Total Bilirubin (0.2-1.3) mg/dL AST (14-36) U/L ALT (4-34) U/L Alkaline Phosphatase (38-126) U/L Ammonia <9 (<30) umol/L Troponin I (0.000-0.034) ng/mL Total Protein (6.3-8.2) g/dL Albumin (3.5-5.0) g/dL - EKG Data -: EKG Interpreted by Sc EKG Comments: EKG performed at 11: 42 sinus rhythm rate of 88 MS 152 QRS 90 QT/QTc 392/438 Disposition Clinical Impression: Generalized seizure, AMS (altered mental status) Disposition: ADMITTED IP TO THIS [facility] Condition: Poor Referrals: None,Stated [Primary Care Provider] - 1-2 days Time of Disposition: 16:24
[2024-05-08 13:16] LABS: Ovalocytes Present
[2024-05-08] MEDS: SODIUM CHLORIDE 0.9% 1,000 ML IV ONE (13:19)
[2024-05-08 14:05] LABS: Glucose,Whole Blood 106 mg/dL (70-110)
--- NOTE | 2024-05-08 14:12 | XR ---
EXAMINATION TYPE: XR chest 1V DATE OF EXAM: 05/08/2024 COMPARISON: Chest x-ray one week earlier HISTORY: Altered mental status and weakness. TECHNIQUE: Single frontal view of the chest is obtained. FINDINGS: There is chronic parenchymal changes with possible mild central vascular congestion and ti ny left pleural effusion. Left basilar opacity favors atelectasis. The cardiac silhouette size is up per limits of normal. Surgical changes cervical spine is redemonstrated. IMPRESSION: Possible fluid overload state, correlate clinically. [facility], , 05/08/2024 2:10 PM
[2024-05-08] MEDS: NALOXONE 0.4 MG/ML 1 ML VIAL IVP STA (14:50)
[2024-05-08] MEDS ORDERED: NALOXONE 0.4 MG/ML 1 ML VIAL IV PRN (16:24)
[2024-05-08] MEDS: SODIUM CHLORIDE 0.9% 1,000 ML IV SCH (16:49)
--- NOTE | 2024-05-08 17:33 | P.HPIM ---
History of Present Illness H&P Date: 05/08/24 Chief Complaint: Seizures 59-year-old female, history of hypertension, COPD, CHF, liver disease, presents emergency department from [place] for reported seizure. Patient has no history of seizures patient reportedly had a long seizure and was given 2 mg Ativan IM by [place]. Patient has been postictal, drowsy from medication. Patient is unable to provide any information currently. Patient was recently discharged for ascites, acute hepatic encephalopathy patient had no reported head injury. Blood work completed in ED reveals a WBC of 4.4, hemoglobin of 9.7 and platelet count of 55, sodium 137, potassium 4.3, BUNs/creatinine of 25/0.68 and blood glucose of 43, troponin of 0.020, total bilirubin 1.8, AST of 75, ALT 51 and alkaline phosphatase of 212, repeat blood glucose of 153, ammonia less than 9 CT of the brain does not reveal any acute intracranial hemorrhage or midline shift. No significant change from most recent prior CT Chest x-ray reveals possible fluid overload state, correlate clinically Patient is being admitted for further neurological workup for new onset seizures versus EtOH related seizures Review of Systems ROS unobtainable: due to mental status Past Medical History Past Medical History: Heart Failure, COPD, Hypertension, Liver Disease Additional Past Medical History / Comment(s): hep C, drug abuse History of Any Multi-Drug Resistant Organisms: MRSA Date of last positivie culture/infection: 1999 MDRO Source:: skull Past Surgical History: Orthopedic Surgery Additional Past Surgical History / Comment(s): C1C2 fusion. Fusion thoracic spine. Brain bleed sx Past Anesthesia/Blood Transfusion Reactions: No Reported Reaction Past Psychological History: PTSD Smoking Status: Current every day smoker Past Alcohol Use History: Occasional Past Drug Use History: Cocaine, Heroin, Opiates, Prescription Drug Abuse Medications and Allergies Home Medications Medication Instructions Recorded Confirmed Type Albuterol Sulfate [Ventolin HFA] 2 puff INHALATION RT-QID PRN 01/05/24 05/08/24 History Calcium Phos/D3/Magnesium/Zinc 1 tab PO TID PRN 01/05/24 05/08/24 History [Zgikdvi-Mcl-Nazm-Vitamin D3] Citalopram Hydrobromide [CeleXA] 40 mg PO DAILY 01/05/24 05/08/24 History Ibuprofen [Motrin Ib] 600 mg PO Q6H PRN 01/05/24 05/08/24 History Multivitamins, Thera [Multivitamin 1 tab PO DAILY 01/05/24 05/08/24 History (formulary)] Thiamine [Vitamin B-1] 100 mg PO DAILY 01/05/24 05/08/24 History ondansetron HCL [Zofran] 8 mg PO Q6H PRN 01/05/24 05/08/24 History Mylanta Regular Strength 30 ml PO Q4H PRN 01/10/24 05/08/24 History Chlorpheniramine Maleate 4 mg PO Q4H PRN 04/28/24 05/08/24 History [Chlor-Trimeton] Docusate [Colace] 100 mg PO BID PRN 04/28/24 05/08/24 History Gabapentin 600 mg PO BID PRN 04/28/24 05/08/24 History busPIRone HCL 15 mg PO TID 04/28/24 05/08/24 History traZODone HCL [Desyrel] 50 mg PO HS 04/28/24 05/08/24 History Furosemide [Lasix] 20 mg PO BID 14 Days #28 tab 05/05/24 05/08/24 Rx Lactulose [Cephulac] 30 gm PO TID 30 Days #4050 ml 05/05/24 05/08/24 Rx Spironolactone [Aldactone] 25 mg PO DAILY 05/08/24 05/08/24 History Allergies Allergy/AdvReac Type Severity Reaction Status Date / Time levofloxacin [From Levaquin] Allergy Rash/Hives Verified 05/08/24 14:30 tetracycline Allergy Rash/Hives Verified 05/08/24 14:30 Physical Exam Vitals: Vital Signs Temp Pulse Resp BP Pulse Ox 05/08/24 17:00 97.6 F 74 20 94/52 98 05/08/24 16:02 80 18 84/55 98 05/08/24 15:12 82 18 98/52 98 05/08/24 14:50 18 05/08/24 14:34 79/53 05/08/24 14:14 80 18 114/66 98 05/08/24 13:18 87 16 88/62 97 05/08/24 12:47 80 20 80/40 98 05/08/24 12:24 87 16 80/52 97 05/08/24 11:26 97.6 F 92 24 84/56 97 Intake and Output 05/08/24 05/08/24 05/08/24 06:59 14:59 22:59 Other: Weight 52.163 kg Limitations: altered mental status General appearance: alert, in no apparent distress Head exam: Present: atraumatic, normal inspection. Absent: normocephalic (Prior craniectomy) Eye exam: Present: normal appearance, PERRL, EOMI. Absent: scleral icterus, conjunctival injection, periorbital swelling ENT exam: Present: normal exam, normal oropharynx, mucous membranes moist Neck exam: Present: normal inspection, full ROM. Absent: tenderness, meningismus, lymphadenopathy Respiratory exam: Present: normal lung sounds bilaterally. Absent: respiratory distress, wheezes, rales, rhonchi, stridor Cardiovascular Exam: Present: regular rate, normal rhythm, normal heart sounds. Absent: systolic murmur, diastolic murmur, rubs, gallop, clicks Neurological exam: Absent: alert Skin exam: Present: warm, dry, intact, normal color. Absent: rash Results CBC & Chem 7: 05/08/24 11:38 05/08/24 11:38 Labs: Abnormal Lab Results - Last 24 Hours (Table) 05/08/24 05/08/24 05/08/24 Range/Units 11:38 11:38 12:57 RBC 2.87 L (3.80-5.40) m/uL Hgb 9.7 L (11.4-16.0) gm/dL Hct 30.3 L (34.0-46.0) % MCV 105.5 H (80.0-100.0) fL RDW 17.5 H (11.5-15.5) % Plt Count 55 L (150-450) k/uL Lymphocytes # 0.6 L (1.0-4.8) k/uL Macrocytosis Marked A BUN 25 H (7-17) mg/dL Glucose 43 L* (74-99) mg/dL POC Glucose (mg/dL) 153 H (70-110) mg/dL Calcium 8.3 L (8.4-10.2) mg/dL Total Bilirubin 1.8 H (0.2-1.3) mg/dL AST 75 H (14-36) U/L ALT 51 H (4-34) U/L Alkaline Phosphatase 212 H (38-126) U/L Total Protein 6.1 L (6.3-8.2) g/dL Albumin 3.0 L (3.5-5.0) g/dL Assessment and Plan Assessment: 1. Generalized seizure; new onset seizure disorder versus seizure triggered by hypoglycemia versus EtOH withdrawal -Patient received IM Ativan at rehab facility -Will be admitted for further neurowork-up and neurology consultation -Place neuro checks per protocol; seizure precautions -IV Ativan to be used as needed; will order prolactin levels -Consult neurology 2. Altered mental status; likely related to generalized seizure -CT of the head is negative for any acute abnormality 3. Chronic alcoholic liver disease; patient is currently on thiamine 100 mg daily; Aldactone 25 mg daily; lactulose 30 mg p.o. 3 times daily; Lasix 20 mg daily -All oral medications have been placed on hold till mental status improves 4. Anxiety/depression; BuSpar 15 mg 3 times daily; Celexa 40 mg daily DVT prophylaxis; SCDs CODE STATUS; full code
[2024-05-08 19:57] LABS: Glucose,Whole Blood 83 mg/dL (70-110)
[2024-05-08 22:53] LABS: Appearance,Urine Clear (Clear); Bilirubin,Urine Negative (Negative); Blood,Urine Negative (Negative); Color,Urine Yellow; Glucose,Urine (UA) Negative (Negative); Ketones,Urine Negative (Negative); Leukocyte Esterase,Urine Negative (Negative); Nitrite,Urine Negative (Negative); PH, Urine 5.5 (5.0-8.0); Protein,Urine Negative (Negative); Specific Gravity,Urine 1.014 (1.001-1.035); Urobilinogen,Urine <2.0 mg/dL (<2.0)
[2024-05-09 00:39] LABS: Glucose,Whole Blood 93 mg/dL (70-110)
[2024-05-09 06:31] LABS: Glucose,Whole Blood 95 mg/dL (70-110)
[2024-05-09] MEDS ORDERED: LORazepam 2 MG/ML INJ IV PRN (08:40)
[2024-05-09] MEDS: levETIRAcetam IV 500 MG/5 ML VIAL IVP SCH (09:20)
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
[2024-05-09 10:52] LABS: Glucose,Whole Blood 184 mg/dL (70-110)
--- NOTE | 2024-05-09 12:29 | P.PN ---
Subjective Progress Note Date: 05/09/24 Principal diagnosis: Hospital course: 59-year-old female, history of hypertension, COPD, CHF, liver disease, presents emergency department from [facility] for reported seizure. Patient has no history of seizures patient reportedly had a long seizure and was given 2 mg Ativan IM by [facility]. Patient has been postictal, drowsy from medication. Patient is unable to provide any information currently. Patient was recently discharged for ascites, acute hepatic encephalopathy patient had no reported head injury. Blood work completed in ED reveals a WBC of 4.4, hemoglobin of 9.7 and platelet count of 55, sodium 137, potassium 4.3, BUNs/creatinine of 25/0.68 and blood glucose of 43, troponin of 0.020, total bilirubin 1.8, AST of 75, ALT 51 and alkaline phosphatase of 212, repeat blood glucose of 153, ammonia less than 9 CT of the brain does not reveal any acute intracranial hemorrhage or midline shift. No significant change from most recent prior CT Chest x-ray reveals possible fluid overload state, correlate clinically Patient is being admitted for further neurological workup for new onset seizures versus EtOH related seizures 05/09/24: Patient seen and examined at bedside today. UA is negative. No new c omplaints today. Glucose today is 184. Review of systems: Pertinent positives and negatives as discussed in HPI, a complete review of systems was performed and all other systems are negative. Vitals: Signs Reviewed Physical examination: General: appears at stated age Derm: warm, dry, intact Head: atraumatic, normocephalic, symmetric, (Prior craniectomy) Mouth: no lip lesion, mucus membranes moist Cardiovascular: S1 S2 reg, no murmur Lungs: CTA bilateral, no rhonchi, no rales, no accessory muscle use Abdominal: soft, non-tender to palpataion Extremities: No cyanosis, clubbing, or pedal edema. Neuro: Alert and oriented Psych: well appearing, appropriate affect Assessment/Plan: Patient is a 59 year old female with PMH of CHF, COPD, hypertension,liver cirrhosis, ascites and previous intracerebral hemorrhage who presented with seizures and altered mental status from [facility] rehab. She has been started on Keppra and EEG is ordered. Active: #. Generalised seizure, new onset vs secondary to hypoglycemia vs secondary to alcohol withdrawal #. Altered mental status, likely related to generalized seizure #. Previous intracerebral hemorrhage S/p IM ativan 2 mg at the rehab CT of the head is negative for any acute abnormality Dextrose administered in the ED Keppra 500 mg IVP Q12HR added Continue Ativan 2mg IV Q1HR PRN Check prolactin level EEG ordered Seizure precautions Telemetry monitoring Neurology is following #. Left foot drop PT consulted May need referral for Left ankle brace in the future Chronic: #. Chronic alcoholic liver disease Continue Home meds thiamine 100 mg daily; Aldactone 25 mg daily; lactulose 30 mg p.o. 3 times daily IV lasix 20 mg Q12HR #. Anxiety/depression Continue Home meds Buspar 15 mg 3 times daily; Celexa 40 mg daily, Trazodone 50 mg PO HS #. Neuropathy Continue Gabapentin 600 mg PO BID PRN F: 0.9 normal saline at 75 ml/hr E: Replete as required N: Regular diet A: DVT prophylaxis: SCD GI prophylaxis: Pantoprazole 40 mg PO Daily Objective - Vital Signs Vital signs: Vital Signs Temp 98.6 F 05/09/24 07:33 Pulse 93 05/09/24 07:33 Resp 22 05/09/24 07:33 BP 100/72 05/09/24 07:33 Pulse Ox 94 L 05/09/24 07:33 FiO2 Intake & Output 05/08/24 05/09/24 05/09/24 18:59 06:59 18:59 Weight 52.163 kg - Labs CBC & Chem 7: 05/08/24 11:38 05/08/24 11:38 Labs: Abnormal Lab Results - Last 24 Hours (Table) 05/08/24 05/08/24 05/08/24 Range/Units 11:38 11:38 12:57 RBC 2.87 L (3.80-5.40) m/uL Hgb 9.7 L (11.4-16.0) gm/dL Hct 30.3 L (34.0-46.0) % MCV 105.5 H (80.0-100.0) fL RDW 17.5 H (11.5-15.5) % Plt Count 55 L (150-450) k/uL Lymphocytes # 0.6 L (1.0-4.8) k/uL Macrocytosis Marked A BUN 25 H (7-17) mg/dL Glucose 43 L* (74-99) mg/dL POC Glucose (mg/dL) 153 H (70-110) mg/dL Calcium 8.3 L (8.4-10.2) mg/dL Total Bilirubin 1.8 H (0.2-1.3) mg/dL AST 75 H (14-36) U/L ALT 51 H (4-34) U/L Alkaline Phosphatase 212 H (38-126) U/L Total Protein 6.1 L (6.3-8.2) g/dL Albumin 3.0 L (3.5-5.0) g/dL
[2024-05-09] MEDS: ALBUTEROL NEBULIZED 2.5 MG/3 ML INHALATION PRN (14:47)
[2024-05-09] MEDS: LACTULOSE 20 GM/30 ML CUP PO SCH (15:38)
[2024-05-09] MEDS: busPIRone HCl 5 MG TAB PO SCH (15:38)
[2024-05-09 16:32] LABS: Glucose,Whole Blood 124 mg/dL (70-110)
[2024-05-09] MEDS: traZODone HCL 50 MG TAB PO SCH (19:47)
[2024-05-09] MEDS: FUROSEMIDE 10 MG/ML 2 ML VIAL IV SCH (19:47)
[2024-05-09 20:05] LABS: Glucose,Whole Blood 196 mg/dL (70-110)
[2024-05-10] MEDS: PANTOPRAZOLE 40 MG TABLET PO SCH (05:07)
[2024-05-10 06:18] LABS: Glucose,Whole Blood 187 mg/dL (70-110)
[2024-05-10 07:05] LABS: Anisocytosis Slight; HCT 29.6 % (34.0-46.0); HGB 9.2 gm/dL (11.4-16.0); Hypochromasia Marked; MCH 33.6 pg (25.0-35.0); MCV 108.2 fL (80.0-100.0); Macrocytosis Marked; RBC 2.74 m/uL (3.80-5.40); RDW 17.1 % (11.5-15.5)
[2024-05-10 07:11] LABS: Platelet Count 62 k/uL (150-450)
[2024-05-10 07:18] LABS: African American GFR (CKD) >90 (>60 ml/min/1.73 sqM); Anion Gap 3 mmol/L; Blood Urea Nitrogen 15 mg/dL (7-17); Calcium 7.5 mg/dL (8.4-10.2); Carbon Dioxide 24 mmol/L (22-30); Chloride 107 mmol/L (98-107); Glucose 161 mg/dL (74-99); Non-African American GFR(CKD) >90 (>60 ml/min/1.73 sqM); Sodium 134 mmol/L (137-145)
[2024-05-10] MEDS: THIAMINE 100 MG TAB PO SCH (09:00)
[2024-05-10] MEDS: GABAPENTIN 300 MG CAP PO PRN (09:00)
[2024-05-10] MEDS: CITALOPRAM HYDROBROMIDE 20 MG TAB PO SCH (09:00)
[2024-05-10] MEDS: SPIRONOLACTONE 25 MG TAB PO SCH (09:00)
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
[2024-05-10 11:39] LABS: Glucose,Whole Blood 201 mg/dL (70-110)
--- NOTE | 2024-05-10 13:28 | P.DS ---
Providers Date of admission: 05/08/24 14:51 Expected date of discharge: 05/10/24 Attending physician: Prem Scales MD Consults: 05/08/24 16:24 Consult Physician Urgent Consulting Provider: Bob Madrigal Consult Reason/Comments: Seizures Do you want consulting provider notified?: Yes Primary care physician: Stated None Hospital Course: Discharge diagnosis: Generalised seizure, new onset vs secondary to hypoglycemia vs secondary to alcohol withdrawal Altered mental status, likely related to generalized seizure Previous intracerebral hemorrhage Left foot drop Chronic alcoholic liver disease Anxiety/depression Neuropathy Hospital Course: 59-year-old female, history of hypertension, COPD, CHF, liver disease, presents emergency department from [place] for reported seizure. Patient has no history of seizures patient reportedly had a long seizure and was given 2 mg Ativan IM by [place]. Patient has been postictal, drowsy from medication. Patient is unable to provide any information currently. Patient was recently discharged for ascites, acute hepatic encephalopathy patient had no reported head injury. Blood work completed in ED reveals a WBC of 4.4, hemoglobin of 9.7 and platelet count of 55, sodium 137, potassium 4.3, BUNs/creatinine of 25/0.68 and blood glucose of 43, troponin of 0.020, total b ilirubin 1.8, AST of 75, ALT 51 and alkaline phosphatase of 212, repeat blood glucose of 153, ammonia less than 9. CT of the brain does not reveal any acute intracranial hemorrhage or midline shift. No significant change from most recent prior CT. Chest x-ray reveals possible fluid overload state, correlate clinically. Patient is being admitted for further neurological workup for new onset seizures versus EtOH related seizures 05/09/24: Patient seen and examined at bedside today. UA is negative. No new complaints today. Glucose today is 184. 05/10/24: Patient evaluated at bedside. She is currently on 2L O2 via nasal cannula. No new complaints today. Labs today show Hb 9.2, hematocrit 29.6, MCV 108.2, RDW 17.1, platelet count 62, sodium 134, glucose 187. Prolactin is 17.6. Patient seen at bedside today and is feeling good and excited about discharge. Patient will be discharged today and is given a script for Keppra 500 mg daily. Patient is given a handout for seizures/epilepsy discharge instructions and follow up and is advised to get physical therapy for her left foot drop outpatient. Patient is advised to follow-up with PCP in 1-2 days . Vital signs are reviewed and stable General: appears at stated age Derm: warm, dry, intact Head: atraumatic, normocephalic, symmetric Mouth: no lip lesion, mucus membranes moist Cardiovascular: S1 S2 reg, no murmur Lungs: CTA bilateral, no rhonchi, no rales, no accessory muscle use Abdominal: soft, non-tender to palpataion Extremities: No cyanosis, clubbing, or pedal edema. Neuro: Alert and oriented Psych: well appearing, appropriate affect A total of 30 minutes of time were spent preparing this complex discharge summary. Patient was discharged on 05/10/24 at 1330. Patient Condition at Discharge: Stable Plan - Discharge Summary Discharge Rx Participant: Yes New Discharge Prescriptions: New levETIRAcetam [Keppra] 500 mg PO DAILY 14 Days #14 tab Continue Thiamine [Vitamin B-1] 100 mg PO DAILY Multivitamins, Thera [Multivitamin (formulary)] 1 tab PO DAILY Calcium Phos/D3/Magnesium/Zinc [Hiwwarh-Lmw-Lgsa-Vitamin D3] 1 tab PO TID PRN PRN Reason: muscle cramps Albuterol Sulfate [Ventolin HFA] 2 puff INHALATION RT-QID PRN PRN Reason: Shortness Of Breath Citalopram Hydrobromide [CeleXA] 40 mg PO DAILY Chlorpheniramine Maleate [Chlor-Trimeton] 4 mg PO Q4H PRN PRN Reason: Allergy Symptoms Gabapentin 600 mg PO BID PRN PRN Reason: NERVE PAIN traZODone HCL [Desyrel] 50 mg PO HS Lactulose [Cephulac] 30 gm PO TID 30 Days #4050 ml ondansetron HCL [Zofran] 8 mg PO Q6H PRN PRN Reason: Nausea And Vomiting Ibuprofen [Motrin Ib] 600 mg PO Q6H PRN PRN Reason: Fever And/ Or Pain Mylanta Regular Strength 30 ml PO Q4H PRN PRN Reason: GI UPSET busPIRone HCL 15 mg PO TID Docusate [Colace] 100 mg PO BID PRN PRN Reason: Constipation Furosemide [Lasix] 20 mg PO BID 14 Days #28 tab Spironolactone [Aldactone] 25 mg PO DAILY Discharge Medication List Albuterol Sulfate [Ventolin HFA] 2 puff INHALATION RT-QID PRN 01/05/24 [History] Calcium Phos/D3/Magnesium/Zinc [Aeoxohn-Ttg-Dqhs-Vitamin D3] 1 tab PO TID PRN 01/05/24 [History] Citalopram Hydrobromide [CeleXA] 40 mg PO DAILY 01/05/24 [History] Ibuprofen [Motrin Ib] 600 mg PO Q6H PRN 01/05/24 [History] Multivitamins, Thera [Multivitamin (formulary)] 1 tab PO DAILY 01/05/24 [History] Thiamine [Vitamin B-1] 100 mg PO DAILY 01/05/24 [History] ondansetron HCL [Zofran] 8 mg PO Q6H PRN 01/05/24 [History] Mylanta Regular Strength 30 ml PO Q4H PRN 01/10/24 [History] Chlorpheniramine Maleate [Chlor-Trimeton] 4 mg PO Q4H PRN 04/28/24 [History] Docusate [Colace] 100 mg PO BID PRN 04/28/24 [History] Gabapentin 600 mg PO BID PRN 04/28/24 [History] busPIRone HCL 15 mg PO TID 04/28/24 [History] traZODone HCL [Desyrel] 50 mg PO HS 04/28/24 [History] Furosemide [Lasix] 20 mg PO BID 14 Days #28 tab 05/05/24 [Rx] Lactulose [Cephulac] 30 gm PO TID 30 Days #4050 ml 05/05/24 [Rx] Spironolactone [Aldactone] 25 mg PO DAILY 05/08/24 [History] levETIRAcetam [Keppra] 500 mg PO DAILY 14 Days #14 tab 05/10/24 [Rx] Follow up Appointment(s)/Referral(s): [facility] [NON-STAFF] - 1-2 Days Antwan Nguyễn MD [STAFF PHYSICIAN] - 1 Week Patient Instructions/Handouts: Seizure/Epilepsy Discharge Instructions & Follow-Up Discharge Disposition: TRANSFER TO SNF/ECF
--- NOTE | 2024-05-10 14:52 | EEG ---
ELECTROENCEPHALOGRAM REPORT BRIEF HISTORY: Ms. West is a 59-year-old female with history of hepatitis C as well as intracerebral hemorrhage, who presents status post prolonged seizure activity. CURRENT MEDICATIONS: Keppra at this time. CHARACTERIZATION OF RECORD: This 24-minute electroencephalogram was characterized by background rhythm of 10 to 12 Hertz low beta rhythm, which was not occipitally dominant nor reactive to eye opening or eye closure. Photic stimulation was performed, but did not result in a driving response in any frequency. During the lateral portion of the electroencephalogram, there were poorly performed vertex waves as well as sleep spindles indicative of a late stage I to stage II sleep. Throughout the electroencephalogram, there was no evidence of focal slowing, focal spikes, sharp waves, or epileptiform discharge. CONCLUSION: This is a mildly abnormal electroencephalogram secondary to high frequency background, which could be seen in the setting of benzodiazepine use. There were no epileptiform discharges noted. MMODL / IJN: [id number] /
[2024-05-10 20:14] LABS: Glucose,Whole Blood 141 mg/dL (70-110)
[2024-05-11 06:04] LABS: Glucose,Whole Blood 108 mg/dL (70-110)
[2024-05-11 08:35] VITALS: BP 111/70; PULSE 93; RESP 18; TEMP 98.4
== END 2024-05-11 11:10 | disposition home or self-care (01) ==
LOC: EC 11:25 → 6NMEDSUR 14:51 → 3SCARD 20:27
PROVIDERS: ADMIT Internal Medicine; ATTEND Internal Medicine
DX: R56.9 Unspecified convulsions (principal); R41.82 Altered mental status, unspecified; M21.372 Foot drop, left foot; K70.9 Alcoholic liver disease, unspecified; F32.A Depression, unspecified; F41.9 Anxiety disorder, unspecified; I11.0 Hypertensive heart disease with heart failure; I50.9 Heart failure, unspecified; G62.9 Polyneuropathy, unspecified; J44.9 Chronic obstructive pulmonary disease, unspecified; F10.939 Alcohol use, unspecified with withdrawal, unspecified; Z86.73 Personal history of transient ischemic attack (TIA), and cerebral infarction without residual deficits; Z79.899 Other long term (current) drug therapy; R51.9 Headache, unspecified; F43.10 Post-traumatic stress disorder, unspecified; F17.200 Nicotine dependence, unspecified, uncomplicated; K74.60 Unspecified cirrhosis of liver
CPT/HCPCS: 96376 ×2; 96361 ×3; 96375 ×3; 96374; 99285; 36415; 94640 ×3; 94760; 95819; 93005; 80053; 80048; 82140; 83735; 84484; 85025; 85027; 81003; 84146; 71045; 70450; G0378 ×5; J1940 ×3; J2310; J1953 ×3